=== PATIENT | female | born 1965 | race Caucasian/White ===

== ENCOUNTER 2019-12-22 14:58 | Outpatient (CLI) | payer OTHER, SELFPAY ==
--- NOTE | ~2019-12-22 | MR_ITS ---
EXAMINATION: MR cervical spine wo con DATE: 12/22/2019 19:43 INDICATION: Cervical radiculopathy. TECHNIQUE: Magnetic resonance imaging (MRI) of the cervical spine was performed without intravenous c ontrast. Sequences included sagittal T2-weighted FSE, sagittal T2-weighted FS FSE, sagittal T1-weight ed FSE, axial MERGE, and axial T2-weighted FSE. COMPARISON: None FINDINGS: There is 4 degrees levocurvature of cervical spine. There is 2 mm retrolisthesis of C5 on C 6. Vertebral body heights are normal. There is mildly decreased disc height at C4-C5 and moderately d ecreased disc height at C5-C6. The spinal cord signal intensity is normal. The following disc levels are specifically discussed: C2-C3: The disc does not extend beyond the endplate margin. There is mild left uncovertebral joint os teoarthritis. There is mild bilateral facet joint osteoarthritis. There is mild left neural foraminal stenosis. There is no central canal stenosis. C3-C4: The disc does not extend beyond the endplate margin. There is mild bilateral uncovertebral sayda nt osteoarthritis. There is moderate bilateral facet joint osteoarthritis. There is mild bilateral ne ural foraminal stenosis. There is no central canal stenosis. C4-C5: The disc is bulging. There is moderate right and mild left uncovertebral joint osteoarthritis. There is severe right and mild left facet joint osteoarthritis. There is moderate right and mild lef t neural foraminal stenosis. There is mild central canal stenosis. C5-C6: The disc is bulging. There is severe bilateral uncovertebral joint osteoarthritis. There is mi ld bilateral facet joint osteoarthritis. There is moderate bilateral neural foraminal stenosis. There is mild central canal stenosis. C6-C7: The disc does not extend beyond the endplate margin. There is mild bilateral uncovertebral sayda nt osteoarthritis. There is moderate right and mild left facet joint osteoarthritis. There is mild ri ght neural foraminal stenosis. There is no central canal stenosis. C7-T1: The disc does not extend beyond the endplate margin. There is no uncovertebral joint osteoarth ritis. There is moderate bilateral facet joint osteoarthritis. There is mild bilateral neural foramin al stenosis. There is no central canal stenosis. IMPRESSION: 1. Moderate cervical spondylosis. Reviewed, dictated and finalized at location A.
== END 2019-12-22 14:59 | disposition home or self-care (01) ==
PROVIDERS: PCP Internal Medicine
DX: Z01.818 Encounter for other preprocedural examination (principal); M47.22 Other spondylosis with radiculopathy, cervical region
CPT/HCPCS: 72141

== ENCOUNTER 2020-03-07 15:51 | Outpatient (CLI) | payer OTHER, SELFPAY ==
--- NOTE | ~2020-03-07 | XR_ITS ---
XR foot LT min 3V 03/07/2020 16:07 Indication: Left foot pain anteriorly Procedure: 4 views left foot Comparison: No prior studies for comparison. Findings: There is a degenerative calcaneal enthesophyte at the plantar surface. No acute fracture or traumatic malalignment. Lisfranc joint is intact. No focal soft tissue abnormality. No radiopaque fo reign bodies. There is an accessory ossicle distal to the fibula. Impression: 1: No acute bone or joint abnormality. Reviewed, dictated and finalized at location A. Impression: 1: No acute bone or joint abnormality.
== END 2020-03-07 16:00 | disposition home or self-care (01) ==
PROVIDERS: PCP Internal Medicine; Visit Provider Internal Medicine
DX: M79.672 Pain in left foot (principal)
CPT/HCPCS: 73630

== ENCOUNTER 2020-03-19 11:48 | Outpatient (CLI) | payer OTHER, SELFPAY ==
--- NOTE | ~2020-03-19 | XR_ITS ---
XR_CERV2-3V_CR DATE: 03/19/2020 12:16 INDICATION: Post surgical evaluation TECHNIQUE: AP, open-mouth, lateral views COMPARISON: None FINDINGS: There is straightening of the cervical spine. C1 and C2 are normally aligned and the odonto id process is intact. No fracture or dislocation or locked facet or prevertebral soft tissue swelling. Status post anterior and interbody spinal fusion at C5-6. IMPRESSION: Status post anterior and interbody spinal fusion at C5-C6 Straightening Reviewed, dictated and finalized at Location A. Reviewed, dictated and finalized at location A.
== END 2020-03-19 11:49 | disposition home or self-care (01) ==
PROVIDERS: PCP Internal Medicine
DX: M50.20 Other cervical disc displacement, unspecified cervical region (principal); Z98.1 Arthrodesis status
CPT/HCPCS: 72040

== ENCOUNTER 2020-04-17 12:45 | Outpatient (CLI) | payer OTHER, SELFPAY ==
--- NOTE | ~2020-04-17 | MR_ITS ---
EXAMINATION: MR brain/brain stem wo con EXAM DATE: 04/17/2020 13:27 INDICATION: Posterior migraine headaches. TECHNIQUE: Magnetic resonance imaging (MRI) of the brain/brain stem obtained without contrast. Sagitt al T1, axial diffusion, gradient echo (T2*), T1, T2, FLAIR sequences obtained. There is no prior st udy for comparison. FINDINGS: There are no areas of restricted diffusion to suggest acute infarction. There is no acute hemorrhage seen on the T2*, a hemosiderin sensitive sequence. No intraparenchymal brain mass. The ve ntricles are normal in size. There are no extra-axial collections. Flow voids are seen in the cereb ral arteries on the T2-weighted sequences consistent with their expected patency. Patient has had ri ght-sided ocular lens surgery. Soft tissue is unremarkable. Small left maxillary sinus mucous rete ntion cyst. Cervical fusion hardware. IMPRESSION: 1. Unremarkable brain MRI examination. Reviewed, dictated and finalized at location B.
== END 2020-04-17 12:46 | disposition home or self-care (01) ==
LOC: ANHIMG 12:48
PROVIDERS: PCP Internal Medicine; Visit Provider Internal Medicine
DX: R29.898 Other symptoms and signs involving the musculoskeletal system (principal); G43.819 Other migraine, intractable, without status migrainosus
CPT/HCPCS: 70551

== ENCOUNTER 2020-05-23 14:21 | Outpatient (CLI) | payer OTHER, SELFPAY ==
--- NOTE | ~2020-05-23 | XR_ITS ---
XR_CERV2-3V_CR DATE: 05/23/2020 14:37 INDICATION: Post surgical arthrodesis status TECHNIQUE: AP and lateral views COMPARISON: 03/19/2020 cervical spine FINDINGS: There is straightening of the cervical spine. Status post anterior and interbody spinal fusion at C5-6. C1 and C2 are normally aligned and the odontoid process is intact. No fracture or dislocation or lock ed facet or prevertebral soft tissue swelling. There is minimal anterolisthesis at C4-5, stable since . IMPRESSION: Status post anterior and interbody spinal fusion at C5-6 Stable minimal anterolisthesis at C4-5 Straightening of the cervical spine Reviewed, dictated and finalized at Location A. Reviewed, dictated and finalized at location A. [employer]
== END 2020-05-23 14:22 | disposition home or self-care (01) ==
PROVIDERS: PCP Internal Medicine
DX: M50.20 Other cervical disc displacement, unspecified cervical region (principal); Z98.1 Arthrodesis status
CPT/HCPCS: 72040

== ENCOUNTER 2020-08-03 09:00 | Outpatient (RCR) | payer OTHER, SELFPAY ==
--- NOTE | 2020-06-18 10:05 | PTOPEVAL ---
PHYSICAL THERAPY EVALUATION Thank you for referring Zahira Wiley to [facility].? The patient was evaluated with a dx of cervical pain/sprain. The patient is scheduled to be seen for therapy? 2 x/week for 4 weeks. Please review, sign, date and return this plan of care DEMARIO. I agree with and certify that the following plan of care is medically necessary. Referring Physician Date Attending Provider: Srinath Matos *PT Outpatient Evaluation Start: 06/18/20 08:33 Freq: Status: Active Protocol: Document 06/18/20 08:34 MLV (Rec: 06/18/20 09:53 MLV [id number]) Therapy Assessment Status Evaluation Information Problem Diagnosis cervical pain Onset 05/09/20 Cause tried to push a heavy w/c Additional Evaluation Detail Patient had cervical surgery January 2020 for a fusion (C5-C6) and recovered well. The patient was working and had trouble pushing a heavy w/c 2019 and felt neck and right arm pain. The patient has done 2 rounds of steroids with some relief. Subjective Information Patient currently taking Query Text:As Reported By Patient/ gabapentin, hydrocodone for Family neck issue Diagnostic Tests X-Rays For This Problem Yes: after injury : xray showed no trouble with fusion Pain Assessment Timing of Pain Assessment Timing of Pain Assessment Assessment Pain Scale Pain Scale Used Numeric (1 - 10) Self Report Pain Assessment Right Shoulder(s) Reported Pain Level 6 Pain Description Pressure,Tingling Radicular Pain Location tingling to right hand Pain Frequency Acute,Continuous Pain Aggravating Factors ADL's,Exercise/Activity, Lifting Other Pain Aggravating Factors sidelying/sleeping Pain Behaviors None Neck Reported Pain Level 4 Pain Description Pressure Pain Frequency Acute,Continuous Pain Aggravating Factors Exercise/Activity Pain Behaviors None Pain Score Pain Score 4,6: Self Report Interventions Used Interventions Used By Clinicians Education Pain Relief Interventions Used By Heat,Ice,Inactivity/Rest, Patient Medication Cervical and Lumbar ROM Cervical ROM Cervical Flexion (0-60) 50 Query Text:Active in Degrees Cervical Extension (0-70) 10 Query Text:Active in Degrees Cervical Lateral Flexion Right (0-50) 28 Query Text:Act
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
--- NOTE | 2020-08-03 09:45 | PTOPEVAL ---
PHYSICAL THERAPY DISCHARGE SUMMARY Thank you for referring Zahira Wiley to [facility] [place].? The patient has been seen 12 visits for the dx of cervical pain/radiculopathy. The patient is peaked with goals partially met. PT is discontinued as of this date. Please review, sign, date and return this plan of care. I agree with and certify the following plan of care. Referring Physician Date Attending Provider: Srinath Matos *PT Outpatient Discharge Start: 06/18/20 08:33 Freq: Status: discharged Protocol: Document 08/03/20 09:12 MLV (Rec: 08/03/20 09:45 MLV [id number]) Assessment Status Discharge Evaluation Information Problem Additional Evaluation Detail The patient reports being compliant with exercises and feels her pain is still an issue and is concerned about the continued numbness. The pateint reports frequent arm numbness that is short lived because she can change position and eliminate it. The patient takes the naproxyn and hydrocodone still. Pain Assessment Timing of Pain Assessment Timing of Pain Assessment Pre-Treatment Pain Scale Pain Scale Used Numeric (1 - 10) Self Report Pain Assessment Right Shoulder(s) Reported Pain Level 5 Pain Description Aching Pain Frequency Chronic Neck Reported Pain Level 5 Pain Frequency Chronic Pain Score Pain Score 5,5: Self Report Interventions Used Interventions Used By Clinicians Education,Heat Pain Relief Interventions Used By Exercise,Heat,Position Change Patient Cervical and Lumbar ROM Cervical ROM Cervical Flexion (0-60) 45 Query Text:Active in Degrees Cervical Extension (0-70) 52 Query Text:Active in Degrees Cervical Lateral Flexion Right (0-50) 37 Query Text:Active in Degrees Cervical Lateral Flexion Left (0-50) 29 Query Text:Active in Degrees Cervical Rotation Right (0-90) 60 Query Text:Active in Degrees Cervical Rotation Left (0-90) 60 Query Text:Active in Degrees Palpation Assessment Palpation Palpation 50-70% improved tissue and muscle tightnesses at cervicothoracic region PT Clinical Summary Mrs. Wiley is a 54 y/o female seen 12 visits for the dx of cervical pain with right arm radiculopathy. The
== END 2020-08-03 10:41 | disposition home or self-care (01) ==
LOC: ANHPT 09:00
PROVIDERS: PCP Internal Medicine
DX: M54.2 Cervicalgia (principal); Z98.1 Arthrodesis status
CPT/HCPCS: 97014; 97032; 97110; 97140; 97161; G0283

== ENCOUNTER 2020-10-31 09:41 | Outpatient (CLI) | payer OTHER, SELFPAY ==
--- NOTE | ~2020-10-31 | MM_ITS ---
EXAMINATION: MM screening ahmet BI w charline HISTORY: Screening mammogram TECHNIQUE: Craniocaudal and mediolateral oblique 3-D tomosynthesis images were obtained and synthetic 2-D images were generated. CAD analysis was submitted and interpreted. COMPARISON: No prior mammogram is available for comparison at this institution. BREAST PARENCHYMAL COMPOSITION: The breasts are almost entirely fatty. FINDINGS: There is no evidence of suspicious mass, calcification, or architectural distortion to sugg est malignancy in either breast. There has been no suspicious interval change. IMPRESSION: 1. No mammographic evidence of malignancy. 2. Recommend routine screening mammography in one year. BI-RADS Category 1: Negative Reviewed, dictated and finalized at location A.
== END 2020-10-31 09:42 | disposition home or self-care (01) ==
PROVIDERS: PCP Internal Medicine; Visit Provider Internal Medicine
DX: Z12.31 Encounter for screening mammogram for malignant neoplasm of breast (principal)
CPT/HCPCS: 77063; 77067

== ENCOUNTER 2020-11-24 02:17 | Emergency (ER) | payer OTHER, SELFPAY ==
[2020-11-24 02:26] VITALS: BP 161/88; PULSE 93; RESP 20; TEMP 36.4; O2SAT 95
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
--- NOTE | 2020-11-24 03:46 | PC.NURSE ---
Pt ambulated in restroom to provide urine specimen. Steady gait noted.
--- NOTE | 2020-11-24 04:16 | PC.NURSE ---
Pt resting on cart conversing with family member. Pt remains alert and oriented x4 with stable vitals and in no obvious distress at this time. pt advised to press call button for assistance.
[2020-11-24 04:44] LABS: Amphetamine Screen Urine Negative (Negative); Barbiturate Screen Urine Negative (Negative); Benzodiazepines Screen Urine Negative (Negative); Cannabinoid Screen Urine Positive (Negative); Cocaine Screen Urine Negative (Negative); Methadone Screen Urine Negative (Negative); Opiate Screen Urine Positive (Negative); Phencyclidine Screen Urine Negative (Negative)
--- NOTE | 2020-11-24 04:49 | PC.NURSE ---
Pt resting on cart and family member remains at bedside. Pt states she feels better and is ready to go home. Pt remains alert and oriented x4 and in on obvious distress with stable vitals. Advised to press call button for assistance.
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
--- NOTE | 2020-11-24 05:08 | PC.NURSE ---
EDMD presented to bedside to update pt on poc. All questions and concerns addressed. Pt ready for dc.
[2020-11-24 05:26] VITALS: BP 137/73; PULSE 83; RESP 19; TEMP 37.1; O2SAT 98
[2020-11-24 05:27] VITALS: BP 137/73; PULSE 83; RESP 19; O2SAT 98
== END 2020-11-24 05:28 | disposition home or self-care (01) ==
PROVIDERS: Emergency Provider Emergency Medicine; PCP Internal Medicine
DX: F11.129 Opioid abuse with intoxication, unspecified (principal); F12.929 Cannabis use, unspecified with intoxication, unspecified
CPT/HCPCS: 80307; 99283

== ENCOUNTER 2021-01-25 08:01 | Outpatient (CLI) | payer OTHER, SELFPAY ==
--- NOTE | 2021-01-25 | ECHO_ITS ---
Patient Info Name: Zahira Wiley Age: 55 years : 1965 Gender: Female Ht: 66 in Wt: 210 lbs BSA: 2.14 m2 HR: 73 bpm BP: 124 / 81 mmHg Heart Rhythm: Sinus Rhythm Exam Date: 01/25/2021 8:18 AM Exam Location: [facility] Pulmonary Patient Status: Outpatient Admit Date: 01/25/2021 Staff Ordering Physician: Radha Self Ornamental Metalwork Designer: Argentina Prince RDCS Attending Provider: Radha Self Referring Physician: Clair GREY; Exam Type: CA echo doppler color flow Study Info Indications - HEART MURMUR, HTN Complete two-dimensional, color flow and Doppler transthoracic echocardiogram is performed. Summary 1. Complete two-dimensional, color flow and Doppler transthoracic echocardiogram is performed. 2. Left ventricular chamber dimension is normal. 3. Left ventricular systolic function is normal, estimated at 60-65%. 4. The left ventricular diastolic function is grade I diastolic dysfunction. 5. E/e' 11 is mildly elevated. 6. There is mild aortic valve sclerosis. 7. There is trace aortic valve regurgitation. 8. There is trace tricuspid valve regurgitation. 9. No pulmonary hypertension, estimated pulmonary arterial systolic pressure is 22 mmHg. Left Ventricle E/e' 11 is mildly elevated. Left ventricular chamber dimension is normal. Left ventricular systolic function is normal, estimated at 60-65%. The left ventricular diastolic function is grade I diastolic dysfunction. Right Ventricle Right ventricular chamber dimension is normal. Right ventricular systolic function is normal. Left Atria Left atrial chamber dimension is normal. Right Atria Right atrial chamber dimension is normal. Aortic Valve The aortic valve is trileaflet. There is mild aortic valve sclerosis. There is no aortic valve stenosis. There is trace aortic valve regurgitation. Pulmonic Valve There is no pulmonic regurgitation. Mitral Valve There is no mitral valve stenosis. There is no mitral valve regurgitation. Tricuspid Valve There is trace tricuspid valve regurgitation. No pulmonary hypertension, estimated pulmonary arterial systolic pressure is 22 mmHg. Pericardium/Pleural There is no pericardial effusion. Inferior Vena Cava Normal inferior vena cava with >50% collapse upon inspiration consistent with normal right atrial pressure, 5 mmHg. Aorta The aortic root size at the sinus of Valsalva is normal. Left Ventricular Outflow Tract Name Value Normal LVOT 2D LVOT Diameter 1.6 cm LVOT Doppler LVOT Peak Gradient 4 mmHg LVOT Mean Gradient 2 mmHg LVOT VTI 25 cm LVOT VTI/AV VTI Ratio 0.7 LVOT Stroke Volume 48 ml LVOT CO 3.4 l/min LVOT CI 1.6 l/min/m2 Pulmonic Valve Name Value Normal RVOT Do
== END 2021-01-25 08:02 | disposition home or self-care (01) ==
PROVIDERS: PCP Internal Medicine
DX: R07.9 Chest pain, unspecified (principal); I10 Essential (primary) hypertension; I35.1 Nonrheumatic aortic (valve) insufficiency
CPT/HCPCS: 93306

== ENCOUNTER 2021-04-25 10:03 | Outpatient (CLI) | payer OTHER, SELFPAY ==
--- NOTE | 2021-04-25 | EST_ITS ---
Patient Info Name: Zahira Wiley Age: 55 years : 1965 Gender: Female Ht: 66 in Wt: 220 lbs BSA: 2.20 m2 HR: 69 bpm BP: 148 / 81 mmHg Heart Rhythm: Sinus Rhythm Exam Date: 04/25/2021 10:29 AM Exam Location: [facility] Stress Patient Status: Outpatient Admit Date: 04/25/2021 Staff Ordering Physician: Dwain, Aaron Mathis MD Attending Provider: Dwain, Aaron Mathis MD Exercise Technologist: Gayle Lal CT Exercise Physician: Umair Grajeda DO Exam Type: CA stress test treadmill Study Info Indications Z01.818 - Encounter for other preprocedural examination An exercise stress test was performed. Summary 1. 1. Negative Raudel exercise stress test for ischemic ST changes by ECG criteria. 2. 2. Reduced functional capacity, achieving 7 METs of workload. 3. 3. Baseline hypertension with hypertensive response to exercise. 4. 4. Appropriate HR response to exercise. 5. 5. Appropriate HR recovery at 1 minute post exercise. 6. 6. No imaging with stress testing. 7. 7. Patient informed of the above results. Protocol: Raudel Stress ECG Details Stage: REST Duration (min): 1 min : 17 sec Speed (mph): 0.0 Grade (%): 0 HR (bpm): 68 SBP (mmHg): 148 DBP (mmHg): 81 METS: --- Stage: REST Duration (min): 9 min : 38 sec Speed (mph): 0.0 Grade (%): 0 HR (bpm): 79 SBP (mmHg): 148 DBP (mmHg): 81 METS: --- Stage: STAGE 1 Duration (min): 1 min : 0 sec Speed (mph): 1.7 Grade (%): 10 HR (bpm): 108 SBP (mmHg): 148 DBP (mmHg): 81 METS: --- Stage: STAGE 1 Duration (min): 2 min : 0 sec Speed (mph): 1.7 Grade (%): 10 HR (bpm): 124 SBP (mmHg): 148 DBP (mmHg): 81 METS: --- Stage: STAGE 1 Duration (min): 3 min : 0 sec Speed (mph): 1.7 Grade (%): 10 HR (bpm): 127 SBP (mmHg): 197 DBP (mmHg): 100 METS: --- Stage: STAGE 2 Duration (min): 1 min : 0 sec Speed (mph): 2.5 Grade (%): 12 HR (bpm): 141 SBP (mmHg): 197 DBP (mmHg): 100 METS: --- Stage: STAGE 2 Duration (min): 2 min : 0 sec Speed (mph): 2.5 Grade (%): 12 HR (bpm): 156 SBP (mmHg): 218 DBP (mmHg): 94 METS: --- Stage: STAGE 2 Duration (min): 3 min : 0 sec Speed (mph): 2.5 Grade (%): 12 HR (bpm): 160 SBP (mmHg): 218 DBP (mmHg): 94 METS: --- Stage: RECOVERY Duration (min): 0 min : 59 sec Speed (mph): 0.0 Grade (%): 0 HR (bpm): 138 SBP (mmHg): 202 DBP (mmHg): 94 METS: --- Stage: RECOVERY Duration (min): 1 min : 59 sec Speed (mph): 0.0 Grade (%): 0 HR (bpm): 106 SBP (mmHg): 202 DBP (mmHg): 94 METS: --- Stage: RECOVERY Duration (min): 2 min : 59 sec Speed (mph): 0.0 Grade (%): 0 HR (bpm): 91 SBP (mmHg): 208 DBP (mmHg): 85 METS: --- Stage: RECOVERY Duration (min): 3 min : 59 sec Speed (mph): 0.0 Grade (%): 0 HR
== END 2021-04-25 10:04 | disposition home or self-care (01) ==
PROVIDERS: PCP Internal Medicine; Visit Provider Internal Medicine
DX: R07.89 Other chest pain (principal); Z01.818 Encounter for other preprocedural examination
CPT/HCPCS: 93017

== ENCOUNTER 2021-08-06 08:00 | Outpatient (CLI) | payer OTHER, SELFPAY | END 2021-08-06 08:01 | disposition home or self-care (01) | LOC: ANHBWCAUD 08:01 | PROVIDERS: PCP Internal Medicine; Visit Provider Otolaryngology | DX: R06.83 Snoring (principal); R29.818 Other symptoms and signs involving the nervous system; G47.33 Obstructive sleep apnea (adult) (pediatric); H90.42 Sensorineural hearing loss, unilateral, left ear, with unrestricted hearing on the contralateral side | CPT/HCPCS: 92557; 92567 ==

== ENCOUNTER 2021-08-09 07:49 | Outpatient (CLI) | payer OTHER, SELFPAY ==
--- NOTE | 2021-08-12 15:08 | WPDHOMESLEEP ---
Sleep Study - Home Unattended Date of Study: 08/09/21 <Marianne Spivey DO - Last Filed: 08/12/21 15:29> Ordering Provider: Israel Eugene APRN <Marianne Spivey DO - Last Filed: 08/12/21 15:29> Interpreting Provider: Marianne Spivey DO <Marianne Spivey, DO - Last Filed: 08/12/21 15:29> Home Sleep Study Type: Watch PAT <Marianne Spivey DO - Last Filed: 08/12/21 15:29> Height: 1.68 m <Marianne Spivey DO - Last Filed: 08/12/21 15:29> Weight: 102.058 kg <Marianne Spivey DO - Last Filed: 08/12/21 15:29> Body Mass Index: 36.3 <Marianne Spivey DO - Last Filed: 08/12/21 15:29> Neck Circumference (inches): 16 <Marianne Spivey DO - Last Filed: 08/12/21 15:29> [place]: 8 <Marianne Spivey DO - Last Filed: 08/12/21 15:29> Reason for Sleep Study Evaluation of DANYELLE. Daytime hypersomnia <Marianne Spivey DO - Last Filed: 08/12/21 15:29> Sleep History The patient is a 55-year-old female with anxiety, chronic headaches, 3rd is and hypertension that had a home sleep test ordered by the pulmonary group for evaluation of DANYELLE. The patient states that she wakes up with a rapid heart rate multiple times throughout the night. This has been going on for the past 4-6 months. Her brother and father have DANYELLE and are [place] past. Patient rarely awakens from sleep short of breath. She rarely awakens at night with heartburn, belching or cough. She occasionally snores but it is really loud enough that others complain. She occasionally has trouble sleeping she has a cold. She denies waking up gasping for air through the night. She rarely has breathing problems at night observed by others. She frequently sweats excessively at night. She occasionally has heart palpitations or irregular beats during the night. She denies falling asleep during the day and while driving. She frequently has trouble at work due to sleepiness. She occasionally feels unable to move while waking or falling asleep. She occasionally has vivid dreamlike scenes upon awakening or falling asleep. She rarely has nightmares. She occasionally has thoughts racing through her mind. She occasionally feels sad or depressed. She occasionally has anxiety. She occasionally notices parts of her body jerk when falling asleep. She rarely kicks during the night. She rarely has crawling and aching feelings in her legs and rarely has leg pain during the night. She rarely grinds her teeth during sleep and rarely awakens with a morning jaw pain. She constantly is bothered by neck pain during the day and frequently awakened by pain during the night. She constantly wakes up feeling stiff in the morning with sore and achy muscles. She constantly wakes up with pain in the neck, spine and other joints. She does take [place] 5/325 as needed for neck pain. She goes to bed at 11:00 p.m. on weekdays and between 11:00 p.m. and midnight on the weekends. It takes her 30 minutes to an hour to fall asleep. She wakes up 4-6 times throughout the night to adjust her patella. She can fall back asleep within 5 minutes. She gets 8 hours of sleep per night. She wakes up at 6:15 a.m. on work days and between 9 and 10:00 am on other days. she will stay in bed for 20 minutes after waking up in the morning. She has her boyfriend stay over the weekends. She does not consume any caffeinated beverages within 2 hours of bedtime. She does not engage in physical exercise before bedtime. She will watch television before falling asleep. She will take half in the afternoon or the evening and they are refreshing. She consumes 2 caffeinated beverages per day. Nine she drinks 1-2 alcoholic beverages per day. She denies tobacco or recreational drug use. <Marianne Spivey, - Last Filed: 08/12/21 15:29> [facility] Past Medical History Medical History: Medical History
[2021-08-12 15:16] VITALS: BMI 36.3
== END 2021-08-12 13:11 | disposition home or self-care (01) ==
LOC: ANHCSM 07:49
PROVIDERS: PCP Internal Medicine; Visit Provider Nurse Practitioner Family
DX: G47.31 Primary central sleep apnea (principal)
CPT/HCPCS: 95800

== ENCOUNTER 2022-08-26 12:30 | Outpatient (RCR) | payer OTHER, SELFPAY ==
--- NOTE | 2022-08-01 11:46 | PTOPEVAL1 ---
Assessment and note entered by Chiara Santana, PT Evaluation Information Assessment Status Evaluation Diagnosis s/p cervical fusion, radiculopathy Onset Jun 03, 2022 Subjective Information since surgery, lifting restriction to gallon of milk, some neck motions to stretch a little; previous PT prior to surgery- massage, exercises and stim helped; have lifting restriction of light weight only-- gallon of milk; limited cleaning and home tasks due to neck pain and lifting limits; have home stim unit- have not been using-- discussed PRN use; Reported Pain Level Pain Score Self Report Additional Pain Score Comments pain range of 3-7/10;sharp pain with turn head, strong pain at times; R and L cervical and B into elbows, hands--intermittent tingling into palm, not fingers; increase pain at end of day, with driving 15 min, sleeping--awaken 4-5x/night due to pain; activity and use of arms; sitting 20 min; decrease change positions, walk, ice, meds-- gabapentin, hydrocodone at night and PRN day time; muscle relaxer; Neck Disability Index 50% limitation; Assessment PT Clinical Summary Chiara is s/p cervical fusion surgery in May. This was her third cervical surgery. She reports radicular pain into R and L UE to palms/hands; decreased activity tolerance with home tasks and driving; sleeping, sitting disrupted. Self assessment Neck Disability Index is 50% limitation in activity. With the evaluation, she has pain with cervical flexion, extension, rotation R and L motions; poor standing position of neck and shoulders and muscle spasms over neck and thoracic area. Skilled PT services are indicated for modalities to decrease pain and spasms; manual therapy to decrease adhesions over cervical scar; therapeutic exercises to stretch cervical musculature and strengthen for improved posture and alignment; education for home exercises, posture correction and management of pain. Plan of Care Interventions Electrical Stimulation,Hot Pack/Cold Pack,Manual Therapy,Neuro Re-education,Patient/Caregiver Education,Therapeutic Activities,Therapeutic Exercise,Ultrasound,Other Other Interventions
--- NOTE | 2022-08-19 07:59 | PCPTNOTE ---
Patient called to cancel. No reason given.
--- NOTE | 2022-08-28 10:22 | PCPTNOTE ---
Patient called & cancelled scheduled appointment this date due to having to take her dog to the tire fabric inspector to be put down. Will attempt to reschedule evaluation as able.
--- NOTE | 2022-09-08 09:53 | PTOPDC ---
Assessment and note entered by Maggi Franco, PT, DPT Evaluation Information Assessment Status Discharge - Pt Not Present Diagnosis s/p cervical fusion, radiculopathy Onset Jun 03, 2022 Subjective Information Pt called and cancelled her scheduled re- evaluation this date, she states her doctor told her she does not need to continue therapy. Assessment PT Clinical Summary Betina completed 5 visits of skilled therapy from 08/01/22 to 08/26/22. She will be discharged at this time, if she needs additional therapy at a later date, she will need a new order. Plan of Care Treatment Frequency and discharge Duration
== END 2022-09-08 10:19 | disposition home or self-care (01) ==
LOC: ANHGOSHPT 12:30
PROVIDERS: PCP Internal Medicine; Visit Provider Neurological Surgery
DX: M54.12 Radiculopathy, cervical region (principal); M54.2 Cervicalgia; Z98.1 Arthrodesis status
CPT/HCPCS: 97110; 97112; 97140; 97161

== ENCOUNTER 2025-02-27 11:14 | Emergency (ER) | payer OTHER, SELFPAY ==
[2025-02-27] VITALS (8 sets, daily range): BP systolic 121–138; BP diastolic 45–86; PULSE 65–80; RESP 12–16; TEMP 36.4; O2SAT 96–100
--- NOTE | ~2025-02-27 | XR_ITS ---
EXAM/PROCEDURE: XR chest 2V - 02/27/2025 12:42 CDT HISTORY: 59 years old Female with cp TECHNIQUE: Two view(s) of the chest. COMPARISON: None available. FINDINGS: LUNGS/ PLEURA: No focal consolidation. No appreciable pneumothorax or large pleural effusion. HEART/ MEDIASTINUM: Heart appears normal in size. BONES: No acute osseous abnormality. Partially seen cervical fusion hardware. OTHER: Visualized upper abdomen is unremarkable. IMPRESSION: No acute process. Reviewed, dictated and finalized at location A. IMPRESSION: No acute process.
--- NOTE | 2025-02-27 11:16 | ECG_ITS ---
Test Date: 2025-02-27 11:18:50 Measurements Intervals [place] Rate: 73 P: 58 AR: 167 QRS: 32 QRSD: 82 T: 56 QT: 394 QTc: 435 Interpretive Statements SINUS RHYTHM POSSIBLE LEFT ATRIAL ENLARGEMENT MINIMAL Q WAVES- INFERIOR LEADS BORDERLINE ST ABNORMALITY- ANTEROLATERAL LEADS BASELINE ARTIFACT- V5-V6 BORDERLINE ECG No previous ECG available for comparison Electronically Signed On 02-27-2025 11:29:18 CDT by Umair Grajeda D.O.
[2025-02-27 11:43] LABS: Hematocrit 40.1 % (37.0-47.0); Hemoglobin 13.3 g/dL (12.0-15.0); Immature Granulocyte Percent A 0.4 % (0-0.5); Lymphocytes Absolute Auto 1.99 K/mm3 (0.9-3.2); Mean Corpuscular HGB Conc 33.2 g/dl (32-36); Mean Corpuscular Hemoglobin 31.6 pg (26-34); Mean Corpuscular Volume 95.2 fl (80-100); Nucleated Red Blood Cells Absolute Auto 0.000 K/mm3 (0.0-0.012); Nucleated Red Blood Cells Perc 0.0 % (0.0-0.2); Platelet Count Result 289 k/mm3 (150-375); Red Blood Count 4.21 M/mm3 (4.2-5.4); White Blood Count 8.5 K/mm3 (4.5-10.0)
[2025-02-27 11:52] LABS: Alanine Aminotransferase 59 U/L (6-35); Albumin Level 4.4 g/dL (3.5-5.1); Alkaline Phosphatase 111 U/L (38-126); Anion Gap 10 mmol/L (4-12); Aspartate Amino Transferase 54 U/L (14-36); Bilirubin,Total 0.6 mg/dL (0.2-1.3); Blood Urea Nitrogen 8 mg/dL (7-17); Calcium 9.4 mg/dL (8.4-10.2); Carbon Dioxide 27 mmol/L (22-30); Chloride 100 mmol/L (98-107); Estimated Glomerular Filt Rate > 60; Glucose 111 mg/dL (65-110); Lipase 146 U/L (23-300); Potassium 3.6 mmol/L (3.4-5.0); Sodium 137 mmol/L (137-145); Total Protein 7.9 g/dL (6.3-8.2)
[2025-02-27 12:00] LABS: INR 1.0; Prothrombin Time 13.2 Seconds (11.1-14.7)
[2025-02-27 12:01] LABS: Partial Thromboplastin Time 26.0 Seconds (22.3-36.8)
[2025-02-27 12:04] LABS: Troponin I < 0.012 ng/mL (0.000-0.034)
--- OUTSIDE RECORDS SUMMARY | 2025-02-27 12:36 | XMS_ITS | Encounter Summary ---
Author Organization [facility] Healthcare Address [address] [place] [address] Care Team Providers Care Instrument Technician Apprentice Name Role Phone Aaron Prakash MD Primary Care Provider + Froilan Villeda MD Primary Care Provider [phone] Encounter Details Date Type Department Care Team (Late st Contact Info) Description 09/10/2020 Telephone [facility] [address], [place] [id number] Kayla Blevins, RT Social History Tobacco Use Types Packs/Day Years Used Date Smoking Tobacco: Never Smokeless Tobacco: Never Alcohol Use Standard Drinks/Week Comments Yes 0 (1 standard drink = 0.6 oz pur e alcohol) Comments No Sex and Gender Information Value Date Recorded Sex Assigned at Not on file Legal Sex Female 4:40 PM HAND SANDER Gender Identity Female 12/23/2021 6:44 PM CDT Sexual Orientation Straight 04/27/2019 2: 53 PM CDT documented as of this encounter Plan of Treatment Not on file documented as of this encounter Visit Diagnoses Not on filedocumented in this encounter Care Teams Instrument Technician Apprentice Relationship Specialty Start Date End Date Aaron Prakash MD PCP - General Internal Medicine 02/03/18 09/27/23 Froilan Villeda MD [address] [place] [id number] PCP - General Internal Medicine 09/28/23 documented as of this encounter
--- OUTSIDE RECORDS SUMMARY | 2025-02-27 12:36 | XMS_ITS | Clinical Summary ---
Author Organization [facility] Address [address] [place] [address] Care Team Providers Care Log Sorting Supervisor Name Role Phone Froilan Villeda MD Primary Care Provider [phone] Allergies Active Allergy Reactions Criticality Noted Date Comments Codeine Nausea and Vomiting,Nausea Only Low 05/19/2012 Iodinated Contrast Media Hives,Itching High 05/22/2011 Lisinopril-Hydrochlor othiazide Rash Medium 04/05/2021 Nuts Anaphylaxis,Swelling High 06/23/2016 Also allergic to PECANS Also allergic to PECANS Throat swells, itching Also allergic to PECANS, WALNUTS Throat swells, itching Medications ketoconazole (NIZORAL) 2 % shampoo 11/27/19 23 Active Apremilast (OTEZLA) 10 & 20 & 30 MG Tablet Therapy Pack Please take pills daily as outlined: Day 1: 10 mg in morning. Day 2: 10 mg in morning and 10 mg in evening. Day 3: 10 mg in morning and 20 mg in evening. Day 4: 20 mg in morning and 20 mg in evening.Day 5: 20 mg in morning and 30 mg in evening. Day 6 and thereafter: 30 mg twice daily 10/16/19 24 Active clobetasol (TEMOVATE) 0.05 % external solution 11/10/19 24 Active EPINEPHrine 0.3 MG/0.3ML injectionIndicat ions:Drug therapy Inject 0.3 mLs (0.3 mg total) into the muscle as needed for Anaphylaxis. 1 each 1 06/27/20 24 Active gabapentin (NEURONTIN) 100 MG tablet Take 1 tablet (100 mg total) by mouth as needed. Active CPAP DEVICE, DME,Indications: DANYELLE (obstructive sleep apnea) Send to Aprtx 1 Device 10/19/19 25 Active ALPRAZolam (XANAX) 0.25 MG tabletIndication s:SHAHEEN (generalized anxiety disorder) Take 1 tablet (0.25 mg total) by mouth nightly as needed. 20 tablet 10/22/19 25 Active metoprolol succinate ER (TOPROL-XL) 50 MG 24 hr tabletIndication s:Essential (primary) hypertension Take 1 tablet (50 mg total) by mouth daily. 90 tablet 1 01/11/20 25 Active losartan-hydroCH LOROthiazide (HYZAAR) 100-12.5 MG tabletIndication s:Essential (primary) hypertension,Low er extremity edema Take 1 tablet by mouth daily. 90 tablet 1 01/11/20 25 Active HYDROcodone-acet aminophen (NORCO) 10-325 MG tabletIndication s:Chronic Pain Take 1 tablet by mouth daily as needed. Indications: Chronic Pain 30 tablet 01/11/20 25 Active methocarbamol (ROBAXIN) 750 MG TabIndications:C ervical vertebral fusion Take 1 tablet (750 mg total) by mouth 3 (three) times daily as needed. 90 tablet 1 01/11/20 25 Active DULoxetine (CYMBALTA) 60 MG capsuleIndicatio ns:Mild episode of recurrent major depressive disorder,SHAHEEN (generalized anxiety disorder) TAKE 2 CAPSULES BY MOUTH AT BEDTIME 180 capsule 1 01/11/20 25 Active buPROPion XL (WELLBUTRIN XL) 300 MG 24 hr tabletIndication s:Mild episode of recurrent major depressive disorder Take 1 tablet (300 mg total) by mouth every morning. 90 tablet 1 01/11/20 25 Active azelastine 0.1 % nasal sprayIndications :Nasal congestion 2 sprays by Nasal route 2 (two) times daily as needed for Rhinitis. Use in each nostril as directed 10 mL 3 01/11/20 25 Active tacrolimus (PROTOPIC) 0.1 % ointment Apply to face and body two times daily. 30 days supply. Reasons: Psoriasis 12/17/19 25 Active methylphenidate LA (RITALIN LA) 20 MG 24 hr capsuleIndicatio ns:Attention deficit hyperactivity disorder (ADHD), combined type Take 1 capsule (20 mg total) by mouth every morning. 30 capsule 02/18/20 25 Active gabapentin (NEURONTIN) 300 MG capsuleIndicatio ns:Degenerative cervical spinal stenosis Take 1 capsule (300 mg total) by mouth 2 (two) times daily as needed. 180 capsule 1 02/22/20 25 Active gabapentin (NEURONTIN) 300 MG capsuleIndicatio ns:Degenerative cervical spinal stenosis Take 1 capsule (300 mg total) by mouth 2 (two) times daily as needed. 180 capsule 1 03/18/20 24 025 Discontinued(R eorder) methylphenidate LA (RITALIN LA) 10 MG 24 hr capsuleIndicatio ns:Attention or concentration deficit Take 1 capsule (10 mg total) by mouth every morning. 30 capsule 01/11/20 25 025 Discontinued methylphenidate (RITALIN) 5 MG tabletIndication s:Attention or concentration deficit Take 1 tablet (5 mg total) by mouth daily. Take at noon. 30 tablet 01/11/20 25 025 Discontinued Active Problems Problem Noted Date Diagnosed Date Closed fracture of distal end of fibula 07/15/19 25 Sebopsoriasis 03/14/2022 Chronic, continuous use of opioids 05/01/2021 Class 2 obesity in adult 05/01/2021 Asthma (HHS/HCC) 05/01/2021 At risk for obstructive sleep apnea 05/01/2021 Cervical disc disorder with radiculopathy of cervical region 03/05/2021 Overview (10/23/2023): Added automatically from request for surgery [id number] Cervical radiculopathy 07/21/2019 Chronic constipation 07/20/2019 Cervicalgia 03/10/2019 Degenerative cervical spinal stenosis 03/10/2019 Bilateral occipital neuralgia 11/13/2017 Gastroesophageal reflux disease without esophagi tis 04/30/2016 Overview (10/23/2023): Controlled with OTC nexium daily. monitor Controlled with OTC nexium daily. monitor Carpal tunnel syndrome of left wrist 04/30/2016 Overview (01/21/2024): Get records from prior ortho. Consider referral to ortho to address Get records from prior ortho. Consider referral to ortho to address Irritable bowel syndrome 11/26/2013 Overview (10/23/2023): IRRITABLE BOWEL SYNDROME Chronic migraine with aura and status migrainosu s 11/23/2013 Overview (10/23/2023): Headache Migraine without aura and wi th status migrainosus, not intractable 08/04/2013 Depression 05/08/2011 Overview (10/23/2023): Depression Essential (primary) hypertension 05/08/2011 Overview (10/23/2023): Hypertension Extrinsic asthma without complication ([facility]/HCC) 05/08/2011 Generalized anxiety disorder 05/08/2011 Moderate episode of recurrent major depressive d isorder 05/08/2011 Encounters Date Type Department Care Team Description 02/27/2025 Telephone [facility] [place] [address] [place] [address] Froilan Villeda MD Chest Pain; Breathing Problem 02/24/2025 [email or web address] Message Enc [facility] [place] [address] [id number] Lucila, [facility] Provider PAIN 02/23/2025 Prep for Procedure [facility] [place] [address] [id number] Bernice Draper, ERP TECHNICAL LEAD 02/23/2025 MyChart Message Enc [facility] [address], [address] [place] [address] Alban Stewart MD Pain with nerve pain 02/21/2025 Orders Only [facility] [address] [address] [place] [address] Froilan Villeda MD 02/21/2025 Telephone [facility] [address] [address] [address] [place] [address] Froilan Villeda MD Medication Information 02/17/2025 11:00 AM CDT Office Visit [address] [address] [place] [address] Yazmin Goldberg, INBOUND CALL CENTER AGENT Forms 02/17/2025 Travel 02/17/2025 Telephone [address] [address] [place] [address] Froilan Villeda MD Information 02/15/2025 Telephone [facility] [place] [address] [id number] Eileen Hercules, MC Follow Up Call 02/15/2025 MyChart Message Enc [facility] [place] [address] [id number] Bernice Draper, ERP TECHNICAL LEAD No relief from last procedure 02/14/2025 Scan [facility] INFO SRVCS Scanned, [facility] 02/10/2025 MyChart Message Enc [facility] [address] [address] [place] [address] Froilan Villeda MD fmla paperwork 01/25/2025 MyChart Message Enc [facility] [place] [address] [place] [address] Froilan Villeda MD New prescription symptoms 01/18/2025 Telephone [facility] [place] [address] Alban Stewart MD Allergies 01/17/2025 Telephone [facility] [address], [address] [place] [id number] Alban Stewart MD Appointment Reminder 01/12/2025 12:00 PM CDT - 01/12/2025 12:20 PM CDT Surgery [facility] [place] [address] [id number] Lucila Oliveira MD INJECTION EPIDURAL STEROID CERVICAL [id number] 01/12/2025 11:09 AM CDT - 01/12/2025 12:19 PM CDT Hospital Encounter [facility] [place] [address] [id number] Lucila Oliveira MD Discharge Disposition: Home or Self Care (Routine Discharge) 01/12/2025 Telephone [facility] [place] [address] [id number] Alida Cerda, RN Fax Documentation 01/11/2025 Travel 01/10/2025 9:00 AM CDT Telemedicine [facility] [place] [address] [place] [address] Froilan Villeda MD Physical (States its a 8 week f/u on medication states it is going great) 01/10/2025 MyChart Message Enc [facility] [address] [place] [address] Froilan Villeda MD Appointment dates 01/09/2025 MyChart Message Enc [facility] [address] [place] [address] Froilan Villeda MD Appt 01/1012/19/2024 Orders Only [facility] [address] [place] [address] Froilan Villeda MD 12/19/2024 Telephone [facility] [address] [place] [address] Froilan Villeda MD Medication Request 12/09/2024 Telephone [facility] [address] [place] [phone] Katarina Austin PTA Called To Cancel Office Appt. 12/06/2024 4:20 PM CDT Office Visit [facility] [address] [place] [address] Froilan Villeda MD Swelling (Ankle and feet ongoing months. ); Hypertension 12/06/2024 3:45 PM CDT Office Visit [facility] [address] [place] [address] Froilan Villeda MD Meyer, Debra S, PTA Ankle/foot Pain 12/06/2024 Travel 12/02/2024 Telephone [facility] [address] [place] [address] Katarina Austin PTA Called To Cancel Office Appt. 12/01/2024 Telephone [facility] [place] [address] [place] [address] Froilan Villeda MD Follow Up 11/30/2024 1:30 PM CDT Office Visit [facility] [place] [facility] [address] [place] [address] Froilan Villeda MD Weedon, Meaghan B, PT Ankle/foot Pain 11/30/2024 Travel from Last 3 Months Immunizations Immunization Administration Dates Next Due Influenza (Generic) 04/27/2024,,04/24/2020,2019,04/21/2016 Influenza Adult (Generic) 04/30/2023,,06/18/2018,2014 PFIZER COVID-19 (12+) MRNA, LNP-S, PF, ISAC-SUCROSE, 30 MCG/0.3 ML (COMIRNATY) 04/30/2023 PFIZER COVID-19 (ORIGINAL FORMULATION, PURPLE CAP) mRNA, LNP-S, PF, 30 MCG/0.3 ML DOSE 06/02/2021 Pneumococcal (Prevnar 20) 05/31/2024 Shingrix 11/22/2020 Td (TDVAX) 12/11/2001 Tdap (Generic) 12/31/2018 Family History Medical History Relation Comments Hypertension Brother Heart attack for brother at age 59 Arthritis Father Cancer Father On scalp, stage 2 Hypertension Father Arthritis Mother Hypertension Mother Akosua Tiwari Retardation/Learning Difficulties Paternal Aunt Asthma Son Hypertension Son Relation Status Comments Brother Father Mother Paternal Aunt Alive Son Alive Social History Tobacco Use Types Packs/Day Years Used Date Smoking Tobacco: Never Passive Smoke Exposure: Never Smokeless Tobacco: Never Tobacco Cessation:Counseling Given: No Comments:None Alcohol Use Standard Drinks/Week Comments Yes 6 (1 standard drink = 0.6 oz pur e alcohol) Seltzers a week B1300 Health Literacy Answer Date Recor ded How often do you need to hav e someone help you when you read instructions, pamphlets, or other written material from your doctor or pharmacy? Never 11/08/2024 AHC Utilities Answer Date Recorded In the past 12 months has e [employer], [employer], oil, or water [employer] threatened to shut off services in your home? No 11/08/2024 Humiliation, Afraid, Rape, and Kick questionnair e Answer Date Recorded Within the last year, have y ou been afraid of your partner or ex-partner? No 11/08/2024 Within the last year, have y ou been humiliated or emotionally abused in other ways by your partner or ex-partner? No Within the last year, have y ou been kicked, hit, slapped, or otherwise physically hurt by your partner or ex-partner? No 11/08/2024 Within the last year, have y ou been raped or forced to have any kind of sexual activity by your partner or ex-partner? No 11/08/2024 Social Connection and Isolat ion Panel [NHANES] Answer Date Recorded In a typical week, how many times do you talk on the phone with family, friends, or neighbors? More than three times a week 11/08/2024 How often do you get togethe r with friends or relatives? More than three times a week 11/08/2024 How often do you attend [facility] or catholic services? Patient unable to answer 11/08/2024 Do you belong to any clubs o r organizations such as worship groups, unions, fraternal or athletic groups, or school groups? No 11/08/2024 How often do you attend meet ings of the clubs or organizations you belong to? Never 11/08/2024 Are you , , di vorced, , never , or living with a partner? 11/08/2024 AUDIT-C Answer Date Recorded Q1: How often do you have a drink containing alc ohol? Monthly or less 11/08/2024 Q2: How many drinks containi ng alcohol do you have on a typical day when you are drinking? 3 or 4 11/08/2024 Q3: How often do you have si x or more drinks on one occasion? Never 11/08/2024 Overall Financial Resource Strain (CARDIA) Answe r Date Recorded How hard is it for you to pa y for the very basics like food, housing, medical care, and heating? Not very hard 11/08/2024 PHQ-2 Answer Date Recorded Patient Health Questionnaire-2 Score 6 11/08/2024 [facility] - Occupational Stress Questionnaire Answer Date Recorded Do you feel stress - tense, restless, nervous, or anxious, or unable to sleep at night because your mind is troubled all the time - these days? Rather much 11/08/2024 Hunger Vital Sign Answer Date Recorded Within the past 12 months, y ou worried that your food would run out before you got the money to buy more. Never true 11/09/19 25 Within the past 12 months, t he food you bought just didn't last and you didn't have money to get more. Never true 11/08/2024 PRAPARE - Transportation Answer Date Re corded In the past 12 months, has l ack of transportation kept you from medical appointments or from getting medications? No 10/12 In the past 12 months, has l ack of transportation kept you from meetings, work, or from getting things needed for daily living? No 11/08/2024 Housing Stability Vital Sign Answer Hai e Recorded In the last 12 months, was t here a time when you were not able to pay the mortgage or rent on time? No 11/08/2024 Number of Times Moved in the Last Year Not on fi le 11/08/2024 At any time in the past 12 m [facility], were you homeless or living in a retirement (including now)? No 11/08/2024 Comments No Sex and Gender Information Value Date Recorded Sex Assigned at Female 09/02/2023 11:01 AM DIRECTOR OF PHYSICIAN PRACTICES Legal Sex Female 3:52 PM CDT Gender Identity Female 09/02/2023 11:01 AM DIRECTOR OF PHYSICIAN PRACTICES Sexual Orientation Straight 09/02/2023 11 :01 AM DIRECTOR OF PHYSICIAN PRACTICES Last Filed Vital Signs Vital Sign Reading Time Taken Comments Blood Pressure 134/79 02/17/2025 11:05 AM CDT Pulse 78 02/17/2025 11:05 AM CDT Temperature 36.6 C (97.8 F) 02/17/2025 11:05 AM CDT Respiratory Rate 18 02/17/2025 11:0 5 AM CDT Oxygen Saturation 97% 02/17/2025 11: 05 AM CDT Inhaled Oxygen Concentration - - Weight 102.8 kg (226 lb 9.6 oz) 025 11:05 AM CDT Height 167.6 cm (5' 6) 02/17/2025 11:0 5 AM CDT Body Mass Index 36.57 02/17/2025 11:05 AM CDT Plan of Treatment Upcoming Encounters Date Type Department Care Team (Late st Contact Info) Description 03/07/2025 9:30 AM CDT Appointment [facility] [place] [address] Alban Stewart MD [address] [place] [address] 03/07/2025 11:00 AM CDT Appointment [facility] [place] [address] Alban Stewart MD [address] [place] [address] 03/07/2025 12:00 PM CDT [place] [address] Alban Stewart MD [address] [place] [address] 03/15/2025 3:00 PM CDT Office Visit [facility] [place] [address] [place] [address] Yazmin Goldberg, KATIUSKA [address] [place] [address] 03/17/2025 11:40 AM CDT Office Visit [facility] Medical [facility] [address] [place] [address] Alban Stewart MD [address] [place] [address] 04/14/2025 10:20 AM CDT Office Visit [facility] - [address] [place] [address] Froilan Villeda MD [address] [place] [address] Health Maintenance Due Date Last Done Comments Colorectal Cancer Screening Colonoscopy (10 Years) 1965 Hepatitis B Vaccines (1 of 3 - 19+ 3-dose series) 11/16/1986 Zoster Vaccines (2 of 2) 01/17/2021 11/22/2020 Mammogram Screening 10/31/2022 10/31/2020, 09/02/2019, 09/16/2017 COVID-19 Vaccine ( season) 2024 04/30/2023, 06/02/2021, 07/20/2020, Additional history exists Annual Physical 01/10/2026 01/10/2025, 08/24/2023 Cervical Cancer Screening Pap Smear (Age 30 to 64) Every 3 Years 10/22/2026 10/23/2023 Cervical Cancer Screening Pap with HPV Testing (Age 30 to 64) Every 5 Years 10/22/2028 10/23/2023 Cervical Cancer Screening with HPV 10/22/2028 DTaP, Tdap and Td Vaccines (2 - Td or Tdap) 12/31/2028 12/31/2018, 12/11/2001 Hepatitis C Completed 11/20/2023 Pneumococcal Vaccine: 50+ Years Completed 05/31/2024 PHQ-2 (Physician [place]) Completed 11/08/2024 Meningococcal B Vaccine Aged Out No l onger eligible based on patient's age to complete this topic Meningococcal Vaccine Aged Out No shaila isaiah eligible based on patient's age to complete this topic RSV Immunizations Under 20 Months Aged Out No longer eligible based on patient's age to complete this topic Procedures Procedure Name Priority Date/Time Associated Diagnosis Comments NJX INTERLAMINAR CRV/THRC 01/12/2025 11:59 AM CDT Cervical radiculopathy XR PA[facility] C-ARM Today 01/12/2025 11:41 AM CDT COLLECTION VENOUS BLOOD VENIPUNCTURE Routine 01/10/2025 9:37 AM CDT Annual physical exam General medical exam Drug therapy HEPATITIS C ANTIBODY Routine 11/20/2023 9:31 AM CDT Annual physical exam Establishing care with new doctor, encounter for General medical exam Encounter for hepatitis C screening test for low risk patient CYTOPATH CERV/VAG THIN LAYER Routine 10/23/2023 9:15 AM CDT HUMAN PAPILLOMAVIRUS, HIGH-RISK TYPES Routine 10/23/2023 8:00 AM CDT from Last 3 Months or Most Recently Relevant to Health Maintenance Results * XR PAIN CLINIC C-ARM (01/12/2025 11:41 AM CDT) Narrative Radiology, Technologist - 01/12/2025 11:41 AM CDT This report does not contain a radiologist's interpretation. Please review associated procedure and/or operative report. Lucila Oliveira MD GENERAL IMAGING Final Result * HEPATITIS C ANTIBODY (11/20/2023 9:31 AM CDT) HEPATITIS C AB NON-REACTI VE NON-REACT KERMIT 11/20/2023 7:46 PM CDT [facility] Comment: ANTIBODIES TO HCV NOT DETECTED. DOES NOT EXCLUDE THE POSSIBILITY OF EXPOSURE TO HCV. 11/20/2023 9:31 AM CDT Froilan Villeda MD LABORATORY Final Result [facility] [address] [place] [address], [id number] * Cytopath Cerv/Vag Thin Layer (10/23/2023 9:15 AM CDT) THIN PREP PAP [address] [address] Department of Pathology Pathology Report CERVICAL/VAGINAL PAP SMEAR REPORT Name: ZAHIRA GUERRA Age: 5 1965 (Age: 57) Location: [facility] Sex: F Collected Date: 10/23/2023 [facility] #: [id number] Date Received: 10/26/2023 Date Reported: 10/29/2023 Provider: FROILAN VILLEDA MD INTERPRETATION CERVICAL/ENDOCERVI JHONATAN: SATISFACTORY FOR EVALUATION. NEGATIVE FOR INTRAEPITHELIAL LESION OR MALIGNANCY. MILD ATROPHY. NEGATIVE FOR HIGH RISK HPV. The FDA approved Aptima HPV assay is an in vitro nucleic acid amplification test for the qualitative detection of E6/E7 viral messenger RNA (mRNA) from 14 high-risk types of human papillomavirus (HPV) in cervical specimens. The high-risk HPV types detected by the assay include: 16,18,31,33,35,39, 45,51,52,56,58,59, 66, and 68. Electronically Signed Out By JORDAN Braedn (ASCP) CLINICAL HISTORY (Z12.4) ENCOUNTER FOR SCREENING FOR CERVICAL CANCER ROUTINE PAP TEST ThinPrep Pap Test with HR HPV testing in patient > 30 years requested. Date of Last Menstrual Period: FIVE YEARS AGO Menstrual Status: Post-Menopausal SPECIMEN SUBMITTED CERVICAL/ENDOCERVI JHONATAN Specimen Received:1 Thin Prep Vial, Image Assisted Pap (SMD) Please note: The Pap smear is not a diagnostic test. It is a screening test. Negative results on combined screening (Pap test and HPV-DNA) have a high negative predictive value (99.1-100 percent) for cervical cancer. The pap test is not effective in detecting cervical adenocarcinoma. [facility] () [facility] 10/23/2023 9:15 AM CDT 10/26/2023 9:15 AM CDT Comment:CERVICAL/ENDOCERVICA L Froilan Villeda MD PATHOLOGY/CYTOLOGY ORDERABLES Fi nal Result Performing Organization Address City/Special Care Hospital/ZIP Co de Phone Number [facility] [address] [place] [address], [place] [phone] * HUMAN PAPILLOMAVIRUS, HIGH-RISK TYPES (10/23/2023 8:00 AM CDT) SPEC DESCRIPTION CERVIX 10/26/19 9:34 AM CDT [facility] HPV DNA HIGH RISK NEGATIVE NEGATIVE 10/27/2023 2:00 AM CDT [facility] Comment:SEE CYTOLOGY REPORT 10/23/2023 8:00 AM CDT Froilan Villeda MD PATHOLOGY/CYTOLOGY ORDERABLES Fi nal Result Performing Organization Address [facility] Co de Phone Number [facility] [address] [place] [address], [place] [phone] from Last 3 Months or Most Recently Relevant to Health Maintenance Insurance MEDICA Member Subscriber Plan / Payer (Ef fective 2022-Present) Name:Zahira Guerra Relation to Subscriber:Self Name:Zahira Guerra Payer ID:Not on file Group ID:[id number] Type:Not on file Address: [place] [id number] [address] Care Teams Log Sorting Supervisor Relationship Specialty Start Date End Date Froilan Villeda MD [address] [address] PCP - General INTERNAL MEDICINE 01/26/23
--- OUTSIDE RECORDS SUMMARY | 2025-02-27 12:36 | XMS_ITS | Encounter Summary ---
Author Organization [facility] Health Address [address] [place] [address] Care Team Providers Care Baseball Pitcher Name Role Phone Radha Brewer MD Primary Care Provider Aaron Prakash MD Primary Care Provider Froilan Villeda MD Unavailable Froilan Villeda MD Primary Care Provider [phone] Radha Brewer MD Unavailable [phone] Encounter Details Date Type Department Care Team (Late st Contact Info) Description 02/04/2016 Lab Requisition [facility] [address] [place] [address] Unknown, Provider Social History Tobacco Use Types Packs/Day Years Used Date Smoking Tobacco: Never Assessed Comments Unknown Sex and Gender Information Value Date Recorded Sex Assigned at Female 05/02/2022 10:59 AM CDT Legal Sex Female 7:30 PM CDT Gender Identity Female 05/02/2022 10:59 AM CDT Sexual Orientation Straight 05/02/2022 10 :59 AM CDT documented as of this encounter Plan of Treatment Upcoming Encounters Date Type Department Care Team (Late Contact Info) Description 06/16/2025 9:30 AM GRAY MIXING OPERATOR Office Visit [facility] - Dermatology [address] [place] [phone] Sharri Metzger MD [address] [facility] 3L [place] [phone] documented as of this encounter Procedures Procedure Name Priority Date/Time Associated Diagnosis Comments RUBEOLA ANTIBODY IGG Routine 02/04/2016 8:50 AM CDT MUMPS ANTIBODY IGG Routine 02/04/2016 8: 50 AM CDT VARICELLA ZOSTER ANTIBODY IGG Routine 02/04/2016 8:50 AM CDT RUBELLA ANTIBODY IGG Routine 02/04/2016 8:50 AM CDT HEPATITIS B SURFACE ANTIBODY Routine 02/04/2016 8:50 AM CDT documented in this encounter Results * VARICELLA ZOSTER ANTIBODY IGG (02/04/2016 8:50 AM CDT) Varicella zoster Virus Antibody IgG 1495 Immune >165 index 02/06/2016 1:14 PM CDT [facility] ([facility]) Comment: Negative <135 Equivocal 135 - 165 Positive >165 A positive result generally indicates exposure to the pathogen or administration of specific immunoglobulins, but it is not indication of active infection or stage of disease. Blood specimen (specimen) BLOOD SPECIMEN / Unknown Venipuncture / Unknown 02/04/2016 8:50 AM CDT 02/04/2016 7:32 PM CDT Narrative [facility] ([facility]) - 02/06/2016 1:14 PM CDT Performed at: [facility] [address] [place] [address] [id number] Audio/Visual Manager: Antonio Blanco PhD, Phone: [phone] us Provider Unknown LAB - CHEMISTRY ORDERABLES Flor l Result [facility] ([facility]) [address] [place] [address] * RUBEOLA ANTIBODY IGG (02/04/2016 8:50 AM CDT) [facility] Measles (Rubeola) Antibody IgG 101.0 Immune >29.9 AU/mL 02/06/2016 1:14 PM CDT [facility] ([facility]) Comment: Negative <25.0 Equivocal 25.0 - 29.9 Positive >29.9 Presence of antibodies to Rubeola is presumptive evidence of immunity except when acute infection is suspected. Blood specimen (specimen) BLOOD SPECIMEN / Unknown Venipuncture / Unknown 02/04/2016 8:50 AM CDT 02/04/2016 7:32 PM CDT [facility]ative [facility]) - 02/06/2016 1:14 PM CDT Performed at: [address] [place] [id number] Audio/Visual Manager: Antonio Blanco PhD, Phone: [phone] Provider Unknown LAB - CHEMISTRY ORDERABLES Flor l Result Performing Organization Address [facility] de Phone Number [facility] [employer] [facility] [address] [place] [address] * MUMPS ANTIBODY IGG (02/04/2016 8:50 AM CDT) [facility] Mumps Virus Antibody IgG Index 29.8 Immune >10.9 AU/mL 02/06/2016 1:14 PM CDT [facility]) Comment: Negative <9.0 Equivocal 9.0 - 10.9 Positive >10.9 A positive result generally indicates past exposure to Mumps virus or previous vaccination. Blood specimen (specimen) BLOOD SPECIMEN / Unknown Venipuncture / Unknown 02/04/2016 8:50 AM CDT 02/04/2016 7:32 PM CDT Narrative [facility]) - 02/06/2016 1:14 PM CDT Performed at: [address] [place] [address] [id number] Audio/Visual Manager: Antonio Blanco PhD, Phone: [phone] us Provider Unknown LAB - CHEMISTRY ORDERABLES Flor l Result Performing Organization Address [facility] de Phone Number [facility] [employer] [facility] [address] [place] [address] * RUBELLA ANTIBODY IGG (02/04/2016 8:50 AM CDT) Rubella Antibody IgG Positive - Immune 02/04/2016 8:42 PM CDT [facility] Blood BLOOD SPECIMEN / Unknown Venipuncture / Unknown 02/04/2016 8:50 AM CDT 02/04/2016 7:32 PM CDT Provider Unknown LAB - SEROLOGY ORDERABLES Final Result Performing Organization Address [facility] Co de Phone Number [facility] [address] [place] [address] * (ABNORMAL) HEPATITIS B SURFACE ANTIBODY (02/04/2016 8:50 AM CDT) HBsAb REACTIVE(A ) Non Reactive 02/04/2016 8:42 PM CDT [facility] Blood BLOOD SPECIMEN / Unknown Venipuncture / Unknown 02/04/2016 8:50 AM CDT 02/04/2016 7:32 PM CDT us Provider Unknown LAB - CHEMISTRY ORDERABLES Flor l Result Performing Organization Address [facility] Co de Phone Number [facility] [address] [place] [address] documented in this encounter Visit Diagnoses Not on filedocumented in this encounter Care Teams Baseball Pitcher Relationship Specialty Start Date End Date Radha Brewer MD PCP - General Family Medicine 04/30/16 02/08/19 Aaron Prakash MD [address] [place] [phone] PCP - General 01/20/22 02/11/24 Froilan Villeda MD [address] [place] [address] [place] [address] PCP - Attributed-[employer] [facility] STL 09/11/23 Froilan Villeda MD [address] [facility] [address] [place], [place] [phone] PCP - General Internal Medicine 02/12/24 Radha Brewer MD [address] [facility] [address] [place] [phone] PCP - Attributed-Exclusive Choice 12/26/16 05/02/17 documented as of this encounter
--- OUTSIDE RECORDS SUMMARY | 2025-02-27 12:36 | XMS_ITS | Encounter Summary ---
Author Organization [facility] Address [address] [place] [address] Care Team Providers Care Systems Test Technician Name Role Phone Aaron Prakash MD Primary Care Provider [phone] Reason for Visit * Reason Onset Date Comments Medication Refill 02/09/2015 Encounter Details Date Type Department Care Team (Late st Contact Info) Description 02/09/2015 Refill [facility] [address] [place] [address] [address] [place] [address] Danni Piña NP NO ADDRESS ON FILE Social History Tobacco Use Types Packs/Day Years Used Date Smoking Tobacco: Never Smokeless Tobacco: Never Alcohol Use Standard Drinks/Week Comments Yes 5.8 (1 standard drink = 0.6 oz p ure alcohol) Comments No Sex and Gender Information Value Date Recorded Sex Assigned at Not on file Legal Sex Female 6:04 AM BIOINFORMATICS SOFTWARE ENGINEER Gender Identity Not on file Sexual Orientation Not on file Occupation Industry Job Start Date Job End Date Not on file Not on file Not on file Not on file documented as of this encounter Plan of Treatment Not on file documented as of this encounter Visit Diagnoses Not on filedocumented in this encounter Care Teams Systems Test Technician Relationship Specialty Start Date End Date Aaron Prakash MD PCP - General Internal Medicine 01/27/18 documented as of this encounter
--- OUTSIDE RECORDS SUMMARY | 2025-02-27 12:37 | XMS_ITS | Encounter Summary ---
Author Organization [facility] - [facility] Address [address] [place] [address] Care Team Providers Care Button And Buckle Maker Name Role Phone Froilan Villeda MD Primary Care Provider [phone] Encounter Details Date Type Department Care Team (Latest Contact Info) Description 09/22/2023 MyChart Message Enc [facility] Medical Group Multispecialty Care - [address] [place], [place] [phone] Froilan Villeda MD [address] [facility] [address] [place], [place] [phone] Pain/numbness need steroid prescription plz Social History Tobacco Use Types Packs/Day Years Used Date Smoking Tobacco: Never Passive Smoke Exposure: Never Smokeless Tobacco: Never Alcohol Use Standard Drinks/Week Comments Yes 20 (1 standard drink = 0.6 oz pu re alcohol) PHQ-2 Answer Date Recorded Patient Health Questionnaire-2 Score 3 09/23/2023 Comments Unknown Sex and Gender Information Value Date Recorded Sex Assigned at Female 09/02/2023 11:01 AM BOTTOMING MACHINE OPERATOR Legal Sex Female 3:52 PM CDT Gender Identity Female 09/02/2023 11:01 AM BOTTOMING MACHINE OPERATOR Sexual Orientation Straight 09/02/2023 11 :01 AM BOTTOMING MACHINE OPERATOR documented as of this encounter Functional Status * Over the past 2 weeks, how often have you been bothered by any of the following problems? Question Answer Date of Assessment Author Status Little interest or pleasure in doing things More than half the days 09/23/2023 2:09 PM CDT Linda Plascencia MA Active Feeling down, depressed, or hopeless Several days 09/23/2023 2:09 PM CDT Linda Plascencia MA Active Patient Health Questionnaire-2 Score 3 09/23/2023 2:09 PM CDT Linda Plascencia MA Active * Question Answer Date of Assessment Author Status Trouble falling or staying asleep, or sleeping too much Several days 09/23/2023 2:09 PM CDT Linda Plascencia MA Active Feeling tired or having little energy Several days 09/23/2023 2:09 PM CDT Linda Plascencia MA Active Poor appetite or overeating Not at all 09/23/2023 2:09 PM CDT Linda Plascencia MA Active Feeling bad about yourself - or that you are a failure or have let yourself or your family down Several days 09/23/2023 2:09 PM CDT Linda Plascencia MA Active Trouble concentrating on things, such as reading the newspaper or watching television Several days 09/23/2023 2:09 PM CDT Linda Plascencia MA Active Moving or speaking so slowly that other people could have noticed? Or the opposite - being so fidgety or restless that you have been moving around a lot more than usual. Not at all 09/23/2023 2:09 PM CDT Linda Plascencia MA Active Thoughts that you would be better off or hurting yourself in some way Not at all 09/23/2023 2:09 PM CDT Linda Plascencia MA Active Patient Health Questionnaire-9 Score 7 09/23/2023 2:09 PM CDT Linda Plascencia MA Active * If you checked off any problems on this questionnaire so far, Question Answer Date of Assessment Author Status How difficult have these problems made it for you to do your work, take care of things at home, or get along with other people? Extremely difficult 09/23/2023 2:09 PM CDT Linda Plascencia MA Active * Over the last 2 weeks, how often have you been bothered by any of the following problems? Question Answer Date of Assessment Author Status Feeling nervous, anxious, or on edge 1 09/23/2023 2:12 PM CDT Linda Plascencia MA Activ e Not being able to stop or control worrying 2 09/23/2023 2:12 PM CDT Linda Plascencia MA Acti ve Worrying too much about different things 1 09/23/2023 2:12 PM CDT Linda Plascencia MA Actrobyn ve Trouble relaxing 3 09/23/2023 2:12 PM CDT Linda Plascencia MA Active Being so restless that it is hard to sit still 3 09/23/2023 2:12 PM CDT Linda Plascencia MA Act travis Becoming easily annoyed or irritable 2 09/23/2023 2:12 PM CDT Linda Plascencia MA Activ e Feeling afraid as if something awful might happen 0 09/23/2023 2:12 PM CDT Susana Plascencia MA Active SHAHEEN-7 Total Score 12 09/23/2023 2:12 PM CDT Linda Plascencia MA Active documented as of this encounter Plan of Treatment Upcoming Encounters Date Type Department Care Team (Late st Contact Info) Description 03/07/2025 9:[address] [facility] [place] [address] Alban Stewart MD [address] [place] [address] 03/07/2025 11:[address] [place] [address] Alban Stewart MD 3 [place] [address] 03/07/2025 12:[address] [facility] [place] [address] Alban Stewart MD [address] [place] [address] 03/15/2025 3:00 PM CDT Office Visit [facility] Medical [facility] Multispecialty Care - [address] [address] [address] [place] [address] Yazmin Goldberg, KATIUSKA [address] [facility] [address] [place] [address] 03/17/2025 11:40 AM CDT [facility] [address] [facility], [address] [place] [address] Alban Stewart MD [address] [place] [address] 04/14/2025 10:20 AM CDT Office Visit [facility] - [place] [address] [address] [address] [place] [address] Froilan Villeda MD [address] [address] documented as of this encounter Visit Diagnoses Not on filedocumented in this encounter Additional Health Concerns Assessment Noted Time PHQ-9 Depression Total Score: 20 08/24/2 024 3:24 PM BOTTOMING MACHINE OPERATOR documented as of this encounter Care Teams Button And Buckle Maker Relationship Specialty Start Date End Date Froilan Villeda MD [address] [address] PCP - General INTERNAL MEDICINE 01/26/23 documented as of this encounter
--- OUTSIDE RECORDS SUMMARY | 2025-02-27 12:37 | XMS_ITS | Encounter Summary ---
Author Organization [facility] - [facility] Address [address] [place] [address] Care Team Providers Care Preventive Maintenance Coordinator Name Role Phone Froilan Villeda MD Primary Care Provider [phone] Encounter Details Date Type Department Care Team (Latest Contact Info) Description 09/03/2023 MyChart Message Enc [facility] Medical Group Multispecialty Care [address] [place], [place] [phone] Froilan Villeda MD [address] [facility] 157 [place], [place] [phone] new prescription Guanfacine ER 2 mg Social History Tobacco Use Types Packs/Day Years Used Date Smoking Tobacco: Never Passive Smoke Exposure: Never Smokeless Tobacco: Never Alcohol Use Standard Drinks/Week Comments Yes 20 (1 standard drink = 0.6 oz pu re alcohol) PHQ-2 Answer Date Recorded Patient Health Questionnaire-2 Score 5 08/24/2023 Comments Unknown Sex and Gender Information Value Date Recorded Sex Assigned at Female 09/02/2023 11:01 AM AFTER SCHOOL PROGRAM COORDINATOR Legal Sex Female 3:52 PM CDT Gender Identity Female 09/02/2023 11:01 AM AFTER SCHOOL PROGRAM COORDINATOR Sexual Orientation Straight 09/02/2023 11 :01 AM AFTER SCHOOL PROGRAM COORDINATOR documented as of this encounter Plan of Treatment Upcoming Encounters Date Type Department Care Team (Late st Contact Info) Description 03/07/2025 9:[address] [facility] [place] [address] Alban Stewart MD 3 [place] [address] 03/07/2025 11:00 AM CDT Appointment [facility] [place] [place] [address] Alban Stewart MD 3 [place] [address] 03/07/2025 12:[address] [place] [address] Alban Stewart MD 3 [place] [address] 03/15/2025 3:00 PM CDT Office Visit [facility] Medical [facility] Multispecialty Care - [place] [address] [place] [address] Yazmin Goldberg, SENIOR HRIS ANALYST [address] [place] [address] 03/17/2025 11:40 AM CDT Office Visit [facility] Multispecialty Care - [facility] [address] [place] [address] Alban Stewart MD 3 [place] [address] 04/14/2025 10:20 AM CDT Office Visit [facility] Medical Group Multispecialty Care - [place] [address] [place] [address] [address] [place] [address] Froilan Villeda MD [address] [place] [address] documented as of this encounter Visit Diagnoses Not on filedocumented in this encounter Additional Health Concerns Assessment Noted Time PHQ-9 Depression Total Score: 20 024 3:24 PM AFTER SCHOOL PROGRAM COORDINATOR documented as of this encounter Care Teams Preventive Maintenance Coordinator Relationship Specialty Start Date End Date Froilan Villeda MD [address] [place] [address] PCP - General INTERNAL MEDICINE 01/26/23 documented as of this encounter
--- OUTSIDE RECORDS SUMMARY | 2025-02-27 12:38 | XMS_ITS | Encounter Summary ---
Author Organization [facility] - [facility] Address [address] [place] [address] Care Team Providers Care Centrifugal Extractor Operator Name Role Phone Froilan Villeda MD Primary Care Provider [phone] Encounter Details Date Type Department Care Team (Late st Contact Info) Description 09/28/2023 MyChart Message Enc [facility] Medical Group Multispecialty Care [address] [address] [address] [place], [place] [phone] Froilan Villeda MD 1188 [facility] 157 [place], [place] [phone] Work Comp form Social History Tobacco Use Types Packs/Day Years Used Date Smoking Tobacco: Never Passive Smoke Exposure: Never Smokeless Tobacco: Never Comments:Counseled by Dr. Nona shin. Alcohol Use Standard Drinks/Week Comments Yes 20 (1 standard drink = 0.6 oz pu re alcohol) PHQ-2 Answer Date Recorded Patient Health Questionnaire-2 Score 3 09/23/2023 Comments Unknown Sex and Gender Information Value Date Recorded Sex Assigned at Female 09/02/2023 11:01 AM VOCATIONAL NURSING INSTRUCTOR Legal Sex Female 3:52 PM CDT Gender Identity Female 09/02/2023 11:01 AM VOCATIONAL NURSING INSTRUCTOR Sexual Orientation Straight 09/02/2023 11 :01 AM VOCATIONAL NURSING INSTRUCTOR documented as of this encounter Plan of Treatment Upcoming Encounters Date Type Department Care Team (Late st Contact Info) Description 03/07/2025 9:[address] [place] [address] Alban Stewart MD 3 [place] [address] 03/07/2025 11:[address] [facility] [place] [place] [address] Alban Stewart MD 3 [place] [address] 03/07/2025 12:[address] [place] [address] Alban Stewart MD 3 [place] [address] 03/15/2025 3:00 PM CDT Office Visit [facility] Medical Group Multispecialty Care - [place] [address] [place] [address] Yazmin Goldberg, [address] [place] [address] 03/17/2025 11:40 AM CDT Office Visit [facility] Medical [facility] [address] [place] [address] Alban Stewart MD 3 [place] [address] 04/14/2025 10:20 AM CDT Office Visit [facility] Medical Group Multispecialty Care - [place] [address] [address] [address] [place] [address] Froilan Villeda MD [address] [place] [address] documented as of this encounter Visit Diagnoses Not on filedocumented in this encounter Additional Health Concerns Assessment Noted Time PHQ-9 Depression Total Score: 7 09/23/19 24 2:09 PM CDT documented as of this encounter Care Teams Centrifugal Extractor Operator Relationship Specialty Start Date End Date Froilan Villeda MD [address] [place] [address] PCP - General INTERNAL MEDICINE 01/26/23 documented as of this encounter
--- OUTSIDE RECORDS SUMMARY | 2025-02-27 12:39 | XMS_ITS | Encounter Summary ---
Author Organization [facility] - [facility] Address [address] [place] [address] Care Team Providers Care Service Tech Name Role Phone Froilan Villeda MD Primary Care Provider [phone] Encounter Details Date Type Department Care Team (Late Contact Info) Description 02/10/2025 MyChart Message Enc [facility] Medical Group Multispecialty Care - [place] [address] [address] [address] [place], [place] [phone] [place] [address] [place] [address] [address] [place], [place] [phone] fmla paperwork Social History Tobacco Use Types Packs/Day Years Used Date Smoking Tobacco: Never Passive Smoke Exposure: Never Smokeless Tobacco: Never Comments:None Alcohol Use Standard Drinks/Week Comments Yes 6 (1 standard drink = 0.6 oz pur e alcohol) Seltzers a week B1300 Health Literacy Answer Date Recor ded How often do you need to hav e someone help you when you read instructions, pamphlets, or other written material from your doctor or pharmacy? Never 11/08/[address] [facility] Utilities Answer Date Recorded In the past 12 months has th e electric, gas, oil, or water company threatened to shut off services in your [...] week 11/08/2024 How often do you attend chur or yarsani services? Patient unable to answer 11/08/2024 Do you belong to any clubs o r organizations such as gnosticist groups, unions, fraternal or athletic groups, or [...] Recorded Patient Health Questionnaire-2 Score 6 11/08/2024 [facility] - Occupational Stress [...] any time in the past 12 m [facility], were you homeless or living in a residential (including now)? No 11/08/2024 Comments No Sex and Gender Information Value Date Recorded Sex Assigned at Female 09/02/2023 11:01 AM THICKENER OPERATOR Legal Sex Female 3:52 PM CDT Gender Identity Female 09/02/2023 11:01 AM THICKENER OPERATOR Sexual Orientation Straight 09/02/2023 11 :01 AM THICKENER OPERATOR documented as of this encounter Plan of Treatment Upcoming Encounters Date Type Department Care Team (Late st Contact Info) Description 03/07/2025 9:[address] [facility] [address] Alban Stewart MD 3 [place], [place] [address] 03/07/2025 11:[address] [facility] [address] Alban Stewart MD [address] [place] [address] 03/07/2025 12:[address] [facility] [address] Alban Stewart MD 3 [facility] [place] [address] 03/15/2025 3:00 PM CDT [facility] [address] [place] [address] Yazmin Goldberg NP [address] [place] [address] [address] [place] [address] 03/17/2025 11:40 AM CDT [facility] [address] [place] [address] Alban Stewart MD 3 [facility] [place] [address] 04/14/2025 10:20 AM CDT [facility] - [place] [address] [address] [place] [address] Froilan Villeda MD [address] [place] [address] 157 [place] [address] documented as of this encounter Visit Diagnoses Not on filedocumented in this encounter Additional Health Concerns Assessment Noted Time PHQ-9 Depression Total Score: 14 025 1:31 PM THICKENER OPERATOR documented as of this encounter Care Teams Service Tech Relationship Specialty Start Date End Date Froilan Villeda MD [address] [address] PCP - General INTERNAL MEDICINE 01/26/23 documented as of this encounter
--- OUTSIDE RECORDS SUMMARY | 2025-02-27 12:40 | XMS_ITS | Encounter Summary ---
Author Organization [facility] Address [address] [place] [address] Care Team Providers Care Tourist Home Keeper Name Role Phone Froilan Villeda MD Primary Care Provider [phone] Encounter Details Date Type Department Care Team (Late st Contact Info) Description 02/15/2025 Fanergies Message Enc [facility] Interventional Pain Management Center [facility] [place] [address] [id number] Bernice Draper, SURFACE SUPERVISOR [address] [phone] (Work) No relief from last procedure Social History Tobacco Use Types Packs/Day Years [...] from your doctor or pharmacy? Never 11/08/2024 [facility] Utilities Answer Date Recorded In the past [...] week 11/08/2024 How often do you attend [facility] or orth[facility] services? Patient unable to answer 11/08/2024 Do you belong to any clubs o r organizations such as episcopal groups, unions, fraternal or athletic groups, or [...] Recorded Patient Health Questionnaire-2 Score 6 11/08/2024 [facility] - Occupational Stress Questionnaire Answer Date [...] any time in the past 12 m [facility], were you homeless or living in a mcfp (including now)? No 11/08/2024 Comments No Sex and Gender Information Value Date Recorded Sex Assigned at Female 09/02/2023 11:01 AM FACILITIES TECHNICIAN Legal Sex Female 3:52 PM CDT Gender Identity Female 09/02/2023 11:01 AM FACILITIES TECHNICIAN Sexual Orientation Straight 09/02/2023 11 :01 AM FACILITIES TECHNICIAN documented as of this encounter Plan of Treatment Upcoming Encounters Date Type Department Care Team (Late st Contact Info) Description 03/07/2025 9:[address] [place] [address] Alban Stewart MD 3 [place] [address] 03/07/2025 11:[address] Interventional Radiology [place], [place] [address] Alban Stewart MD [address] [facility] [place] [address] 03/07/2025 12:[address] [facility] [address] [facility] [place] [address] Alban Stewart MD [address] [facility] [place] [address] 03/15/2025 3:00 PM CDT Office Visit [facility] Multispecialty Care - [address] [place] [address] [place] [address] [place] [address] 157 [address] [place] [address] 03/17/2025 11:40 AM CDT Office Visit [facility] Multispecialty Care - [facility] [address] [place] [address] Alban Stewart MD 3 [place] [address] 04/14/2025 10:20 AM CDT Office Visit [facility] Multispecialty Care - [address] [place] [address] [place] [address] [place] [address] 157 [place] [address] documented as of this encounter Visit Diagnoses Not on filedocumented in this encounter Additional Health Concerns Assessment Noted Time PHQ-9 Depression Total Score: 14 025 1:31 PM FACILITIES TECHNICIAN documented as of this encounter Care Teams Tourist Home Keeper Relationship Specialty Start Date End Date Froilan Villeda MD [address] [address] PCP - General INTERNAL MEDICINE 01/26/23 documented as of this encounter
--- OUTSIDE RECORDS SUMMARY | 2025-02-27 12:41 | XMS_ITS | Encounter Summary ---
Author Organization [facility] Address [address] [place] [address] Care Team Providers Care Molasses Coloring Operator Name Role Phone Froilan Villeda MD Primary Care Provider [phone] Encounter Details Date Type Department Care Team (Late st Contact Info) Description 02/23/2025 MyChart Message Enc [facility] Medical [facility] Multispecialty Care - [facility] 3 [facility], [address] [place] [id number] Alban Stewart MD 3 [place] [address] Pain with nerve pain Social History Tobacco Use Types Packs/Day Years [...] from your doctor or pharmacy? Never 11/08/2024 [facility] Utilities Answer Date Recorded In the [...] week 11/08/2024 How often do you attend [facility] or mandaeism services? Patient unable to answer 11/08/2024 Do you belong to any clubs o r organizations such as mosque groups, unions, fraternal or athletic groups, or [...] Recorded Patient Health Questionnaire-2 Score 6 11/08/2024 [facility] [place] of Occupat ional Health - Occupational Stress [...] time in the past 12 m [facility], were you homeless or living in a usp (including now)? No 11/08/2024 Comments No Sex and Gender Information Value Date Recorded Sex Assigned at Female 09/02/2023 11:01 AM MICROSOFT CRM DEVELOPER Legal Sex Female 3:52 PM CDT Gender Identity Female 09/02/2023 11:01 AM MICROSOFT CRM DEVELOPER Sexual Orientation Straight 09/02/2023 11 :01 AM MICROSOFT CRM DEVELOPER documented as of this encounter Plan of Treatment Upcoming Encounters Date Type Department Care Team (Late st Contact Info) Description 03/07/2025 9:[address] [place], [place] [address] Alban Stewart MD 3 [place], [place] [id number] 03/07/2025 11:[address] [place] [place] [address] Alban Stewart MD 3 [place] [address] 03/07/2025 12:[address] [facility] [address] [facility] [place] [address] Alban Stewart MD 3 [place] [address] 03/15/2025 3:00 PM CDT Office Visit [facility] Medical [facility] Multispecialty Care - [address] [place] [address] [place] [address] [place] [address] [address] [place] [address] 03/17/2025 11:40 AM CDT Office Visit [facility] Medical [facility] Multispecialty Care - [place] [address] [place] [address] Alban Stewart MD 3 [place] [address] 04/14/2025 10:20 AM CDT Office Visit [facility] Multispecialty Care - [address] [place] [address] [place] [address] [place] [address] [address] [place] [address] documented as of this encounter Visit Diagnoses Not on filedocumented in this encounter Additional Health Concerns Assessment Noted Time PHQ-9 Depression Total Score: 14 025 1:31 PM MICROSOFT CRM DEVELOPER documented as of this encounter Care Teams Molasses Coloring Operator Relationship Specialty Start Date End Date Froilan Villeda MD [address] [address] PCP - General INTERNAL MEDICINE 01/26/23 documented as of this encounter
--- OUTSIDE RECORDS SUMMARY | 2025-02-27 12:42 | XMS_ITS | Encounter Summary ---
Author Organization [facility] Address [address] [place] [address] Care Team Providers Care Animal Laboratory Helper Name Role Phone Froilan Villeda MD Primary Care Provider [phone] Encounter Details Date Type Department Care Team (Late Contact Info) Description 02/24/2025 Affectv Message [facility] Interventional [place] [address] [id number] [facility] PAIN Social History Tobacco Use Types Packs/Day Years [...] your doctor or pharmacy? Never 11/08/2024 [facility] Utilities Answer Date Recorded In the past 12 months has e electric, gas, oil, or water company [...] week 11/08/2024 How often do you attend [facility] or yarsanism services? Patient unable to answer 11/08/2024 Do you belong to any clubs o r organizations such as sikh groups, unions, fraternal or athletic groups, or [...] Recorded Patient Health Questionnaire-2 Score 6 11/08/2024 [facility] [place] of Occupat ional Health - Occupational Stress [...] any time in the past 12 m [facility], were you homeless or living in a group home (including now)? No 11/08/2024 Comments No Sex and Gender Information Value Date Recorded Sex Assigned at Female 09/02/2023 11:01 AM OTORHINOLARYNGOLOGIST Legal Sex Female 3:52 PM CDT Gender Identity Female 09/02/2023 11:01 AM OTORHINOLARYNGOLOGIST Sexual Orientation Straight 09/02/2023 11 :01 AM OTORHINOLARYNGOLOGIST documented as of this encounter Plan of Treatment Upcoming Encounters Date Type Department Care Team (Late st Contact Info) Description 03/07/2025 9:[address] [facility] [address] Alban Stewart MD 3 [place] [address] 03/07/2025 11:[address] [address] Alban Stewart MD 3 [place] [address] 03/07/2025 12:00 PM CDT App[place]ment [place] [address] Alban Stewart MD 3 [place] [address] 03/15/2025 3:00 PM CDT [facility] - [place] [address] [address] [address] [place] [address] Yazmin Goldberg NP [address] [place] [address] [address] [place] [address] 03/17/2025 11:40 AM CDT [facility] 3 [facility], [address] [place] [address] Alban Stewart MD 3 [place] [address] 04/14/2025 10:20 AM CDT Office Visit [facility] - [address] [place] [address] Froilan Villeda MD [address] [place] [address] documented as of this encounter Visit Diagnoses Not on filedocumented in this encounter Additional Health Concerns Assessment Noted Time PHQ-9 Depression Total Score: 14 025 1:31 PM OTORHINOLARYNGOLOGIST documented as of this encounter Care Teams Animal Laboratory Helper Relationship Specialty Start Date End Date Froilan Villeda MD [address] [place] [address] PCP - General INTERNAL MEDICINE 01/26/23 documented as of this encounter
--- OUTSIDE RECORDS SUMMARY | 2025-02-27 12:42 | XMS_ITS | Encounter Summary ---
Author Organization [facility] Address [address] [place] [address] Care Team Providers Care Pecan Picker Name Role Phone Froilan Villeda MD Primary Care Provider [phone] Reason for Visit * Reason Onset Date Comments Chest Pain 02/27/2025 Breathing Problem 02/27/2025 Encounter Details Date Type Department Care Team (Late st Contact Info) Description 02/27/2025 Telephone [facility] Medical Group Multispecialty Care - [place] [address] [address] [place] [address] Froilan Villeda MD [address] [place] [address] 157 [place], [place] [phone] Chest Pain; Breathing Problem Social History Tobacco Use Types Packs/Day Years [...] from your doctor or pharmacy? Never 11/08/2024 [facility] Utilities Answer Date Recorded In the past [...] week 11/08/2024 How often do you attend [facility] or druze services? Patient unable to answer 11/08/2024 Do you belong to any clubs o r organizations such as amish groups, unions, fraternal or athletic groups, or [...] Recorded Patient Health Questionnaire-2 Score 6 11/08/2024 [facility] of Occupat ional Health - Occupational Stress [...] any time in the past 12 m [facility], were you homeless or living in a fpc (including now)? No 11/08/2024 Comments No Sex and Gender Information Value Date Recorded Sex Assigned at Female 09/02/2023 11:01 AM SANDER OPERATOR Legal Sex Female 3:52 PM CDT Gender Identity Female 09/02/2023 11:01 AM SANDER OPERATOR Sexual Orientation Straight 09/02/2023 11 :01 AM SANDER OPERATOR documented as of this encounter Progress Notes * Rosa Roman - 02/27/2025 10:48 AM CDT Patient called in with complaints of pain on left side of body radiating down along with chest painand SOB. Per Caprice advise patient to go to ER to get evaluated. Patient voiced understanding. documented in this encounter Plan of Treatment Upcoming Encounters Date Type Department Care Team (Late st Contact Info) Description 03/07/2025 9:[address] [place] [address] Alban Stewart MD 3 [place] [address] 03/07/2025 11:[address] [facility] [place] [address] Alban Stewart MD 3 [place] [address] 03/07/2025 12:[address] [place] [address] Alban Stewart MD 3 [place] [address] 03/15/2025 3:00 PM CDT Office Visit [facility] Multispecialty [facility] [address] [place] [address] Yazmin Goldberg, DIGITAL MEDIA ANALYST [address] [place] [address] 03/17/2025 11:40 AM CDT Office Visit [facility] Multispecialty Care - [place] [facility] [address] [place] [address] Alban Stewart MD 3 [place] [address] 04/14/2025 10:20 AM CDT Office Visit [facility] Multispecialty Care - [address] [place] [address] Froilan Villeda MD [address] [place] [address] documented as of this encounter Visit Diagnoses Not on filedocumented in this encounter Additional Health Concerns Assessment Noted Time PHQ-9 Depression Total Score: 14 025 1:31 PM SANDER OPERATOR documented as of this encounter Care Teams Pecan Picker Relationship Specialty Start Date End Date Froilan Villeda MD [address] [place] [address] PCP - General INTERNAL MEDICINE 01/26/23 documented as of this encounter
--- OUTSIDE RECORDS SUMMARY | 2025-02-27 12:43 | XMS_ITS | Encounter Summary ---
Author Organization [facility] Address [address] [place] [address] Care Team Providers Care Senior Digital Designer Name Role Phone Froilan Villeda MD Primary Care Provider [phone] Encounter Details Date Type Department Care Team (Late st Contact Info) Description 08/26/2024 Mumboet Message Enc [facility] Medical Group Multispecialty Care - [place] [address] [place], [place] [id number] Yazmin Goldberg, RAND TACKER [address] [place], [place] [phone] FMLA Social History Tobacco Use Types Packs/Day Years Used Date Smoking Tobacco: Never Passive Smoke Exposure: Never Smokeless Tobacco: Never Comments:Counseled by Dr. Nona shin. Alcohol Use Standard Drinks/Week Comments Yes 20 (1 standard drink = 0.6 oz pu re alcohol) PHQ-2 Answer Date Recorded Patient Health Questionnaire-2 Score 0 08/26/2024 Comments No Sex and Gender Information Value Date Recorded Sex Assigned at Female 09/02/2023 11:01 AM SCIENCE PROFESSOR Legal Sex Female 3:52 PM CDT Gender Identity Female 09/02/2023 11:01 AM SCIENCE PROFESSOR Sexual Orientation Straight 09/02/2023 11 :01 AM SCIENCE PROFESSOR documented as of this encounter Functional Status * Over the past 2 weeks, how often have you been bothered by any of the following problems? Question Answer Date of Assessment Author Status Little interest or pleasure in doing things Not at all 08/26/2024 10:00 AM Crissy Goddard MA Active Feeling down, depressed, or hopeless Not at all 08/26/2024 10:00 AM Crissy Goddard MA Active Patient Health Questionnaire-2 Score 0 08/26/2024 10:00 AM Crissy Goddard MA Active documented as of this encounter Plan of Treatment Upcoming Encounters Date Type Department Care Team (Late st Contact Info) Description 03/07/2025 9:30 AM CDT Appointment [facility] [address] Alban Stewart MD 3 [place] [address] 03/07/2025 11:[address] [place] [address] Alban Stewart MD 3 [place] [address] 03/07/2025 12:[address] [place] [address] Alban Stewart MD 3 [place] [address] 03/15/2025 3:00 PM CDT Office Visit [facility] Medical Group Multispecialty Care - [place] [address] [place] [address] Yazmin Goldberg, KATIUSKA [address] [place] [address] 03/17/2025 11:40 AM CDT Office Visit [facility] Mult[facility]pecialty Care - [facility] 3 [facility], [address] [place] [address] Alban Stewart MD 3 [place] [address] 04/14/2025 10:20 AM CDT [facility] - [place] [address] [address] [place] [address] Froilan Villeda MD [address] [place] [address] documented as of this encounter Visit Diagnoses Not on filedocumented in this encounter Additional Health Concerns Assessment Noted Time PHQ-9 Depression Total Score: 14 025 1:31 PM SCIENCE PROFESSOR documented as of this encounter Care Teams Senior Digital Designer Relationship Specialty Start Date End Date Froilan Villeda MD [address] [place] [address] PCP - General INTERNAL MEDICINE 01/26/23 documented as of this encounter
--- OUTSIDE RECORDS SUMMARY | 2025-02-27 12:44 | XMS_ITS | Encounter Summary ---
Author Organization [facility] Address [address] [place] [address] Care Team Providers Care Um Rn Name Role Phone Froilan Villeda MD Primary Care Provider [phone] Encounter Details Date Type Department Care Team (Late st Contact Info) Description 09/04/2024 Wunderlich Securitiest Message Enc [facility] Medical Group Orthopedic & Sports Medicine - [place] [address] [place], [place] [phone] Dallin Spencer PA [address] [place] [address] Ankle pain Social History Tobacco Use Types Packs/Day [...] Sex Assigned at Female 09/02/2023 11:01 AM CREATIVE PERFUMER Legal Sex Female 3:52 PM CDT Gender Identity Female 09/02/2023 11:01 AM CREATIVE PERFUMER Sexual Orientation Straight 09/02/2023 11 :01 AM CREATIVE PERFUMER documented as of this encounter Plan of Treatment Upcoming Encounters Date Type Department Care Team (Late st Contact Info) Description 03/07/2025 9:30 AM CDT Appointment [facility] [place] [address] Alban Stewart MD 3 [place] [address] 03/07/2025 11:[address] [place] [address] Alban Stewart MD 3 [place] [address] 03/07/2025 12:[address] [address] Alban Stewart MD 3 [place] [address] 03/15/2025 3:00 PM CDT Office Visit [facility] Medical Group Multispecialty Care - [place] [address] [place] [address] Yazmin Goldberg, AQUATIC LABORER [address] [place] [address] 03/17/2025 11:40 AM CDT Office Visit [facility] Medical Group Multispecialty Care - [place] [address] [place] [address] Alban Stewart MD [address] [place] [address] 04/14/2025 10:20 AM CDT Office Visit [facility] Medical Group Multispecialty Care - [place] [address] [address] [place] [address] Froilan Villeda MD [address] [place] [address] documented as of this encounter Visit Diagnoses Not on filedocumented in this encounter Additional Health Concerns Assessment Noted Time PHQ-9 Depression Total Score: 14 025 1:31 PM CREATIVE PERFUMER documented as of this encounter Care Teams Um Rn Relationship Specialty Start Date End Date Froilan Villeda MD [address] [place] [address] PCP - General INTERNAL MEDICINE 01/26/23 documented as of this encounter
--- OUTSIDE RECORDS SUMMARY | 2025-02-27 12:44 | XMS_ITS | Encounter Summary ---
Author Organization [facility] Address [address] [place] [address] Care Team Providers Care Chief Accountant Name Role Phone Froilan Villeda MD Primary Care Provider [phone] Encounter Details Date Type Department Care Team (Late Contact Info) Description 11/21/2024 MyChart Message Enc [facility] Medical Group Multispecialty Care - [place] [address] [address] [place], [place] [address] [place] [address] [place] [address] 157 [place] [address] Doctors letter Social History Tobacco Use Types Packs/Day Years [...] from your doctor or pharmacy? Never 11/08/2024 [facility] Utilities Answer Date Recorded In the past [...] week 11/08/2024 How often do you attend [facility] or advent services? Patient unable to answer 11/08/2024 Do you belong to any clubs o r organizations such as roman catholic groups, unions, fraternal or athletic groups, or [...] Recorded Patient Health Questionnaire-2 Score 6 11/08/2024 [facility] of Occupat ional Health - Occupational [...] any time in the past 12 m [facility], were you homeless or living in a usp (including now)? No 11/08/2024 Comments No Sex and Gender Information Value Date Recorded Sex Assigned at Female 09/02/2023 11:01 AM DISTANCE EDUCATION FACULTY LIAISON Legal Sex Female 3:52 PM CDT Gender Identity Female 09/02/2023 11:01 AM DISTANCE EDUCATION FACULTY LIAISON Sexual Orientation Straight 09/02/2023 11 :01 AM DISTANCE EDUCATION FACULTY LIAISON documented as of this encounter Plan of Treatment Upcoming Encounters Date Type Department Care Team (Late st Contact Info) Description 03/07/2025 9:[address] [facility] [place] [address] Alban Stewart MD 3 [place], [place] [address] 03/07/2025 11:[address] [place], [place] [address] Alban Stewart MD 3 [place] [address] 03/07/2025 12:[address] [place] [address] Alban Stewart MD 3 [facility] [place] [address] 03/15/2025 3:00 PM CDT Office Visit [facility] Multispecialty Care - [address] [place] [address] Yazmin Goldberg NP [address] [place] [address] [address] [place] [address] 03/17/2025 11:40 AM CDT Office Visit [facility]pecialty Care [facility], [address] [place] [address] Alban Stewart MD 3 [facility] [place] [address] 04/14/2025 10:20 AM CDT [facility] [address] [place] [address] [place] [address] [place] [address] documented as of this encounter Visit Diagnoses Not on filedocumented in this encounter Additional Health Concerns Assessment Noted Time PHQ-9 Depression Total Score: 14 025 1:31 PM DISTANCE EDUCATION FACULTY LIAISON documented as of this encounter Care Teams Chief Accountant Relationship Specialty Start Date End Date Froilan Villeda MD [address] [address] PCP - General INTERNAL MEDICINE 01/26/23 documented as of this encounter
--- OUTSIDE RECORDS SUMMARY | 2025-02-27 12:44 | XMS_ITS | Encounter Summary ---
Author Organization [facility] Address [address] [place] [address] Care Team Providers Care Net Developer Name Role Phone Froilan Villeda MD Primary Care Provider [phone] Encounter Details Date Type Department Care Team (Late Contact Info) Description 01/09/2025 MyChart Message Enc [facility] Medical Group Multispecialty Care - [place] [address] [address] [place], [place] [phone] [place] [address] [place] [address] 157 [place], [place] [id number] Appt 01/10 Social History Tobacco Use Types Packs/Day Years [...] your doctor or pharmacy? Never 11/08/2024 [facility] Utilities Answer Date Recorded In the [...] How often do you attend chur or caodaism services? Patient unable to answer 11/08/2024 Do you belong to any clubs o r organizations such as evangelical groups, unions, fraternal or athletic groups, or [...] Recorded Patient Health Questionnaire-2 Score 6 11/08/2024 [facility] [place] of Occupat ional Health - Occupational Stress [...] were you homeless or living in a longterm (including now)? No 11/08/2024 Comments No Sex and Gender Information Value Date Recorded Sex Assigned at Female 09/02/2023 11:01 AM BAND SAWMILL OPERATOR Legal Sex Female 3:52 PM CDT Gender Identity Female 09/02/2023 11:01 AM BAND SAWMILL OPERATOR Sexual Orientation Straight 09/02/2023 11 :01 AM BAND SAWMILL OPERATOR documented as of this encounter Functional Status * Calculated C-SSRS Risk Score (Lifetime/Recent) Answer Date of Assessment Author Status No Risk Indicated 01/12/2025 11:29 AM Cait Do RN Active * [place] Suicide Severity Rating Scale (Screener/Recent Self-Report) Question Answer Date of Assessment Author Status 1. Wish to be (Past 1 Month) No 01/12/2025 11:29 AM Rika Do RN A ctive 2. Non-Specific Active Suicidal Thoughts (Past 1 Month) No 01/12/2025 11:29 AM Rika Do RN A ctive 6. Suicidal Behavior (Lifetime) No 01/12/2025 11:29 AM Rika Do RN A ctive documented as of this encounter Plan of Treatment Upcoming Encounters Date Type Department Care Team (Late st Contact Info) Description 03/07/2025 9:[address] [facility] [place] [address] Alban Stewart MD [address] [place] [address] 03/07/2025 11:00 AM CDT Appointment [facility] [address] Alban Stewart MD [address] [place] [address] 03/07/2025 12:00 PM CDT Appointment [facility] [place] [address] Alban Stewart MD [address] [place] [address] 03/15/2025 3:00 PM CDT Office Visit [facility] Medical [facility] Multispecialty Care - [place] [address] [place] [address] Yazmin Goldberg NP [address] [place] [address] 03/17/2025 11:40 AM CDT Office Visit [facility] Care - [facility] [address] [place] [address] Alban Stewart MD [address] [place] [address] 04/14/2025 10:20 AM CDT Office Visit [facility] Medical Group Multispecialty Care - [place] [address] [address] [place] [address] Froilan Villeda MD [address] [place] [address] documented as of this encounter Visit Diagnoses Not on filedocumented in this encounter Additional Health Concerns Assessment Noted Time PHQ-9 Depression Total Score: 14 025 1:31 PM BAND SAWMILL OPERATOR documented as of this encounter Care Teams Net Developer Relationship Specialty Start Date End Date Froilan Villeda MD [address] [place] [address] PCP - General INTERNAL MEDICINE 01/26/23 documented as of this encounter
--- OUTSIDE RECORDS SUMMARY | 2025-02-27 12:44 | XMS_ITS | Encounter Summary ---
Author Organization [facility] - [facility] Address [address] [place] [address] Care Team Providers Care Insulation Board Coater Operator Name Role Phone Froilan Villeda MD Primary Care Provider [phone] Encounter Details Date Type Department Care Team (Late st Contact Info) Description 08/29/2024 MyChart Message Enc [facility] Medical Group Multispecialty Care - [facility] [address] [facility], [address] [place] [phone] Alban Stewart MD 3 [place] [address] ??? Test scheduled 09/07 Social History Tobacco Use Types Packs/Day Years [...] Sex Assigned at Female 09/02/2023 11:01 AM FAMILY LAW ATTORNEY Legal Sex Female 3:52 PM CDT Gender Identity Female 09/02/2023 11:01 AM FAMILY LAW ATTORNEY Sexual Orientation Straight 09/02/2023 11 :01 AM FAMILY LAW ATTORNEY documented as of this encounter Plan of Treatment Upcoming Encounters Date Type Department Care Team (Late st Contact Info) Description 03/07/2025 9:[address] [facility] [place] [address] Alban Stewart MD 3 [place] [address] 03/07/2025 11:[address] [facility] [place] [address] Alban Stewart MD 3 [place] [address] 03/07/2025 12:[address] [place] [address] Alban Stewart MD 3 [place] [address] 03/15/2025 3:00 PM CDT Office Visit [facility] Medical [facility] Multispecialty Care - [place] [address] [place] [address] Yazmin Goldberg, [address] [facility] [address] [place] [address] 03/17/2025 11:40 AM CDT Office Visit [facility] [address] [facility] [address] [place] [address] Alban Stewart MD 3 [place] [address] 04/14/2025 10:20 AM CDT Office Visit [facility] Medical Group Multispecialty Care - [place] [address] [address] [place] [address] Froilan Villeda MD [address] [place] [address] documented as of this encounter Visit Diagnoses Not on filedocumented in this encounter Additional Health Concerns Assessment Noted Time PHQ-9 Depression Total Score: 14 025 1:31 PM FAMILY LAW ATTORNEY documented as of this encounter Care Teams Insulation Board Coater Operator Relationship Specialty Start Date End Date Froilan Villeda MD [address] [place] [address] PCP - General INTERNAL MEDICINE 01/26/23 documented as of this encounter
--- OUTSIDE RECORDS SUMMARY | 2025-02-27 12:44 | XMS_ITS | Encounter Summary ---
Author Organization [facility] - [facility] Address [address] [place] [address] Care Team Providers Care Veneer Glue Spreader Name Role Phone Froilan Villeda MD Primary Care Provider [phone] Encounter Details Date Type Department Care Team (Late Contact Info) Description 11/14/2024 [facility] practice solutionst Message Enc [facility] Medical Group Orthopedic & Sports Medicine - [place] [address] [place], [place] [phone] Dallin Spencer PA [address] [place] [address] Ankle pain and swelling Social History Tobacco Use Types Packs/Day Years [...] Never 11/08/2024 [facility] Utilities Answer Date Recorded In the past [...] week 11/08/2024 How often do you attend [facility] or adventism services? Patient unable to answer 11/08/2024 Do you belong to any clubs o r organizations such as zoroastrian groups, unions, fraternal or athletic groups, or [...] Recorded Patient Health Questionnaire-2 Score 6 11/08/2024 [facility] of Occupat ional Health - Occupational Stress [...] any time in the past 12 [facility], were you homeless or living in a nursing home (including now)? No 11/08/2024 Comments No Sex and Gender Information Value Date Recorded Sex Assigned at Female 09/02/2023 11:01 AM FINANCIAL INSTITUTION TREASURER Legal Sex Female 3:52 PM CDT Gender Identity Female 09/02/2023 11:01 AM FINANCIAL INSTITUTION TREASURER Sexual Orientation Straight 09/02/2023 11 :01 AM FINANCIAL INSTITUTION TREASURER documented as of this encounter Plan of Treatment Upcoming Encounters Date Type Department Care Team (Late st Contact Info) Description 03/07/2025 9:[address] [facility] [address] Alban Stewart MD 3 [place], [place] [address] 03/07/2025 11:[address] [facility] [place], [place] [address] Alban Stewart MD [address] [place] [address] 03/07/2025 12:[address] [address] Alban Stewart MD 3 [facility] [place] [address] 03/15/2025 3:00 PM CDT Office Visit [facility] Multispecialty Care - [address] [place] [address] Yazmin Goldberg NP [address] [place] [address] [address] [place] [address] 03/17/2025 11:40 AM CDT Office Visit [facility] [address] [place] [address] Alban Stewart MD 3 [facility] [place] [address] 04/14/2025 10:20 AM CDT [facility] [address] [place] [address] Froilan Villeda MD [address] [place] [address] 157 [place] [address] documented as of this encounter Visit Diagnoses Not on filedocumented in this encounter Additional Health Concerns Assessment Noted Time PHQ-9 Depression Total Score: 14 025 1:31 PM FINANCIAL INSTITUTION TREASURER documented as of this encounter Care Teams Veneer Glue Spreader Relationship Specialty Start Date End Date Froilan Villeda MD [address] [address] PCP - General INTERNAL MEDICINE 01/26/23 documented as of this encounter
--- OUTSIDE RECORDS SUMMARY | 2025-02-27 12:46 | XMS_ITS | Encounter Summary ---
Author Organization [facility] Address [address] [place] [address] Care Team Providers Care Public Works Laborer Name Role Phone Froilan iVlleda MD Primary Care Provider [phone] Encounter Details Date Type Department Care Team (Late st Contact Info) Description 07/24/2024 IRL Gamingt Message Enc [facility] Medical Group Multispecialty Care - [place] [address] [facility] [address] [place], [place] [phone] Yazmin Goldberg, DIRECTOR OF EARLY CHILDHOOD [address] [facility] [address] [place], [place] [phone] Fever, fix ankle Social History Tobacco Use Types Packs/Day Years Used Date Smoking Tobacco: Never Passive Smoke Exposure: Never Smokeless Tobacco: Never Comments:Counseled by Dr. Nona shin. Alcohol Use Standard Drinks/Week Comments Yes 20 (1 standard drink = 0.6 oz pu re alcohol) PHQ-2 Answer Date Recorded Patient Health Questionnaire-2 Score 5 04/11/2024 Comments No Sex and Gender Information Value Date Recorded Sex Assigned at Female 09/02/2023 11:01 AM SOLID WASTE DISPOSAL MANAGER Legal Sex Female 3:52 PM CDT Gender Identity Female 09/02/2023 11:01 AM SOLID WASTE DISPOSAL MANAGER Sexual Orientation Straight 09/02/2023 11 :01 AM SOLID WASTE DISPOSAL MANAGER documented as of this encounter Plan of Treatment Upcoming Encounters Date Type Department Care Team (Late st Contact Info) Description 03/07/2025 9:[address] [facility] [place] [address] Alban Stewart MD 3 [place] [address] 03/07/2025 11:[address] [facility] [place] [place] [address] Alban Stewart MD 3 [place] [address] 03/07/2025 12:[address] [place] [address] Alban Stewart MD 3 [place] [address] 03/15/2025 3:00 PM CDT Office Visit [facility] Medical Group Multispecialty Care - [place] [address] [place] [address] Yazmin Goldberg, [address] [place] [address] 03/17/2025 11:40 AM CDT Office Visit [facility] [address] [place] [address] Alban Stewart MD [address] [place] [address] 04/14/2025 10:20 AM CDT Office Visit [facility] Medical Group Multispecialty Care - [place] [address] [address] [place] [address] Froilan Villeda MD [address] [place] [address] documented as of this encounter Visit Diagnoses Not on filedocumented in this encounter Additional Health Concerns Assessment Noted Time PHQ-9 Depression Total Score: 19 04/11/ 024 4:23 PM CDT documented as of this encounter Care Teams Public Works Laborer Relationship Specialty Start Date End Date Froilan Villeda MD [address] [place] [address] PCP - General INTERNAL MEDICINE 01/26/23 documented as of this encounter
--- OUTSIDE RECORDS SUMMARY | 2025-02-27 12:46 | XMS_ITS | Encounter Summary ---
Author Organization [facility] - [facility] Address [address] [place] [address] Care Team Providers Care Domain Architect Name Role Phone Froilan Villeda MD Primary Care Provider [phone] Encounter Details Date Type Department Care Team (Latest Contact Info) Description 05/31/2024 Syndevrxt Message Enc [facility] Medical Group Multispecialty Care - [address] [place], [place] [phone] [place] [address] [place] [address] 157 [place] [address] ultrasound of liver Social History Tobacco Use Types Packs/Day Years Used Date Smoking Tobacco: Never Passive Smoke Exposure: Never Smokeless Tobacco: Never Comments:Counseled by Dr. Nona hsin. Alcohol Use Standard Drinks/Week Comments Yes 20 (1 standard drink = 0.6 oz pu re alcohol) PHQ-2 Answer Date Recorded Patient Health Questionnaire-2 Score 5 04/11/2024 Comments No Sex and Gender Information Value Date Recorded Sex Assigned at Female 09/02/2023 11:01 AM CHECK CASHIER Legal Sex Female 3:52 PM CDT Gender Identity Female 09/02/2023 11:01 AM CHECK CASHIER Sexual Orientation Straight 09/02/2023 11 :01 AM CHECK CASHIER documented as of this encounter Functional Status * Calculated C-SSRS Risk Score (Lifetime/Recent) Answer Date of Assessment Author Status No Risk Indicated 06/02/2024 2:16 PM Bernice Padilla, [place] Active * [place] Suicide Severity Rating Scale (Screener/Recent Self-Report) Question Answer Date of Assessment Author Status 1. Wish to be (Past 1 Month) No 06/02/2024 2:16 PM Bernice Padilla, [place] Activ e 2. Non-Specific Active Suicidal Thoughts (Past 1 Month) No 06/02/2024 2:16 PM Bernice Padilla, [place] Activ e 6. Suicidal Behavior (Lifetime) No 06/02/2024 2:16 PM Bernice Padilla, [place] Activ e documented as of this encounter Plan of Treatment Upcoming Encounters Date Type Department Care Team (Late st Contact Info) Description 03/07/2025 9:[address] [facility] [place] [address] Alban Stewart MD [address] [place] [address] 03/07/2025 11:[address] [facility] [place] [place] [address] Alban Stewart MD 3 [place] [address] 03/07/2025 12:[address] [place] [address] Alban Stewart MD [address] [place] [address] 03/15/2025 3:00 PM CDT Office Visit [facility] Medical Group Multispecialty Care - [address] [place] [address] AshlynYazmin lomax NP [address] [facility] [address] [place] [address] 03/17/2025 11:40 AM CDT Office Visit [facility] Medical Group Multispecialty Care - [facility] [address] [facility], [address] [place] [address] Alban Stewart MD 3 [facility] [place] [address] 04/14/2025 10:20 AM CDT Office Visit [facility] [place] [facility] [place] [address] [facility] [address] [place] [address] Froilan Villeda MD [address] [facility] [address] [place] [address] documented as of this encounter Visit Diagnoses Not on filedocumented in this encounter Additional Health Concerns Assessment Noted Time PHQ-9 Depression Total Score: 19 024 4:23 PM CDT documented as of this encounter Care Teams Domain Architect Relationship Specialty Start Date End Date Froilan Villeda MD [address] [facility] [address] [place] [address] PCP - General INTERNAL MEDICINE 01/26/23 documented as of this encounter
--- OUTSIDE RECORDS SUMMARY | 2025-02-27 12:46 | XMS_ITS | Encounter Summary ---
Author Organization [facility] Address [address] [place] [address] Care Team Providers Care Coffee Roaster Helper Name Role Phone Froilan Villeda MD Primary Care Provider [phone] Encounter Details Date Type Department Care Team (Latest Contact Info) Description 07/29/2024 Shunra Software Message Enc [facility] Medical Group Multispecialty Care - [place] [address] [facility] [address] [place], [place] [phone] Yazmin Goldberg, MEDICAL ADMINISTRATIVE SPECIALIST [address] [facility] [address] [place] [address] Gildardo short term paperwork Social History Tobacco Use Types Packs/Day [...] Sex Assigned at Female 09/02/2023 11:01 AM LUNCH COOK Legal Sex Female 3:52 PM CDT Gender Identity Female 09/02/2023 11:01 AM LUNCH COOK Sexual Orientation Straight 09/02/2023 11 :01 AM LUNCH COOK documented as of this encounter Plan of Treatment Upcoming Encounters Date Type Department Care Team (Late st Contact Info) Description 03/07/2025 9:[address] [facility] [place] [address] Alban Stewart MD 3 [place] [address] 03/07/2025 11:[address] [facility] [place] [place] [address] Alban Stewart MD 3 [place] [address] 03/07/2025 12:[address] [place] [address] Alban Stewart MD 3 [place] [address] 03/15/2025 3:00 PM CDT Office Visit [facility] Medical Group Multispecialty Care - [place] [address] [facility] [address] [place] [address] Yazmin Goldberg, MEDICAL ADMINISTRATIVE SPECIALIST [address] [facility] [address] [place] [address] 03/17/2025 11:40 AM CDT Office Visit [facility] Medical Group Multispecialty Care - [place] [address] [place] [address] Alban Stewart MD 3 [place] [address] 04/14/2025 10:20 AM CDT Office Visit [facility] Medical Group Multispecialty Care - [place] [address] [address] [place] [address] Froilan Villeda MD [address] [place] [address] documented as of this encounter Visit Diagnoses Not on filedocumented in this encounter Additional Health Concerns Assessment Noted Time PHQ-9 Depression Total Score: 19 04/11/ 024 4:23 PM CDT documented as of this encounter Care Teams Coffee Roaster Helper Relationship Specialty Start Date End Date Froilan Villeda MD [address] [place] [address] PCP - General INTERNAL MEDICINE 01/26/23 documented as of this encounter
--- OUTSIDE RECORDS SUMMARY | 2025-02-27 12:46 | XMS_ITS | Encounter Summary ---
Author Organization [facility] Address [address] [place] [address] Care Team Providers Care Manager Data Warehouse Name Role Phone Froilan Villeda MD Primary Care Provider [phone] Encounter Details Date Type Department Care Team (Latest Contact Info) Description 11/06/2023 MyChart Message Enc [facility] Medical Group Multispecialty Care - [address] [place], [place] [phone] Froilan Villeda MD [address] [facility] [address] [place], [place] [phone] [facility] Disability/Leave form due 11/09/23 Social History Tobacco Use Types Packs/Day Years Used Date Smoking Tobacco: Never Passive Smoke Exposure: Never Smokeless Tobacco: Never Comments:Counseled by Dr. Nona shin. Alcohol Use Standard Drinks/Week Comments Yes 20 (1 standard drink = 0.6 oz pu re alcohol) PHQ-2 Answer Date Recorded Patient Health Questionnaire-2 Score 3 09/23/2023 Comments No Sex and Gender Information Value Date Recorded Sex Assigned at Female 09/02/2023 11:01 AM CHIEF OPERATOR LOCK TENDER Legal Sex Female 3:52 PM CDT Gender Identity Female 09/02/2023 11:01 AM CHIEF OPERATOR LOCK TENDER Sexual Orientation Straight 09/02/2023 11 :01 AM CHIEF OPERATOR LOCK TENDER documented as of this encounter Plan of Treatment Upcoming Encounters Date Type Department Care Team (Late st Contact Info) Description 03/07/2025 9:[address] [facility] [place] [address] lAban Stewart MD [address] [place] [address] 03/07/2025 11:[address] [place] [address] Alban Stewart MD [address] [place] [address] 03/07/2025 12:[address] [place] [address] Alban Stewart MD [address] [place] [address] 03/15/2025 3:00 PM CDT Office Visit [facility] Medical Group Multispecialty Care - [place] [address] [facility] [address] [place] [address] Yazmin Goldberg, BUCKLE ATTACHER [address] [facility] [address] [place] [address] 03/17/2025 11:40 AM CDT Office Visit [facility] Medical Group Multispecialty Care - [place] [address] [place] [address] Alban Stewart MD [address] [place] [address] 04/14/2025 10:20 AM CDT Office Visit [facility] Medical Group Multispecialty Care - [place] [address] [address] [place] [address] Froilan Villeda MD [facility] [address] [address] documented as of this encounter Visit Diagnoses Not on filedocumented in this encounter Additional Health Concerns Assessment Noted Time PHQ-9 Depression Total Score: 7 09/23/19 24 2:09 PM CDT documented as of this encounter Care Teams Manager Data Warehouse Relationship Specialty Start Date End Date Froilan Villeda MD [address] [place] [address] PCP - General INTERNAL MEDICINE 01/26/23 documented as of this encounter
--- OUTSIDE RECORDS SUMMARY | 2025-02-27 12:46 | XMS_ITS | Encounter Summary ---
Author Organization [facility] - [facility] Address [address] [place] [address] Care Team Providers Care Vegetable Washer Name Role Phone Froilan Villeda MD Primary Care Provider [phone] Encounter Details Date Type Department Care Team (Late st Contact Info) Description 07/15/2024 MDC Mediahart Message Enc [facility] - [place] [address] [facility] [address] [place], [place] [id number] Yazmin Goldberg, HOME VISIT FIELD CARE MANAGER [address] [facility] [address] [place] [address] referral to ortho Social History Tobacco Use Types Packs/Day Years [...] Sex Assigned at Female 09/02/2023 11:01 AM AUTO DEALER Legal Sex Female 3:52 PM CDT Gender Identity Female 09/02/2023 11:01 AM AUTO DEALER Sexual Orientation Straight 09/02/2023 11 :01 AM AUTO DEALER documented as of this encounter Plan of Treatment Upcoming Encounters Date Type Department Care Team (Late st Contact Info) Description 03/07/2025 9:[address] [place] [address] Alban Stewart MD [address] [place] [address] 03/07/2025 11:[address] [facility] [place] [address] Alban Stewart MD [address] [place] [address] 03/07/2025 12:[address] [place] [address] Alban Stewart MD [address] [place] [address] 03/15/2025 3:00 PM CDT Office Visit [facility] - [place] [address] [place] [address] Yazmin Goldberg, [address] [place] [address] 03/17/2025 11:40 AM CDT Office Visit [facility] [address] [place] [address] Alban Stewart MD [address] [place] [address] 04/14/2025 10:20 AM CDT Office Visit [facility]ty Care - [place] [address] [address] [place] [address] Froilan Villeda MD [address] [place] [address] documented as of this encounter Visit Diagnoses Not on filedocumented in this encounter Additional Health Concerns Assessment Noted Time PHQ-9 Depression Total Score: 19 04/11/ 024 4:23 PM CDT documented as of this encounter Care Teams Vegetable Washer Relationship Specialty Start Date End Date Froilan Villeda MD [address] [place] [address] PCP - General INTERNAL MEDICINE 01/26/23 documented as of this encounter
--- OUTSIDE RECORDS SUMMARY | 2025-02-27 12:46 | XMS_ITS | Clinical Summary ---
Author Organization [facility] Address [address] [place] [address] Care Team Providers Care Tile Trimmer Name Role Phone Froilan Villeda MD Unavailable Froilan Villeda MD Primary Care Provider [phone] Source Comments [facility],non-owned Affiliates and Associated Physician Practices is amultiple site organization consisting of ambulatory clinics and hospital sitesin [place], [place], [place] and [place]. This disclosure is being madepursuant to the Care Everywhere program and may not contain all information available regarding this patient. Last updated 18.[facility] Allergies Active Allergy Reactions Criticality Noted Date Comments Codeine Nausea and/or Vomiting 06/23/2016 Contrast-Iodinated Agents For Ct/Other Urticaria,Itching Medium 04/30/2016 Lisinopril-Hydrochl orothiazide Rash Medium 04/05/2021 Tree Nuts Anaphylaxis High 06/23/2016 Also allergic to PECANS Medications * Be aware that medications may not be up to date on this document. Alwaysverify current medications with the patient. magnesium oxide (MAG-OX) 400 MG tablet Take 1 (one) tablet by mouth once daily 5 Active ALPRAZolam (XANAX) 0.25 MG tabletIndicatio ns:Moderate episode of recurrent major depressive disorder (HCC),Generaliz ed anxiety disorder Take 1 tablet by mouth once daily as needed for Anxiety 30 tablet 8 Active DULoxetine (Cymbalta) 60 MG capsule Take 1 (one) capsule by mouth once daily 2 Active buPROPion XL 24hr (Wellbutrin-XL) 150 MG tablet TAKE 1 TABLET BY MOUTH IN THE MORNING 2 Active albuterol HFA (Proventil; Ventolin; Proair) 108 (90 Base) MCG/ACT inhaler Inhale 2 (two) puffs by mouth every 6 hours as needed 3 Active clobetasol (Temovate) 0.05 % solutionIndicat ions:Sebopsoria sis Apply to scalp once to twice daily as needed until affected area clears. For psoriasis. 30 days supply. 50 mL 11 4 Active ketoconazole (Nizoral) 2 % shampooIndicati ons:Sebopsorias is Apply to wet hair, leave on for 3 minutes, then rinse; three times weekly until affected area resolves. 30 days supply 120 mL 11 4 Active clindamycin (Cleocin T) 1 % solutionIndicat ions:Folliculit is Apply to affected area 2 times daily . For bumps on scalps 60 mL 2 4 Active EPINEPHrine (Epipen) 0.3 MG/0.3ML auto-injector pen Inject 0.3 mL into muscle as needed 4 Active methocarbamol (Robaxin) 750 MG tablet Take 1 (one) tablet by mouth 3 times daily as needed 4 Active methylphenidate ER 24hr (Ritalin La) 10 MG capsule Take 1 (one) capsule by mouth every morning 5 Active metoprolol succinate XL 24hr (Toprol XL) 50 MG tablet Take 1 (one) tablet by mouth once daily 4 Active naloxone HCl (Narcan) 4 MG/0.1ML nasal spray 4 Active HYDROcodone-jameson taminophen (Mccrory) 10-325 MG tablet 5 Active gabapentin (Neurontin) 100 MG capsule 5 Active losartan-hydroC HLOROthiazide (Hyzaar) 100-12.5 MG tablet Take 1 (one) tablet by mouth once daily 5 Active tacrolimus (Protopic) 0.1 % ointmentIndicat ions:Psoriasis Apply to face and body two times daily. 30 days supply. 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 monitor Carpal tunnel syndrome of left wrist 04/30/2016 Overview (04/30/2016): Get records from prior ortho. Consider referral to ortho to address Migraine without aura and wi th status migrainosus, not intractable 08/04/2013 Essential (primary) hypertension 05/08/2011 Generalized anxiety disorder 05/08/2011 Moderate episode of recurrent major depressive d isorder 05/08/2011 Encounters Date Type Department Care Team Description 02/03/2025 Refill [facility] - Dermatology [address] [place] [phone] Sharri Metzger MD MEDICATION REFILL 12/16/2024 10:40 AM CDT Office Visit [facility] - Dermatology [address] [place] [phone] Sharri Metzger MD Sebopsoriasis (Primary Dx); Folliculitis 12/16/2024 Travel from Last 3 Months Immunizations Immunization Administration Dates Next Due FLU VACCINE QUAD IIV4 SPLIT 0.25 ML IM 5 INFLUENZA VACCINE 04/21/2016 TD (AGE 9-ADULT) 12/11/2001 Family History Medical History Relation Name Comments Cancer Father skin cancer Heart Surgery Father Hypertension Father Hearing Problems Maternal Grandfather Hearing Problems Maternal Grandmother Hypertension Mother Relation Name Status Comments Father Alive Maternal Grandfather Maternal Grandmother Mother Alive Social History Tobacco Use Types Packs/Day Years Used Date Smoking Tobacco: Never Smokeless Tobacco: Never Alcohol Use Standard Drinks/Week Comments Yes 14 (1 standard drink = 0.6 oz pu re alcohol) 2 glasses wine nightly PHQ-2 Answer Date Recorded Patient Health Questionnaire-2 Score 3 10/26/2024 Comments No Sex and Gender Information Value Date Recorded Sex Assigned at Female 05/02/2022 10:59 AM CDT Legal Sex Female 7:30 PM CDT Gender Identity Female 05/02/2022 10:59 AM CDT Sexual Orientation Straight 05/02/2022 10 :59 AM CDT 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 file Not on file Not on file Last Filed Vital Signs Vital Sign Reading Time Taken Comments Blood Pressure 120/74 12/02/2017 10:56 AM CDT Pulse 88 12/02/2017 10:56 AM CDT Temperature 37.3 C (99.2 F) 12/02/2017 10:56 AM CDT Respiratory Rate 18 12/02/2017 10:56 AM CDT Oxygen Saturation 97% 01/12/2017 1:30 PM CDT Inhaled Oxygen Concentration - - Weight 83.7 kg (184 lb 9.6 oz) 12/02/2017 10:56 AM CDT Height 167.6 cm (5' 6) 12/02/2017 10:56 AM CDT Body Mass Index 29.8 12/02/2017 10:56 AM CDT Plan of Treatment Upcoming Encounters Date Type Department Care Team (Late st Contact Info) Description 06/16/2025 9:30 AM BLOWER BLAST FURNACE Office Visit [facility] - Dermatology [address] [place] [address], [place] [phone] Sharri Metzger MD [address] [place] [address] [address] [place] [address] Health Maintenance Due Date Last Done Comments COLOGUARD (AGES 45-75) - COLON CA SCREENING 1967 COLON MONITORING 1967 COLONOSCOPY - COLON CA SCREENING 1967 CT COLONOGRAPHY - COLON CA SCREENING 1967 Colorectal Cancer Screening 1967 FIT - COLON CA SCREENING 1967 FLEX SIG - COLON CA SCREENING 1967 HIV SCREENING 11/16/1982 HEPATITIS B VACCINE (1 of 3 - 19+ 3-dose series) 11/16/1986 DTAP/TDAP/TD VACCINES (2 - Td or Tdap) 12/12/2011 12/11/2001 PNEUMOCOCCAL VACCINE 50+ (1 of 1 - PCV) 11/16/2017 ZOSTER VACCINE (1 of 2) 11/16/2017 MAMMOGRAM 10/31/2022 10/31/2020, 08/14, 09/02/2019, Additional history exists COVID-19 VACCINE ( season) 2024 06/02/2021, 07/20/2020, 06/29/2020 INFLUENZA VACCINE (#1) 2025 , 04/30/2023, 05/13/2022, Additional history exists PAP SMEAR 10/22/2026 10/23/2023, 10/23/2023 LIPID TESTING 11/19/2028 11/20/2023, 02/26/2017 HEPATITIS C SCREENING Completed 11/20/2023 DEPRESSION SCREENING Completed 10/26/2024 HIB VACCINE Aged Out No longer eligi ble based on patient's age to complete this topic HPV VACCINE Aged Out No longer eligi ble based on patient's age to complete this topic MENINGOCOCCAL (Group B) VACCINE SHARED DECISION-MAKING Aged Out No longer eligible based on patient's age to complete this topic MENINGOCOCCAL GROUPS A/C/Y/W VACCINE Aged Out No longer eligible based on patient's age to complete this topic Goals Goal Patient Goal Type Associated Problems Recent Progress Patient-Stated? Author Blood Pressure < 140/90 Blood Pressure 120/74(12/02 10:56 AM CDT) Gurpreet Patel Note: Caring for Your High Blood Pressure Healthy Lifestyle tips Manage stress: Stress may slow healing and cause illness later. Since it is hard to avoid stress, learn to control it. Learn new ways to relax. Ask your provider for more information on ways to relax. Talk to someone about things that upset you. Stop smoking: If you smoke, you should quit. Smoking harms the heart, lungs, and blood. You are more likely to have a heart attack, lung disease, and cancer if you smoke. Smoking can also make your hypertension worse. It is never too late to quit. Quitting smoking improves your health, and the health of those around you. If you have trouble quitting, talk to your provider about ways to quit. Drinking alcohol: If you drink alcohol, limit how much you drink. Do not drink more than two drinks a day. One drink is a can of beer (12 ounces) or four ounces (one-half cup) of wine. It is also the same as one jigger (one and one-half ounces) of hard liquor, such as whiskey. Maintain a healthy weight. Weighing to much can make your heart work harder and cause high blood pressure. Other health problems are caused about weighing too much. Talk to your provider about an ideal weight for you. Where can I go for more information? [place] [employer] Association National Center: http://www.americanheart.org 1. In the top header, click C onditions . 2. In the top header, click h igh blood pressure. 3. For a printable blood pressure tracker, scroll toward the bottom of the page to Related Tools, and click H BP Trackers. 3-294-GNQ-USA-1 or ( ) National Heart, Lung and Blood El Portal: http://www.nhlbi.nih.gov/health/infoctr/index.htm Blood Pressure < 140/90 Blood Pressure 120/74(12/02 10:56 AM CDT) Gurpreet Patel Note: Caring for Your High Blood Pressure Exercise Exercising makes the heart stronger, lowers blood pressure, and keeps you healthy. Check with your provider before starting an exercise program. When starting a physical activity program, begin slowly to avoid injury. Even doing 5 to 10 minutes can be beneficial. Add a few minutes each week till you reach your goal. Choose an activity that fits your fitness level and interests, one that you can do on a regular basis. Exercise activities like running, using weights, going to the gym are one type of physical activity, but day to day activities such as walking, stairs, cutting grass, gardening, and riding a bike or vacuuming are also physical activities. IT ALL COUNTS!!!! Where can I go for more information? [place] Heart Association National Center: http://www.americanheart.org 1. In the top header, click C onditions . 2. In the top header, click h igh blood pressure. 3. For a printable blood pressure tracker, scroll toward the bottom of the page to Related Tools, and click H BP Trackers. 7-869-PBK-USA-1 or ( ) National Heart, Lung and Blood El Portal: http://www.nhlbi.nih.gov/health/infoctr/index.htm Exercise 5X per week (30 min per time) Exercise Gurpreet Patel Note: The [place] College [employer] recommends all adults get a minimum of 150 minutes of moderate physical activity a week. This can be completed as 30 minutes of brisk walking on most days of the week. Even 10 minutes of exercise a day can provide benefit and will add up over the week. If able, try to take the stairs instead of the elevator or park farther away in the parking lot. Start slow and try to increase your amount of activity over several weeks. Exercise will help to improve your cholesterol readings and blood pressure and to be overall healthier. Procedures Procedure Name Priority Date/Time Associated Diagnosis Comments MAMMOGRAPHY ORDER Routine 09/16/2017 LIPID PROFILE Routine 02/26/2017 10:13 AM CDT Generalized anxiety disorder from Last 3 Months or Most Recently Relevant to Health Maintenance Results * MAMMOGRAPHY ORDER (09/16/2017) Anatomical Region Laterality Modality Mammography us Scanned Document MAMMO ORDERABLES Final Result * (ABNORMAL) LIPID PROFILE (02/26/2017 10:13 AM CDT) Cholesterol 200(H) 100 - 199 mg/dL [facility] ACCOUNT BILL Triglycerides 72 0 - 149 mg/dL [facility] ACCOUNT BILL HDL Cholesterol 76 >39 mg/dL [facility] ACCOUNT BILL VLDL Calculated 14 5 - 40 mg/dL [facility] ACCOUNT BILL LDL Calculated 110(H) 0 - 99 mg/dL [facility] ACCOUNT BILL Comment NOT NEEDED [facility] ACCOUNT BILL Comment: FASTING Ancillary determined the test is not needed Blood BLOOD SPECIMEN / Unknown 02/26/2017 10:13 AM CDT 02/26/2017 Narrative [facility] ACCOUNT BILL - 02/27/2017 10:13 AM CDT A courtesy copy of this report has been sent to [facility] Resulting Agency Comment [facility] [address] [facility] [id number] us Radha Brewer MD LAB - CHEMISTRY ORDERABLES Fin al Result [facility] ACCOUNT BILL [address] [place] [address] from Last 3 Months or Most Recently Relevant to Health Maintenance Insurance [facility] Care Teams Tile Trimmer Relationship Specialty Start Date End Date Friolan Villeda MD [facility] [address] [place] [address] PCP - Attributed-[facility] 09/11/23 Froilan Villeda MD [address] [facility] [address] [place] [address] PCP - General Internal Medicine 02/12/24
--- OUTSIDE RECORDS SUMMARY | 2025-02-27 12:46 | XMS_ITS | Encounter Summary ---
Author Organization [facility] - [facility] Address [address] [place] [address] Care Team Providers Care Prevocational/Rehabilitation Counselor Name Role Phone Froilan Villeda MD Primary Care Provider [phone] Encounter Details Date Type Department Care Team (Latest Contact Info) Description 07/24/2024 MyChart Message Enc [facility] Multispecialty Care - [address] [place], [place] [phone] Froilan Villeda MD [address] [facility] [address] [place], [place] [phone] Fever, fracture ankle Social History Tobacco Use Types Packs/Day [...] Sex Assigned at Female 09/02/2023 11:01 AM GUIDE SETTER Legal Sex Female 3:52 PM CDT Gender Identity Female 09/02/2023 11:01 AM GUIDE SETTER Sexual Orientation Straight 09/02/2023 11 :01 AM GUIDE SETTER documented as of this encounter Plan of Treatment Upcoming Encounters Date Type Department Care Team (Late st Contact Info) Description 03/07/2025 9:[address] [place] [address] Alban Stewart MD [address] [place] [address] 03/07/2025 11:[address] [place] [place] [address] Alban Stewart MD [address] [place] [address] 03/07/2025 12:[address] [address] Alban Stewart MD [address] [place] [address] 03/15/2025 3:00 PM CDT Office Visit [facility] Mult[facility]pecialty Care - [place] [address] [place] [address] Yazmin Goldberg, [address] [place] [address] 03/17/2025 11:40 AM CDT Office Visit [facility] [address] [place] [phone] Alban Stewart MD [address] [place] [address] 04/14/2025 10:20 AM CDT Office Visit [facility] Multispecialty Care - [place] [address] [address] [place] [address] Froilan Villeda MD [address] [place] [address] documented as of this encounter Visit Diagnoses Not on filedocumented in this encounter Additional Health Concerns Assessment Noted Time PHQ-9 Depression Total Score: 19 024 4:23 PM CDT documented as of this encounter Care Teams Prevocational/Rehabilitation Counselor Relationship Specialty Start Date End Date Froilan Villeda MD [address] [place] [address] PCP - General INTERNAL MEDICINE 01/26/23 documented as of this encounter
--- OUTSIDE RECORDS SUMMARY | 2025-02-27 12:46 | XMS_ITS | Encounter Summary ---
Author Organization [facility] - [facility] Address [address] [place] [address] Care Team Providers Care Jig Boring Machine Operator For Metal Name Role Phone Froilan Villeda MD Primary Care Provider [phone] Encounter Details Date Type Department Care Team (Latest Contact Info) Description 06/27/[address] [facility] Multispecialty Care - [address] [place], [place] [phone] Froilan Villeda MD [address] [facility] [address] [place], [place] [phone] allergic reaction Social History Tobacco Use Types Packs/Day Years [...] Sex Assigned at Female 09/02/2023 11:01 AM PERINATAL COORDINATOR Legal Sex Female 3:52 PM CDT Gender Identity Female 09/02/2023 11:01 AM PERINATAL COORDINATOR Sexual Orientation Straight 09/02/2023 11 :01 AM PERINATAL COORDINATOR documented as of this encounter Functional Status * Calculated C-SSRS Risk Score (Lifetime/Recent) Answer Date of Assessment Author Status No Risk Indicated 06/29/2024 9:50 AM Debby Montaño RN Active * Evangeline Suicide Severity Rating Scale (Screener/Recent Self-Report) Question Answer Date of Assessment Author Status 1. Wish to be (Past 1 Month) No 06/29/2024 9:50 AM Rika Montaño RN Ac tive 2. Non-Specific Active Suicidal Thoughts (Past 1 Month) No 06/29/2024 9:50 AM Rika Montaño RN Ac tive 6. Suicidal Behavior (Lifetime) No 06/29/2024 9:50 AM Rika Montaño RN Ac tive documented as of this encounter Plan of Treatment Upcoming Encounters Date Type Department Care Team (Late st Contact Info) Description 03/07/2025 9:[address] [facility] [place] [address] Alban Stewart MD [address] [place] [address] 03/07/2025 11:[address] [place] [address] Alban Stewart MD [address] [place] [address] 03/07/2025 12:[address] [place] [address] lAban Stewart MD [address] [place] [address] 03/15/2025 3:00 PM CDT Office Visit [facility] Multispecialty Care - [address] [place] [address] Yazmin Goldberg NP [address] [facility] [address] [place] [address] 03/17/2025 11:40 AM CDT Office Visit [facility] Medical [facility] Mult[facility]pecialty Care - [facility] [address] [facility], [address] [place] [address] Alban Stewart MD [address] [place] [address] 04/14/2025 10:20 AM CDT [facility] [place] [address] [facility] [address] [place] [address] Froilan Villeda MD [address] [facility] [address] [place] [address] documented as of this encounter Visit Diagnoses Not on filedocumented in this encounter Additional Health Concerns Assessment Noted Time PHQ-9 Depression Total Score: 19 024 4:23 PM CDT documented as of this encounter Care Teams Jig Boring Machine Operator For Metal Relationship Specialty Start Date End Date Froilan Villeda MD [address] [facility] [address] [place] [address] PCP - General INTERNAL MEDICINE 01/26/23 documented as of this encounter
--- OUTSIDE RECORDS SUMMARY | 2025-02-27 12:46 | XMS_ITS | Encounter Summary ---
Author Organization [facility] - [facility] Address [address] [place] [address] Care Team Providers Care Prospect Manager Name Role Phone Froilan Villeda MD Primary Care Provider [phone] Encounter Details Date Type Department Care Team (Latest Contact Info) Description 05/31/2024 Jaba Technologiest Message Enc [facility] Medical Group Multispecialty Care - [address] [place], [place] [id number] [place] [address] [place] [address] [address] [place] [address] referral pulmonary Social History Tobacco Use Types Packs/Day Years [...] Sex Assigned at Female 09/02/2023 11:01 AM PRODUCTION LINE WELDER Legal Sex Female 3:52 PM CDT Gender Identity Female 09/02/2023 11:01 AM PRODUCTION LINE WELDER Sexual Orientation Straight 09/02/2023 11 :01 AM PRODUCTION LINE WELDER documented as of this encounter Functional Status * Calculated C-SSRS Risk Score (Lifetime/Recent) Answer Date of Assessment Author Status No Risk Indicated 06/02/2024 2:16 PM Bernice Padilla, [place] Active * [place] Suicide Severity Rating Scale (Screener/Recent Self-Report) Question [...] CDT [facility]ointment [facility] [place] [address] Alban Stewart MD 3 [place] [address] 03/07/2025 11:[address] [place] [place] [address] Alban Stewart MD [address] [place] [address] 03/07/2025 12:[address] [place] [address] Alban Stewart MD 3 [place] [address] 03/15/2025 3:00 PM CDT Office Visit [facility] Medical Group Multispecialty Care - [place] [address] [place] [address] Yazmin Goldberg, NURSE PRACTICAL [address] [facility] [address] [place] [address] 03/17/2025 11:40 AM CDT Office Visit [facility] Medical Group Multispecialty Care - [facility] [address] [facility], [address] [place] [address] Alban Stewart MD 3 [place] [address] 04/14/2025 10:20 AM CDT Office Visit [facility] Medical [facility] [address] [place] [address] Froilan Villeda MD [address] [facility] [address] [place] [address] documented as of this encounter Visit Diagnoses Not on filedocumented in this encounter Additional Health Concerns Assessment Noted Time PHQ-9 Depression Total Score: 19 024 4:23 PM CDT documented as of this encounter Care Teams Prospect Manager Relationship Specialty Start Date End Date Froilan Villeda MD [address] [facility] [address] [place] [address] PCP - General INTERNAL MEDICINE 01/26/23 documented as of this encounter
--- OUTSIDE RECORDS SUMMARY | 2025-02-27 12:46 | XMS_ITS | Encounter Summary ---
Author Organization [facility] Address [address] [place] [address] Care Team Providers Care Door Installer Name Role Phone Froilan Villeda MD Primary Care Provider [phone] Encounter Details Date Type Department Care Team (Late Contact Info) Description 08/24/2024 ISVS Message Enc [facility] Medical Group Orthopedic & Sports Medicine - [place] [address] [employer], [facility] Provider Reschedule Social History Tobacco Use Types Packs/Day Years [...] Sex Assigned at Female 09/02/2023 11:01 AM ONLINE TRADER Legal Sex Female 3:52 PM CDT Gender Identity Female 09/02/2023 11:01 AM ONLINE TRADER Sexual Orientation Straight 09/02/2023 11 :01 AM ONLINE TRADER documented as of this encounter Functional Status * Over the past 2 weeks, how often have you been bothered by any of the following problems? Question Answer Date of Assessment Author Status Little interest or pleasure in doing things Not at all 08/26/2024 10:00 AM ONLINE TRADER Crissy Walker MA Active Feeling down, depressed, or hopeless Not at all 08/26/2024 10:00 AM Crissy Goddard MA Active Patient Health Questionnaire-2 Score 0 08/26/2024 10:00 AM Crissy Goddard MA Active documented as of this encounter Plan of Treatment Upcoming Encounters Date Type Department Care Team (Late st Contact Info) Description 03/07/2025 9:[address] [facility] [place] [place] [address] Alban Stewart MD 3 [place] [address] 03/07/2025 11:00 AM CDT Appointment [facility] [place] [address] Alban Stewart MD [address] [place] [address] 03/07/2025 12:[address] [place] [address] Alban Stewart MD 3 [place] [address] 03/15/2025 3:00 PM CDT Office Visit [facility] Medical [facility] Multispecialty Care - [place] [address] [place] [address] Yazmin Goldberg, KATIUSKA [address] [place] [address] 03/17/2025 11:40 AM CDT Office Visit [facility] Medical [facility] Multispecialty Care - [place] [address] [facility], [address] [place] [address] Alban Stewart MD 3 [place] [address] 04/14/2025 10:20 AM CDT Office Visit [facility] Medical Group Multispecialty Care - [place] [address] [address] [place] [address] Froilan Villeda MD [address] [place] [address] documented as of this encounter Visit Diagnoses Not on filedocumented in this encounter Additional Health Concerns Assessment Noted Time PHQ-9 Depression Total Score: 14 025 1:31 PM ONLINE TRADER documented as of this encounter Care Teams Door Installer Relationship Specialty Start Date End Date Froilan Villeda MD [address] [place] [address] PCP - General INTERNAL MEDICINE 01/26/23 documented as of this encounter
--- OUTSIDE RECORDS SUMMARY | 2025-02-27 12:46 | XMS_ITS | Encounter Summary ---
Author Organization [facility] Address [address] [place] [address] Care Team Providers Care Staffing Associate Name Role Phone Froilan Villeda MD Primary Care Provider [phone] Encounter Details Date Type Department Care Team (Latest Contact Info) Description 07/14/2024 MyChart Message Enc [facility] Medical Group Multispecialty Care - [address] [place], [place] [phone] Froilan Villeda MD [address] [facility] [address] [place], [place] [phone] Possibly fractured left ankle Social History Tobacco Use Types Packs/Day [...] Sex Assigned at Female 09/02/2023 11:01 AM MACHINE CASTINGS PLASTERER Legal Sex Female 3:52 PM CDT Gender Identity Female 09/02/2023 11:01 AM MACHINE CASTINGS PLASTERER Sexual Orientation Straight 09/02/2023 11 :01 AM MACHINE CASTINGS PLASTERER documented as of this encounter Plan of Treatment Upcoming Encounters Date Type Department Care Team (Late st Contact Info) Description 03/07/2025 9:[address] [facility] [place] [address] Alban Stewart MD 3 [place] [address] 03/07/2025 11:[address] [facility] [place] [address] Alban Stewart MD 3 [place] [address] 03/07/2025 12:[address] [place] [address] Alban Stewart MD 3 [place] [address] 03/15/2025 3:00 PM CDT Office Visit [facility] Medical Group Multispecialty Care - [place] [address] [place] [address] Yazmin Goldberg, [address] [place] [address] 03/17/2025 11:40 AM CDT Office Visit [facility] [address] [place] [address] Alban Stewart MD 3 [place] [address] 04/14/2025 10:20 AM CDT Office Visit [facility] Multispecialty Care - [place] [address] [address] [place] [address] Froilan Villeda MD [address] [facility] [address] [place] [address] documented as of this encounter Results * XR ANKLE LT M3V (07/15/2024 1:18 PM MACHINE CASTINGS PLASTERER) Anatomical Region Laterality Modality Ankle Radiographic Torie ging 07/15/2024 1:38 PM MACHINE CASTINGS PLASTERER Impressions 07/15/2024 1:38 PM MACHINE CASTINGS PLASTERER IMPRESSION: Comminuted oblique minimally displaced fracture of the distal fibula Ordered By: YAZMIN GOLDBERG Interpreted By: Obed Pruitt MD, 07/15/2024 1:38 PM Narrative 07/15/2024 1:38 PM MACHINE CASTINGS PLASTERER [facility] [place] [address] 3 VIEWS OF THE LEFT ANKLE Clinical History: Pain after fall Comparison: None 3 views of the left ankle demonstrate a comminuted mildly displaced oblique fracture of the distal fibula. The mortise is symmetric. The tibia appears intact. The surrounding soft tissues are within normal limits Procedure Note Obed Pruitt MD - 07/15/2024 [facility] [place] [address] 3 VIEWS OF THE LEFT ANKLE Clinical History: Pain after fall Comparison: None 3 views of the left ankle demonstrate a comminuted mildly displacedoblique fracture of the distal fibula. The mortise is symmetric. The tibiaappears intact. The surrounding soft tissues are within normal limits IMPRESSION: Comminuted oblique minimally displaced fracture of the distal fibula Ordered By: YAZMIN GOLDBERG Interpreted By: Obed Pruitt MD, 07/15/2024 1:38 PM us Yazmin Goldberg UNIT TRUST MANAGER GENERAL IMAGING Final Resul t documented in this encounter Visit Diagnoses Diagnosis Pain and swelling of left ankle- Primary documented in this encounter Additional Health Concerns Assessment Noted Time PHQ-9 Depression Total Score: 19 04/11/ 024 4:23 PM CDT documented as of this encounter Care Teams Staffing Associate Relationship Specialty Start Date End Date Froilan Villeda MD [address] [address] PCP - General INTERNAL MEDICINE 01/26/23 documented as of this encounter
--- OUTSIDE RECORDS SUMMARY | 2025-02-27 12:46 | XMS_ITS | Encounter Summary ---
Author Organization [facility] Address [address] [place] [address] Care Team Providers Care Office Machine Servicer Apprentice Name Role Phone Froilan Villeda MD Primary Care Provider Encounter Details Date Type Department Care Team (Latest Contact Info) Description 01/10/2025 MyChart Message Enc [facility] Medical Group Multispecialty Care - [address] [place], [place] [phone] Froilan Villeda MD [address] [place] [address] [address] [place], [place] [phone] Appointment dates Social History Tobacco Use Types Packs/Day Years [...] doctor or pharmacy? Never 11/08/2024 [facility] Utilities Answer Date Recorded In the past [...] week 11/08/2024 How often do you attend [facility] or gnosticism services? Patient unable to answer 11/08/2024 Do you belong to any clubs o r organizations such as taoist groups, unions, fraternal or athletic groups, or [...] Recorded Patient Health Questionnaire-2 Score 6 11/08/2024 [facility] - Occupational [...] any time in the past [address] [facility], were you homeless or living in a [facility] (including now)? No 11/08/2024 Comments No Sex and Gender Information Value Date Recorded Sex Assigned at Female 09/02/2023 11:01 AM DRY CLIPPER TENDER Legal Sex Female 3:52 PM CDT Gender Identity Female 09/02/2023 11:01 AM DRY CLIPPER TENDER Sexual Orientation Straight 09/02/2023 11 :01 AM DRY CLIPPER TENDER documented as of this encounter Functional Status * Calculated C-SSRS Risk Score (Lifetime/Recent) Answer Date of Assessment Author Status No Risk Indicated 01/12/2025 11:29 AM Cait Do RN Active * [place] Suicide Severity Rating Scale (Screener/Recent Self-Report) Question [...] [facility]ment [facility] [place] [address] Alban Stewart MD 3 [place] [address] 03/07/2025 11:00 AM CDT Appointment [facility] [place] [address] Alban Stewart MD 3 [place] [address] 03/07/2025 12:00 PM CDT Appointment [place] [address] Alban Stewart MD 3 [place] [address] 03/15/2025 3:00 PM CDT Office Visit [facility] Medical [facility] Multispecialty Care - [place] [address] [place] [address] Yazmin Goldberg, KATIUSKA [address] [place] [address] 03/17/2025 11:40 AM CDT Office Visit [facility] [address] [place] [address] Alban Stewart MD 3 [place] [address] 04/14/2025 10:20 AM CDT Office Visit [facility] Medical Group Multispecialty Care - [place] [address] [address] [place] [address] Froilan Villeda MD [address] [place] [address] documented as of this encounter Visit Diagnoses Not on filedocumented in this encounter Additional Health Concerns Assessment Noted Time PHQ-9 Depression Total Score: 14 025 1:31 PM DRY CLIPPER TENDER documented as of this encounter Care Teams Office Machine Servicer Apprentice Relationship Specialty Start Date End Date Froilan Villeda MD [address] [place] [address] PCP - General INTERNAL MEDICINE 01/26/23 documented as of this encounter
--- OUTSIDE RECORDS SUMMARY | 2025-02-27 12:46 | XMS_ITS | Encounter Summary ---
Author Organization [facility] Address [address] [place] [address] Care Team Providers Care Produce Sorter Name Role Phone Froilan Villeda MD Primary Care Provider [phone] Encounter Details Date Type Department Care Team (Late Contact Info) Description 07/27/2024 M-Farm Message Enc [facility] Medical Group Orthopedic & Sports Medicine - [address] [phone] [place], [facility] Provider Short Term Disability Paperwork Social History Tobacco Use Types Packs/Day Years [...] Sex Assigned at Female 09/02/2023 11:01 AM SR. MANAGER CORPORATE COMMUNICATIONS Legal Sex Female 3:52 PM CDT Gender Identity Female 09/02/2023 11:01 AM SR. MANAGER CORPORATE COMMUNICATIONS Sexual Orientation Straight 09/02/2023 11 :01 AM SR. MANAGER CORPORATE COMMUNICATIONS documented as of this encounter Plan of Treatment Upcoming Encounters Date Type Department Care Team (Late Contact Info) Description 03/07/2025 9:30 AM CDT Appointment [facility] [place], [place] [phone] Alban Stewart MD 3 [place] [address] 03/07/2025 11:[address] [facility] [place] [address] Alban Stewart MD 3 [place] [address] 03/07/2025 12:[address] [place] [address] Alban Stewart MD 3 [place] [address] 03/15/2025 3:00 PM CDT Office Visit [facility] Multispecialty Care - [place] [address] [place] [address] Yazmin Goldberg, [address] [place] [address] 03/17/2025 11:40 AM CDT Office Visit [facility] Multispecialty Care - [place] [address] [place] [address] Alban Stewart MD 3 [place] [address] 04/14/2025 10:20 AM CDT Office Visit [facility] Multispecialty Care - [place] [address] [place] [address] Froilan Villeda MD [address] [address] documented as of this encounter Visit Diagnoses Not on filedocumented in this encounter Additional Health Concerns Assessment Noted Time PHQ-9 Depression Total Score: 19 04/11/ 024 4:23 PM CDT documented as of this encounter Care Teams Produce Sorter Relationship Specialty Start Date End Date Froilan Villeda MD [address] [address] PCP - General INTERNAL MEDICINE 01/26/23 documented as of this encounter
--- OUTSIDE RECORDS SUMMARY | 2025-02-27 12:46 | XMS_ITS | Encounter Summary ---
Author Organization [facility] Address [address] [place] [address] Care Team Providers Care Manager Core Name Role Phone Froilan Villeda MD Primary Care Provider [phone] Encounter Details Date Type Department Care Team (Late st Contact Info) Description 10/28/2023 MyChart Message Enc [facility] Multispecialty Care [place] [address] [address] [place], [place] [phone] Froilan Villeda MD [address] [facility] [address] [place], [place] [phone] Otezla Social History Tobacco Use Types Packs/Day Years [...] Sex Assigned at Female 09/02/2023 11:01 AM CRYPTOGRAPHER Legal Sex Female 3:52 PM CDT Gender Identity Female 09/02/2023 11:01 AM CRYPTOGRAPHER Sexual Orientation Straight 09/02/2023 11 :01 AM CRYPTOGRAPHER documented as of this encounter Plan of Treatment Upcoming Encounters Date Type Department Care Team (Late st Contact Info) Description 03/07/2025 9:[address] [facility] [place] [address] Alban Stewart MD 3 [place] [address] 03/07/2025 11:[address] [facility] [place] [address] Alban Stewart MD 3 [place] [address] 03/07/2025 12:[address] [place] [address] Alban Stewart MD 3 [place] [address] 03/15/2025 3:00 PM CDT [facility] Multispecialty Care - [place] [address] [place] [address] Yazmin Goldberg, [address] [place] [address] 03/17/2025 11:40 AM CDT [facility] [address] [place] [address] Alban Stewart MD 3 [place] [address] 04/14/2025 10:20 AM CDT [facility] Multispecialty Care - [place] [address] [address] [place] [address] Froilan Villeda MD [address] [place] [address] documented as of this encounter Visit Diagnoses Not on filedocumented in this encounter Additional Health Concerns Assessment Noted Time PHQ-9 Depression Total Score: 7 09/23/19 24 2:09 PM CDT documented as of this encounter Care Teams Manager Core Relationship Specialty Start Date End Date Froilan Villeda MD [address] [place] [address] PCP - General INTERNAL MEDICINE 01/26/23 documented as of this encounter
--- OUTSIDE RECORDS SUMMARY | 2025-02-27 12:47 | XMS_ITS | Clinical Summary ---
Author Organization [facility] Address [address] [place] [address] Care Team Providers Care Houseperson Name Role Phone Froilan Villeda MD Primary Care Provider [phone] Allergies Active Allergy Reactions Criticality Noted Date Comments Codeine Nausea And Vomiting,Nausea only Low 05/19/2012 Iodinated Contrast Media Hives,Itching High 05/22/2011 Lisinopril-Hydrochlorot hiazide Rash Medium 04/05/2021 Nuts Anaphylaxis,Swelling High 06/23/2016 Also allergic to PECANS Also allergic to PECANS Throat swells, itching Also allergic to PECANS, WALNUTS Throat swells, itching Tree Nuts Anaphylaxis High 06/23/2016 Also allergic to PECANS, WALNUTS Throat swells, itching Unclassified Drug Anaphylaxis,Itching, S welling High 11/30/2018 Medications ALPRAZolam (XANAX) 0.5 mg tabletIndicatio ns:anxiety Take 1 tablet (0.5 mg total) by mouth as needed for anxiety 0 Active cloNIDine (CATAPRES) 0.1 mg tabletIndicatio ns:hypertension Take 1 tablet (0.1 mg total) by mouth 2 (two) times a day 1 Active amLODIPine (NORVASC) 5 mg tabletIndicatio ns:hypertension Take 1 tablet (5 mg total) by mouth nightly 1 Active buPROPion XL (WELLBUTRIN XL) 150 mg 24 hr tabletIndicatio ns:Anxiety with Depression Take 1 tablet (150 mg total) by mouth every morning 2 Active ketoconazole (NIZORAL) 2 % shampooIndicati ons:Dandruff Apply 1 application topically 3 (three) times a week 2 Active senna-docusate (PERICOLACE) 8.6-50 mgIndications:c onstipation Take 1 tablet by mouth as needed for constipation Active bisacodyl EC (DULCOLAX EC) 5 mg EC tabletIndicatio ns:constipation Take 10 mg by mouth as needed for constipation Active CYANOCOBALAMIN, VITAMIN B-12, ORALIndications :supplement Take 1,000 mcg by mouth every morning Active clobetasoL (TEMOVATE) 0.05 % external solution 3 Active HYDROcodone-jameson taminophen (NORCO) 10-325 mg per tabletIndicatio ns:Pain Take 1 tablet by mouth every 6 (six) hours as needed for pain Active lidocaine (LIDODERM) 5 % Place 1 patch on the skin daily Remove & discard patch within 12 hours or as directed by . 15 patch 3 3 Active cyclobenzaprine (FLEXERIL) 5 mg tablet Take 1 tablet (5 mg total) by mouth 3 (three) times a day as needed for muscle spasms 60 tablet 3 3 Active gabapentin (NEURONTIN) 300 mg capsuleIndicati ons:Neuropathic Pain Take 1 capsule (300 mg total) by mouth 3 (three) times a day 90 capsule 2 3 Active albuterol HFA (PROVENTIL HFA,VENTOLIN HFA,PROAIR HFA) 90 mcg/actuation inhaler 3 Active azithromycin (ZITHROMAX) 250 mg tablet 3 Active Advair Diskus 250-50 mcg/dose diskus inhaler 3 Active montelukast (SINGULAIR) 10 mg tablet 3 Active Active Problems Problem Noted Date Diagnosed Date Sebopsoriasis 03/14/2022 History of migraine headaches 05/01/2021 Chronic, continuous use of opioids 05/01/2021 At risk for obstructive sleep apnea 05/01/2021 Asthma 05/01/2021 Class 2 obesity in adult 05/01/2021 Diastolic dysfunction 05/01/2021 Cervical disc disorder with radiculopathy of cervical region 03/05/2021 Overview (03/05/2021): Added automatically from request for surgery [id number] Aortic valve sclerosis 01/30/2021 Overview (10/16/2021): Echo 2020- mild EF 60-65% Grade 1 diastolic Trace AR, TR Cervical radiculopathy 07/21/2019 Cervicalgia 03/10/2019 Degenerative disc disease, cervical 03/10/2019 Degenerative cervical spinal stenosis 03/10/2019 Nondisplaced fracture of rig ht radial styloid process, subsequent encounter for closed fracture with routine healing 02/01/2019 Bilateral occipital neuralgia 11/13/2017 Carpal tunnel syndrome of left wrist 04/30/2016 Overview (10/16/2021): Get records from prior ortho. Consider referral to ortho to address Gastroesophageal reflux disease without esophagi tis 04/30/2016 Overview (10/16/2021): Controlled with OTC nexium daily. monitor Migraine 01/24/2014 Overview (10/17/2016): MIGRNE UNSP WO NTRC MGRN Irritable bowel syndrome 11/26/2013 Overview (10/16/2016): IRRITABLE BOWEL SYNDROME Chronic migraine 11/23/2013 Overview (10/15/2016): Headache Depression 11/23/2013 Overview (10/15/2016): Depression Anxiety 11/23/2013 Overview (10/16/2016): Anxiety Hypertension 11/23/2013 Overview (10/16/2016): Hypertension Migraine without aura and wi th status migrainosus, not intractable 08/04/2013 Extrinsic asthma without complication 05/08/2011 Generalized anxiety disorder 05/08/2011 Moderate episode of recurrent major depressive d isorder 05/08/2011 Immunizations Immunization Administration Dates Next Due Influenza, Quadrivalent, Spl it, Intramuscular 04/13/2015 Influenza, Quadrivalent, Spl it, Preservative Free, Intramuscular 04/05/2021,06/18/2018 Influenza, Trivalent, IM (MDV) 04/24/2020,2015 Influenza, Unspecified 04/30/2023,2021,04/05/2021,04/24,04/12/2020,06/18/2018,04/21/2016 ,04/13/2015 Pfizer SARS-CoV-2 Monovalent Vaccination (12+ Yrs) PURPLE 06/02/2021,07/20/2020,06/29/2020 Td, adsorbed 12/11/2001 Tdap 12/31/2018 ZOSTER Recombinant 11/22/2020 Surgical History Surgery Date Site/Laterality Comments SECTION CARPAL TUNNEL RELEASE Carpal tunnel release SECTION TONSILLECTOMY Medical History Medical History Date Comments Hx Other Medical headaches since 1986 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 Other Medical 02-Plate Mounter History of multiple allergies Al lergies Anxiety disorder Anxiety Hypertension Hypertension Depression Depression Hx Other Medical Headache, migra ine Hypertension Hypertension Headache, tension-type Migraine Asthma Chest pain Neck pain Chronic pain disorder GERD (gastroesophageal reflux disease) Sleep apnea Family History Medical History Relation Name Comments Other Brother 2 Alive and well; Hypertension Father Hypertension; Other Father Alive and well; /Pacemaker since 1990; Hypertension Mother Hypertension; Other Mother Alive and well; Heart disease Other 1 Family history of heart problems; Cancer Other 2 Family history of cancer; Hypertension Other 3 Family history of Hypertension; Breast cancer Paternal cousin Anesthesia problems Neg Hx Relation Name Status Comments Brother 1 Alive Brother 2 Father Alive Mother Alive Other 1 Other 2 Other 3 Paternal cousin Alive mastectomy Social History Tobacco Use Types Packs/Day Years Used Date Smoking Tobacco: Never Smokeless Tobacco: Never Tobacco Cessation:Counseling Given: No Alcohol Use Standard Drinks/Week Comments Yes 0 (1 standard drink = 0.6 oz pur e alcohol) AUDIT-C Answer Date Recorded Q1: How often do you have a drink containing alcohol? 4 or more times a week 09/28/2023 Q2: How many drinks containi ng alcohol do you have on a typical day when you are drinking? 3 or 4 Q3: How often do you have si x or more drinks on one occasion? Never 09/28/2023 Comments No Sex and Gender Information Value Date Recorded Sex Assigned at Not on file Legal Sex Female 4:40 PM MERCHANDISE EXAMINER Gender Identity Female 12/23/2021 6:44 PM CDT Sexual Orientation Straight 04/27/2019 2: 53 PM CDT Obstetrics History Para Term AB IAB SAB Ectopic Multiple Livin g Live Births 3 3 3 Date Outcome GA Total Labor Labor/2nd/3rd Weight Sex Type Anes PTL Maribell A1 A5 Name Clin Term Term Term Last Filed Vital Signs Vital Sign Reading Time Taken Comments Blood Pressure 163/89 09/28/2023 1:49 PM CDT Pulse 81 09/28/2023 1:49 PM CDT Temperature 36.4 C (97.6 F) 06/04/2022 11:15 AM MERCHANDISE EXAMINER Respiratory Rate 16 06/04/2022 11:1 5 AM MERCHANDISE EXAMINER Oxygen Saturation 97% 06/04/2022 11: 15 AM MERCHANDISE EXAMINER Inhaled Oxygen Concentration - - Weight 103.1 kg (227 lb 3.2 oz) 09/28/2023 1:49 PM CDT Height 167.6 cm (5' 6) 09/28/2023 1:49 PM CDT Body Mass Index 36.67 09/28/2023 1:49 PM CDT Plan of Treatment Health Maintenance Due Date Last Done Comments Colon Cancer Screening-Colonoscopy 1967 Depression Screening 1967 Hepatitis C Screening 1967 Hepatitis B Screening 11/16/1985 Regular Well Visit/Exam 18-64 11/16/1985 Pneumococcal vaccine <65 (1 of 2 - PCV) 11/16/1986 Zoster Vaccine (2 of 2) 01/17/2021 11/22/2020 Breast Cancer Screening-Mammogram 10/31/2021 10/31/2020, 10/31/2020, 09/02/2019, Additional history exists Covid-19 Vaccine (4 2023-2 5 season) 2024 06/02/2021, 07/20/2020, 06/29/2020 Cervical Cancer Screening 10/22/2024 10/23/2023 Influenza Vaccine (#1) 2025 3, 05/13/2022, 04/05/2021, Additional history exists DTaP/Tdap/Td Vaccine (2 - Td or Tdap) 12/31/2028 12/31/2018, 12/11/2001 Goals Goal Patient Goal Type Associated Problems Recent Progress Patient-Stated? Author CCM Chronic Pain Care Plan Chronic Care Management No Zahira Galvin RN Note: Problem: Chronic Pain Goals: 1. Minimize further functional decline 2. Maximize quality of life 3. Control pain Strategies: - Activity/exercise program recommendation - Conservative stepwise pain medicine strategy with multi-disciplinary approach - Recommend healthy lifestyle strategies and compensatory methods as needed Reduce the likelihood of falling Lifestyle No Zahira Galvin RN Note: Below are four things you can do to prevent falls: Begin an exercise program to improve your leg strength & balance Ask your doctor or pharmacist to review your medicines Get annual eye check-ups & update your eyeglasses Make your home safer by: Removing clutter & tripping hazards Putting railings on all stairs & adding grab bars in the bathroom Having good lighting, especially on stairs Contact your local community or senior center for information on exercise, fall prevention programs, or options for improving home safety. Medical Devices Implanted Type Area Paunch Trimmer Device Identifier Shelf Expiration Date Model / Serial / Lot Cervical Fusion Neck Cerapedics Inc 700-142 I Factor Allograft Putty Syringe Graft 2.5cc Bone - [id number] Implanted:Qty : 1 on 05/06/2021 by Roque Prado MD at [facility] Right: Spine Cervical Ceraped[employer] Inc [id number] 01/10/2024 700-025 / / [id number] Hedron Ic Spacer 8x14 7mm Implanted:Qty : 1 on 05/06/2021 by Roque Prado MD at [facility] Right: Spine Cervical [facility] [id number] 05/06/2029 / [id number] / [id number] Gl[employer] 1128.1207 Coalition Agx 14x7mm Spine Plate Bone - [id number] Implanted:Qty : 1 on 05/06/2021 by Roque Prado MD at [facility] Right: Spine Cervical [employer] 1128.1207 / / Gl[employer] 184.154 3.6mm 14mm Variable Angle Self Drill Spine Standard Screw Bone - [id number] Implanted:Qty : 2 on 05/06/2021 by Roque Prado MD at [facility] Right: Spine Cervical [employer] 184.154 / / Depuy Synthes Spine Lock Cap Spine T15 Standard Screw Set Titanium Nonsterile [id number] - [id number] Implanted:Qty : 6 on 06/03/2022 by Roque Prado MD at [facility] N/A: Spine Cervical Depuy Synthes Spine [id number] / / Depuy Synthes Spine Graft Bone Filler Sm Inj Fibergraft Bg Gps 4cc Putty [id number] - [id number] Implanted:Qty : 1 on 06/03/2022 by Roque Prado MD at [facility] N/A: Spine Cervical Depuy Synthes Spine 11/21/2023 [id number] / / [id number] Allosource Crushed Fresh Frozen Cancellous 1-4mm Graft 15ml Bone [id number] - [id number] Implanted:Qty : 1 on 06/03/2022 by Roque Prado MD at [facility] N/A: Spine Cervical Allosource 12/31/2022 [id number] / / [id number] Depuy Synthes Spine 3.5mm 14mm Ply Spine Screw Bone Nonsterile 4mm Ronald [id number] - [id number] Implanted:Qty : 6 on 06/03/2022 by Roque Prado MD at [facility] N/A: Spine Cervical Depuy Synthes Spine [id number] / / Depuy Synthes Spine 3.5mm 40mm Lordosis Ronald Spinal Titanium [id number] - [id number] Implanted:Qty : 2 on 06/03/2022 by Roque Prado MD at [facility] N/A: Spine Cervical Depuy Synthes Spine [id number] / / Procedures Procedure Name Priority Date/Time Associated Diagnosis Comments SCREENING MAMMOGRAM BILATERAL W HARDIK Schedule Routine, Read Routine (OP Routine) 09/02/2019 1:38 PM MERCHANDISE EXAMINER Encounter for screening mammogram for malignant neoplasm of breast from Last 3 Months or Most Recently Relevant to Health Maintenance Results * Screening Mammogram Bilateral W Hardik (09/02/2019 1:38 PM MERCHANDISE EXAMINER) Anatomical Region Laterality Modality Breast Bilateral Mammography 09/05/2019 11:1 7 AM MERCHANDISE EXAMINER Impressions 09/05/2019 11:20 AM MERCHANDISE EXAMINER There is no mammographic evidence of malignancy. A 1 year screening mammogram is recommended. BI-RADS: 1 - Negative. The patient will be entered into a reminder system with a target due date of 1 year for her next mammogram. Electronically signed by: Aaron Garcia M.D. Narrative 09/05/2019 11:20 AM MERCHANDISE EXAMINER EXAMINATION: SCREENING MAMMOGRAM BILATERAL W HARDIK ORDERING HEALTHCARE PROVIDER: JS LEOS HISTORY: Routine screening mammography. COMPARISON: 09/16/2017, 12/21/2013, 09/07/2008. TECHNIQUE: CC and MLO views of the bilateral breasts were obtained with digital technique using breast tomosynthesis with C view. Computer aided detection was utilized. FINDINGS: DENSITY: There are scattered fibroglandular elements in the bilateral breasts. BREASTS: There are no suspicious masses, suspicious calcifications, or other suspicious findings in either breast. There has been no suspicious interval change. us Js Leos MD IMG MAMMO PROCEDURES Final Result from Last 3 Months or Most Recently Relevant to Health Maintenance Insurance [facility] GENERIC Advance Directives For more information, please contact: [phone] * Full Code (Latest Code Status on File) Date Activated Date Inactivated Comments 06/03/2022 6:48 PM 06/04/2022 9:23 PM * Full Code Date Activated Date Inactivated Comments 05/06/2021 4:21 PM 05/07/2021 5:27 PM Care Teams Houseperson Relationship Specialty Start Date End Date Froilan Villeda MD [address] [place] [address] PCP - General Internal Medicine 09/28/23
--- OUTSIDE RECORDS SUMMARY | 2025-02-27 12:47 | XMS_ITS | Clinical Summary ---
Author Organization [facility] Address [address] [place] [address] Care Team Providers Care General Repair Mechanic Name Role Phone Aaron Prakash MD Primary Care Provider [phone] Allergies Active Allergy Reactions Criticality Noted Date Comments Codeine Nausea and Vomiting Low 05/19/2012 Iodinated Contrast Media Hives,Itching High 05/22/2011 Lisinopril-Hydrochloro thiazide Rash Medium 04/05/2021 Tree Nuts Swelling Medium 06/23/2016 Also allergic to PECANS Throat swells, itching Medications cyclobenzaprine (FLEXERIL) 10 mg tablet 2 Active methocarbamoL (ROBAXIN) 750 mg tablet Take 750 mg by mouth. 2 Active amLODIPine (NORVASC) 5 mg tabletIndications :Essential hypertension Take 1 Tablet (5 mg) by mouth daily. 90 Tablet 3 3 Active cloNIDine HCL (CATAPRES) 0.1 mg tabletIndications :Essential hypertension Take 1 Tablet (0.1 mg) by mouth 2 times daily. 180 Tablet 3 3 Active HYDROcodone-aceta minophen (NORCO) 7.5-325 mg TabletIndications :Cervical stenosis of spinal canal Take 1 Tablet by mouth every 4 hours as needed for Pain, Moderate. Dx DJD neck Max Daily Amount: 6 Tablets 42 Tablet 3 Active ALPRAZolam (XANAX) 0.25 mg tabletIndications :Anxiety state Take 1 Tablet (0.25 mg) by mouth 1 time daily as needed for Anxiety. 30 Tablet 3 3 Active inhalational spacing device (Microchamber) SpacerIndications :Mild intermittent extrinsic asthma without complication Use with albuterol inhaler. 1 Each 1 3 Active fluticasone propion-salmetero L (ADVAIR DISKUS,WIXELA INHUB) 250-50 mcg/dose disk inhalerIndication s:Mild intermittent extrinsic asthma without complication Take 1 Puff by inhalation 2 times daily. 60 Each 2 3 Active montelukast (SINGULAIR) 10 mg tabletIndications :Mild intermittent extrinsic asthma without complication Take 1 Tablet (10 mg) by mouth daily at bedtime. 30 Tablet 2 3 Active buPROPion HCL (WELLBUTRIN XL) 150 mg Extended Release 24 hour tabletIndications :Recurrent major depressive disorder, remission status unspecified TAKE 1 TABLET(150 MG) BY MOUTH DAILY IN THE MORNING 90 Tablet 1 4 Active albuterol sulfate HFA 90 mcg/actuation aerosol inhalerIndication s:Mild intermittent extrinsic asthma without complication inhale 2 puffs by mouth every 6 hours as needed for shortness of breath 8.5 Gram 4 Active DULoxetine (CYMBALTA) 60 mg Capsule, Delayed Release(E.C.) TAKE 1 CAPSULE(60 MG) BY MOUTH DAILY 90 Capsule 3 4 Active Active Problems Patient Care Coordination No te Formatting of this note migh t be different from the original. Prev 02/12/23 Problem Noted Date Diagnosed Date Aortic valve sclerosis 01/30/2021 Overview (01/30/2021): Echo 2020- mild EF 60-65% Grade 1 diastolic Trace AR, TR Cervical stenosis of spinal canal 08/14/2020 Chronic constipation 07/20/2019 Migraine without aura, with intractable migraine, so stated, with status migrainosus 08/04/2013 Depression 05/08/2011 Generalized anxiety disorder 05/08/2011 Extrinsic asthma without complication 05/08/2011 Resolved Problems Problem Noted Date Diagnosed Date Resolved Date Postsurgical arthrodesis status 02/10/2020 08/14/2020 Neck pain 02/10/2020 11/22/2020 Postoperative follow-up 02/10/2020 02/0 08/2020 High blood pressure 05/08/2011 08/03/19 19 Immunizations Immunization Administration Dates Next Due (ADACEL/BOOSTRIX)(10 YR UP) TDAP VACCINE, 0.5ML, IM 12/31/2018 (PFIZER)(12 YR UP) COVID-19 VACCINE - EMERGENCY USE AUTHORIZATION, MRNA, [id number](PF) 30 MCG/0.3 ML IM SUSP 06/02/2021,07/20/2020,06/29/2020 (SHINGRIX)(50 YRS UP) ZOSTER VACCINE RECOMBINANT, 0.5 ML, IM 11/22/2020 (TDVAX)(7 YRS UP) TETANUS AN D DIPHTHERIA TOXOIDS, ADSORBED (2 LF OF TETANUS TOXOID AND 2 LF OF DIPHTHERIA TOXOID), 0.5ML (PF), IM 12/11/2001 INFLUENZA VACCINE QUADRIVALE NT 3 YR UP PF IM 06/18/2018 INFLUENZA VACCINE QUADRIVALENT 6 MOS UP IM 04/13 INFLUENZA VACCINE QUADRIVALE NT 6 MOS UP PF IM 04/05/2021 Influenza Seasonal Unspecifi ed Formulation IM 04/24/2020,04/21/2016 Influenza, Unspecified Formulation 05/13/2022 Family History Medical History Relation Name Comments Hypertension Brother Other Brother tobacco use Healthy Daughter 1 Anemia Daughter 2 Mayte Twichell Cancer Father Isak Flores Tiwari skin Hypertension Father Isak Flores Tiwari Pacemaker Father Isak Flores Tiwari Skin Cancer Father Isak Flores Tiwari Cancer Maternal Aunt brain Migraines Maternal Aunt Headaches Mother Hypertension Mother Asthma Son 1 Ron Twichell Healthy Son 1 Ron Twichell Hypertension Son 1 Ron Twichell Healthy Son 2 Skin Cancer Son 3 Jim TWICHELL Anxiety, hea rt procedure Relation Name Status Comments Brother Daughter 1 Alive Daughter 2 Mayte Twichell Father Isak Flores Tiwari Maternal Aunt Mother Son 1 Ron Twichell Alive Son 2 Alive Son 3 Jim TWICHELL Social History Tobacco Use Types Packs/Day Years Used Date Smoking Tobacco: Never Passive Smoke Exposure: Never Smokeless Tobacco: Never Tobacco Cessation:Counseling Given: No Comments:None Alcohol Use Standard Drinks/Week Comments Yes 10 (1 standard drink = 0.6 oz pu re alcohol) Comments No Sex and Gender Information Value Date Recorded Sex Assigned at Not on file Legal Sex Female 6:04 AM DECK BUILDER Gender Identity Not on file Sexual Orientation Not on file Occupation Industry Job Start Date Job End Date Not on file Not on file Not on file Not on file Last Filed Vital Signs Vital Sign Reading Time Taken Comments Blood Pressure 124/72 04/15/2023 10:37 AM CDT Pulse 71 04/15/2023 10:37 AM CDT Temperature 36.6 C (97.8 F) 04/15/2023 10:37 AM CDT Respiratory Rate 16 02/12/2023 8:58 AM CDT Oxygen Saturation 98% 04/15/2023 10:37 AM CDT Inhaled Oxygen Concentration - - Weight 94.8 kg (209 lb) 04/15/2023 10:37 AM CDT Height 167.6 cm (5' 6) 04/15/2023 10:37 AM CDT Body Mass Index 33.73 04/15/2023 10:37 AM CDT Plan of Treatment Health Maintenance Due Date Last Done Comments HEPATITIS B VACCINES (1 of 3 - 19+ 3-dose series) 11/16/1986 HPV/Cotest (21-29) 11/16/1988 HPV/Cotest (30-65) 11/16/1997 COLORECTAL SCREENING 11/16/2012 Colorectal Cancer Screening 11/16/2012 FIT-DNA Q 3 years 11/16/2012 FIT/FOBT Q 1 year 11/16/2012 Flex Sig/CT Colonography Q 5 years 11/16/2012 ZOSTER VACCINE (2 of 2) 01/17/2021 11/22/2020 CERVICAL CANCER SCREENING 04/12/2021 PAP SMEAR 04/12/2021 04/12/2018 BREAST CANCER SCREENING 10/31/2021 11/01/19 21, 09/02/2019, 09/01/2019, Additional history exists COVID-19 Vaccine (2023-2 5 season) 2024 06/02/2021, 07/20/2020, 06/29/2020 INFLUENZA VACCINE (#1) 2025 , 04/24/2020, 06/18/2018, Additional history exists DTAP/TDAP/TD VACCINES (2 - T d or Tdap) 12/31/2028 12/31/2018, 12/11/2001 Medical Devices Implanted Type Area Business Office Associate Device Identifier Shelf Expiration Date Model / Serial / Lot Hemostatic Surgiflo 8ml W/Thrombin 2994 - [id number] Implanted:Qty: 1 on 01/23/2020 by Srinath Matos MD at [facility] Hemostatic N/A: Spine Cervical Anterior J&J- [employer] 11/09/2020 [id number] / / [id number] Plate Uniplate I Lvl 16mm - Sload Number [id number] Implanted:Qty: 1 on 01/23/2020 by Srinath Matos MD at [facility] Plate N/A: Spine Cervical Anterior J&J- [employer] / LOAD NUMBER 411 / STERILIZ ED ON 01/18/20 20 Description:All Depuy spinal hardware was processed on requisition [id number]. Screw Uniplate Sd 14mm - Sload Number [id number] Implanted:Qty: 2 on 01/23/2020 by Srinath Matos MD at [facility] Screw N/A: Spine Cervical Anterior J&J- [employer] / LOAD NUMBER 411 / STERILIZ ED ON 01/18/20 20 Allograft Spacer Acf 7mm [id number] - [id number] Implanted:Qty: 1 on 01/23/2020 by Srinath Matos MD at [facility] Tissue N/A: Spine Cervical Anterior MUSCULOSKELETAL TRANSPLANT FOU 03/15/2024 [id number] / [id number] / Procedures Procedure Name Priority Date/Time Associated Diagnosis Comments MAMMO SCREEN BILAT W OR WO CAD Routine 10/31/2020 Visit for screening mammogram from Last 3 Months or Most Recently Relevant to Health Maintenance Results * MAMMO SCREEN BILAT W OR WO CAD (10/31/2020) Anatomical Region Laterality Modality Breast Bilateral Mammography Aaron Prakash MD MAMMO ORDERABLES Final Result from Last 3 Months or Most Recently Relevant to Health Maintenance Insurance RX [employer] RX Member Subscriber Plan / Payer (Ef fective 2020-Present) Name:Zahira Wiley Relation to Subscriber:Self Name:Zahira Wiley Payer ID:Not on file Type:RX Commercial Address: [address] [place] MEDICAID [place] OUT OF NETWORK Advance Directives For more information, please contact: [phone] * Full Code (Latest Code Status on File) Date Activated Date Inactivated Comments 01/23/2020 9:34 AM 01/23/2020 4:28 PM Care Teams General Repair Mechanic Relationship Specialty Start Date End Date Aaron Prakash MD PCP - General Internal Medicine 01/27/18
--- OUTSIDE RECORDS SUMMARY | 2025-02-27 12:47 | XMS_ITS | Encounter Summary ---
Author Organization [facility] - [facility] Address [address] [place] [address] Care Team Providers Care Actuary Manager Name Role Phone Froilan Villeda MD Primary Care Provider [phone] Encounter Details Date Type Department Care Team (Late st Contact Info) Description 04/06/2024 Andelhart Message Enc [facility] Multispecialty Care - [place] [address] [address] [address] [place], [place] [phone] Froilan Villeda MD [address] [facility] 157 [place], [place] [id number] Pain Social History Tobacco Use Types Packs/Day Years [...] Sex Assigned at Female 09/02/2023 11:01 AM CLAIMS EXAMINER Legal Sex Female 3:52 PM CDT Gender Identity Female 09/02/2023 11:01 AM CLAIMS EXAMINER Sexual Orientation Straight 09/02/2023 11 :01 AM CLAIMS EXAMINER documented as of this encounter Plan of Treatment Upcoming Encounters Date Type Department Care Team (Late st Contact Info) Description 03/07/2025 9:30 AM CDT Appointment [facility] [place] [address] Alban Stewart MD 3 [place] [address] 03/07/2025 11:[address] [place] [address] Alban Stewart MD 3 [place] [address] 03/07/2025 12:[address] [place] [address] Alban Stewart MD 3 [place] [address] 03/15/2025 3:00 PM CDT Office Visit [facility] Mult[facility] Care - [place] [address] [place] [address] Yazmin Goldberg, ALARM SIGNAL OPERATOR [address] [place] [address] 03/17/2025 11:40 AM CDT Office Visit [facility] - [facility] [address] [place] [phone] Alban Stewart MD 3 [place] [address] 04/14/2025 10:20 AM CDT Office Visit [facility] Mult[facility]pec[facility]ty [facility] - [place] [address] [address] [place] [address] Froilan Villeda MD [address] [place] [address] documented as of this encounter Visit Diagnoses Not on filedocumented in this encounter Additional Health Concerns Assessment Noted Time PHQ-9 Depression Total Score: 7 09/23/19 24 2:09 PM CDT documented as of this encounter Care Teams Actuary Manager Relationship Specialty Start Date End Date Froilan Villeda MD [address] [place] [address] PCP - General INTERNAL MEDICINE 01/26/23 documented as of this encounter
--- OUTSIDE RECORDS SUMMARY | 2025-02-27 12:47 | XMS_ITS | Encounter Summary ---
Author Organization [facility] - [facility] Address [address] [place] [address] Care Team Providers Care Field Marketer Name Role Phone Froilan Villeda MD Primary Care Provider [phone] Encounter Details Date Type Department Care Team (Late st Contact Info) Description 05/04/2024 Innogeneticst Message Enc [facility] Medical Group Multispecialty Care [place] [address] [address] [address] [place], [place] [phone] Froilan Villeda MD [address] [facility] 157 [place], [place] [phone] CT Social History Tobacco Use Types Packs/Day Years [...] Sex Assigned at Female 09/02/2023 11:01 AM PHOTOENGRAVING PRINTER Legal Sex Female 3:52 PM CDT Gender Identity Female 09/02/2023 11:01 AM PHOTOENGRAVING PRINTER Sexual Orientation Straight 09/02/2023 11 :01 AM PHOTOENGRAVING PRINTER documented as of this encounter Plan of Treatment Upcoming Encounters Date Type Department Care Team (Late st Contact Info) Description 03/07/2025 9:30 AM CDT Appointment [facility] [place] [address] Alban Stewart MD 3 [place] [address] 03/07/2025 11:[address] [place] [address] Alban Stewart MD 3 [place] [address] 03/07/2025 12:[address] [place] [address] Alban Stewart MD 3 [place] [address] 03/15/2025 3:00 PM CDT Office Visit [facility] Mult[facility]pecialty Care - [place] [address] [place] [address] Yazmin Goldberg, WATCH ENGINEER [address] [place] [address] 03/17/2025 11:40 AM CDT Office Visit [facility] Care - [facility] [address] [place] [phone] Alban Stewart MD 3 [place] [address] 04/14/2025 10:20 AM CDT Office Visit [facility] Multispecialty Care - [place] [address] [address] [address] [place] [address] Froilan Villeda MD [address] [place] [address] documented as of this encounter Visit Diagnoses Not on filedocumented in this encounter Additional Health Concerns Assessment Noted Time PHQ-9 Depression Total Score: 19 024 4:23 PM CDT documented as of this encounter Care Teams Field Marketer Relationship Specialty Start Date End Date Froilan Villeda MD [address] [place] [id number] PCP - General INTERNAL MEDICINE 01/26/23 documented as of this encounter
--- OUTSIDE RECORDS SUMMARY | 2025-02-27 12:47 | XMS_ITS | Encounter Summary ---
Author Organization [facility] - [facility] Address [address] [place] [address] Care Team Providers Care Finishing Department Supervisor Name Role Phone Frolian Villeda MD Primary Care Provider [phone] Encounter Details Date Type Department Care Team (Latest Contact Info) Description 02/23/2024 MyChart Message Enc [facility] Medical Group Multispecialty Care [address] [place], [place] [phone] Froilan Villeda MD [address] [facility] 157 [place], [place] [phone] Prescription Zepbound Social History Tobacco Use Types Packs/Day Years [...] Sex Assigned at Female 09/02/2023 11:01 AM HEDIS NURSE Legal Sex Female 3:52 PM CDT Gender Identity Female 09/02/2023 11:01 AM HEDIS NURSE Sexual Orientation Straight 09/02/2023 11 :01 AM HEDIS NURSE documented as of this encounter Plan of Treatment Upcoming Encounters Date Type Department Care Team (Late st Contact Info) Description 03/07/2025 9:[address] [facility] [place] [address] Alban Stewart MD 3 [place] [address] 03/07/2025 11:[address] [facility] [place] [address] Alban Stewart MD 3 [place] [address] 03/07/2025 12:[address] [place] [address] Alban Stewart MD 3 [place] [address] 03/15/2025 3:00 PM CDT Office Visit [facility] Medical Group Multispecialty Care - [place] [address] [place] [address] Yazmin Goldberg, [address] [place] [address] 03/17/2025 11:40 AM CDT Office Visit [facility] [address] [place] [phone] Alban Stewart MD 3 [place] [address] 04/14/2025 10:20 AM CDT Office Visit [facility] Medical Group Multispecialty Care - [place] [address] [address] [address] [place] [address] Froilan Villeda MD [address] [place] [address] documented as of this encounter Visit Diagnoses Not on filedocumented in this encounter Additional Health Concerns Assessment Noted Time PHQ-9 Depression Total Score: 7 09/23/19 24 2:09 PM CDT documented as of this encounter Care Teams Finishing Department Supervisor Relationship Specialty Start Date End Date Froilan Villeda MD [address] [place] [address] PCP - General INTERNAL MEDICINE 01/26/23 documented as of this encounter
--- OUTSIDE RECORDS SUMMARY | 2025-02-27 12:47 | XMS_ITS | Encounter Summary ---
Author Organization [facility] - [facility] Address [address] [place] [address] Care Team Providers Care Car Clerk Pullman Name Role Phone Froilan Villeda MD Primary Care Provider [phone] Encounter Details Date Type Department Care Team (Latest Contact Info) Description 04/13/2024 Send Word Nowt Message Enc [facility] Medical [facility] Multispecialty Care - [address] [place], [place] [phone] Froilan Villeda MD 118[address] [facility] 157 [place], [place] [phone] Pulse like heartbeat in face Social History Tobacco Use Types Packs/Day Years [...] Sex Assigned at Female 09/02/2023 11:01 AM SALES ENABLEMENT LEAD Legal Sex Female 3:52 PM CDT Gender Identity Female 09/02/2023 11:01 AM SALES ENABLEMENT LEAD Sexual Orientation Straight 09/02/2023 11 :01 AM SALES ENABLEMENT LEAD documented as of this encounter Plan of Treatment Upcoming Encounters Date Type Department Care Team (Late st Contact Info) Description 03/07/2025 9:[address] [facility] [place] [address] Alban Stewart MD 3 [place] [address] 03/07/2025 11:[address] [facility] [place] [address] Alban Stewart MD 3 [place] [address] 03/07/2025 12:[address] [place] [address] Alban Stewart MD 3 [place] [address] 03/15/2025 3:00 PM CDT Office Visit [facility] - [place] [address] [place] [address] Yazmin Goldberg, [address] [place] [address] 03/17/2025 11:40 AM CDT Office Visit [facility] [address] [place] [address] Alban Stewart MD [address] [place] [address] 04/14/2025 10:20 AM CDT Office Visit [facility] Multispecialty Care - [place] [address] [address] [address] [place] [address] Froilan Villeda MD [address] [place] [address] documented as of this encounter Visit Diagnoses Not on filedocumented in this encounter Additional Health Concerns Assessment Noted Time PHQ-9 Depression Total Score: 19 04/11/ 024 4:23 PM CDT documented as of this encounter Care Teams Car Clerk Pullman Relationship Specialty Start Date End Date Froilan Villeda MD [address] [place] [address] PCP - General INTERNAL MEDICINE 01/26/23 documented as of this encounter
--- OUTSIDE RECORDS SUMMARY | 2025-02-27 12:47 | XMS_ITS | Encounter Summary ---
Author Organization [facility] - [facility] Address [address] [place] [address] Care Team Providers Care Supervisor Display Fabrication Name Role Phone Froilan Villeda MD Primary Care Provider [phone] Encounter Details Date Type Department Care Team (Late st Contact Info) Description 12/11/2023 MyChart Message Enc [facility] Medical [facility] Multispecialty Care - [address] [place], [place] [phone] Froilan Villeda MD 118[address] [facility] 157 [place], [place] [phone] Guanfacine ER Social History Tobacco Use Types Packs/Day Years [...] Sex Assigned at Female 09/02/2023 11:01 AM TECHNOLOGY ANALYST Legal Sex Female 3:52 PM CDT Gender Identity Female 09/02/2023 11:01 AM TECHNOLOGY ANALYST Sexual Orientation Straight 09/02/2023 11 :01 AM TECHNOLOGY ANALYST documented as of this encounter Plan of Treatment Upcoming Encounters Date Type Department Care Team (Late st Contact Info) Description 03/07/2025 9:[address] [facility] [place] [address] Alban Stewart MD 3 [place] [address] 03/07/2025 11:[address] [facility] [place] [address] Alban Stewart MD 3 [place] [address] 03/07/2025 12:00 PM CDT App[place]ment [place] [address] Alban Stewart MD 3 [place] [address] 03/15/2025 3:00 PM CDT Office Visit [facility] Multispecialty Care - [place] [address] [place] [address] Yazmin Goldberg, [address] [place] [address] 03/17/2025 11:40 AM CDT Office Visit [facility] [address] [place] [address] Alban Stewart MD 3 [place] [address] 04/14/2025 10:20 AM CDT Office Visit [facility] Multispecialty Care - [place] [address] [address] [address] [place] [address] Froilan Villeda MD [address] [place] [address] documented as of this encounter Visit Diagnoses Not on filedocumented in this encounter Additional Health Concerns Assessment Noted Time PHQ-9 Depression Total Score: 7 09/23/19 24 2:09 PM CDT documented as of this encounter Care Teams Supervisor Display Fabrication Relationship Specialty Start Date End Date Froilan Villeda MD [address] [place] [address] PCP - General INTERNAL MEDICINE 01/26/23 documented as of this encounter
--- NOTE | 2025-02-27 12:50 | ED_ITS ---
HPI - Chest Pain General Chief Complaint: Chest Pain <Heather Geller PA-C - Last Filed: 02/28/25 09:25> Stated Complaint: CP <Heather Geller PA-C - Last Filed: 02/28/25 09:25> Time Seen by Provider: 02/27/25 12:50 <Heather Geller PA-C - Last Filed: 02/28/25 09:25> Focused HPI: This is a 59 year old female that presents to the ER for chest pain. Reports pain in the right jaw, nausea, chest pain. Ongoing intermittently over the last week. Reports she couldn't get the chest pain to go away this morning which prompted her to be seen. Reports history of sleep apnea. Has not been tolerating her CPAP. No history of CAD. She is not a smoker. GENERAL: Well-appearing, well-nourished, and in no acute distress. HEAD: Normocephalic, atraumatic. CHEST: Clear to auscultation. ?No respiratory distress. HEART: Regular rate and rhythm.? NEURO: ?Alert and oriented x3. Patient screened in triage and initial orders placed.? ?Additional care and disposition to be based upon?diagnostic testing and treatment. <Heather Geller PA-C - Last Filed: 02/28/25 09:25> Source: patient, RN notes reviewed and old records reviewed <Feli Bailey MD - Last Filed: 02/27/25 15:04> Mode of arrival: ambulatory <Feli Bailey MD - Last Filed: 02/27/25 15:04> Limitations: no limitations <Feli Bailey MD - Last Filed: 02/27/25 15:04> History of Present Illness HPI narrative: This is a 59 year old female with history of chronic neck pain, chronic chest pain who presents for evaluation of left chest pain. She states she has been having left lateral chest pain that radiates to her arm for decades. She has had heart catheterization 20 years ago for evaluation of this pain. She also had stress test 3 years ago. She reports her pain has been occurring intermittently for 1 week. She also report right neck pain . She has history of neck pain and neck surgery. 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 She denies any worsening arm weakness or numbness. She symptoms to be worse with activity or movement. <Feli Bailey MD - Last Filed: 02/27/25 15:04> MD complaint: chest pain <Feli Bailey MD - Last Filed: 02/27/25 15:04> Related Data Home Medications: Home Medications ?Medication ?Instructions ?Recorded ?Confirmed ?Last Taken ?Type amlodipine 2.5 mg tablet 2.5 mg PO DAILY 06/12/21 Unknown History cyclobenzaprine 10 mg tablet 10 mg PO TID 06/12/21 Unknown History duloxetine 60 mg capsule,delayed 60 mg PO DAILY 07/11/21 Unknown History release gabapentin 300 mg capsule 300 mg PO DAILY 06/12/21 Unknown History hydrocodone 5 mg-acetaminophen 325 1 tablet PO Q8H PRN 06/12/21 07/11/21 Unknown History mg tablet linaclotide 145 mcg capsule 145 mcg PO DAILY 06/12/21 07/11/21 Unknown History (Linzess) montelukast 10 mg tablet 10 mg PO DAILY 06/12/2106/14 Unknown History <Heather Geller PA-C - Last Filed: 02/28/25 09:25> Allergies/Adverse Reactions: Allergies Allergy/AdvReac Type Severity Reaction Status Date / Time lisinopril Allergy Hives Verified 02/27/25 11:53 acetaminophen AdvReac Unknown Nausea and Verified 02/27/25 11:53 Vomiting codeine AdvReac Unknown Nausea and Verified 02/27/25 11:53 Vomiting Iodinated Contrast Media AdvReac Unknown Unknown Verified 02/27/25 11:53 Contrast Media Allergy Unknown Hives / Uncoded 02/27/25 11:53 Red Face <Heather Geller PA-C - Last Filed: 02/28/25 09:25> Review of Systems 2 Review of Systems: All systems reviewed & are unremarkable except as noted in HPI and below <Heather Geller PA-C - Last Filed: 02/28/25 09:25> [facility] Past Medical History Medical History: Medical History Allergies Anxiety Chronic headaches GERD (gastroesophageal reflux disease) HTN (hypertension) <Heather Gelelr PA-C - Last Filed: 02/28/25 09:25> Surgical History Surgical History: Surgical History Hx of spinal fusion neck x2 <Heather Geller PA-C - Last Filed: 02/28/25 09:25> Family History Family History: Family History Mother Hypertension Father Hypertension Family history of heart disease in male family member before age 55 DANYELLE (obstructive sleep apnea) Sibling DANYELLE (obstructive sleep apnea) <Heather Geller PA-C - Last Filed: 02/28/25 09:25> Social History Social History: Social History Smoking status: Never smoker Alcohol intake: current Alcohol use details: 2 glasses of wine nightly Substance use: never Living arrangements: with family Occupation/Education: occupation <Heather Geller PA-C - Last Filed: 02/28/25 09:25> Exam 2 Const: General: no acute distress and alert <Feli Bailey MD - Last Filed: 02/27/25 15:04> Nutritional Appearance: well nourished <Feli Bailey MD - Last Filed: 02/27/25 15:04> Orientation/consciousness: patient oriented x3 <Feli Bailey MD - Last Filed: 02/27/25 15:04> Limitations: no limitations <Feli Bailey MD - Last Filed: 02/27/25 15:04> HENMT: Head: normal to inspection <Feli Bailey MD - Last Filed: 02/27/25 15:04> Mouth: Yes Normal oral and palatal mucosa present, Yes lip normal and Yes moist mucous membranes <Feli Bailey MD - Last Filed: 02/27/25 15:04> Teeth and gingiva: dentition normal <Feli Bailey MD - Last Filed: 02/27/25 15:04> Throat: posterior oropharynx normal and uvula midline <Feli Bailey MD - Last Filed: 02/27/25 15:04> Eyes: Pupils: Equal, round and reactive pupils present <Feli Bailey MD - Last Filed: 02/27/25 15:04> EOM: EOMs intact bilaterally <Feli Bailey MD - Last Filed: 02/27/25 15:04> Neck: Neck: normal visual inspection, no lymphadenopathy and no meningeal signs <Feli Bailey MD - Last Filed: 02/27/25 15:04> Chest: Chest palpation & inspection: normal inspection of the chest < Feli Bailey MD - Last Filed: 02/27/25 15:04> Resp: Effort & Inspection: normal respiratory effort <Feli Bailey MD - Last Filed: 02/27/25 15:04> Auscultation: clear to auscultation bilaterally <Feli Bailey MD - Last Filed: 02/27/25 15:04> Cardio: Rate: regular rate <Feli Bailey MD - Last Filed: 02/27/25 15:04> Rhythm: regular rhythm <Feli Bailey MD - Last Filed: 02/27/25 15:04> Heart sounds: no murmurs <Feli Bailey MD - Last Filed: 02/27/25 15:04> GI: GI Palp: Yes Soft to palpation, No Tenderness to palpation present (GI), No Guarding due to palpation present (GI) and No Rigid due to palpation < Feli Bailey MD - Last Filed: 02/27/25 15:04> Auscultation: normal bowel sounds <Feli Bailey MD - Last Filed: 02/27/25 15:04> Skin: General skin exam: normal color <Feli Bailey MD - Last Filed: 02/27/25 15:04> Rashes: no rashes <Feli Bailey MD - Last Filed: 02/27/25 15:04> Neuro: General: patient oriented x3, moves all extremities and CN's II-XI intact bilaterally <Feli Bailey MD - Last Filed: 02/27/25 15:04> Extrem: General: normal to inspection <Feli Bailey MD - Last Filed: 02/27/25 15:04> Psych: Mental Status: mental status grossly normal <Feli Bailey MD - Last Filed: 02/27/25 15:04> Affect: normal affect <Feli Bailey MD - Last Filed: 02/27/25 15:04> Attitude: cooperative <Feli Bailey MD - Last Filed: 02/27/25 15:04> Course Reevaluation(s) Reevaluation #1: Patient does not want to have 3 hour troponin. I discussed importance of repeat test. She still declines. She states she has had this pain for decades . She states she will follow up with PCP. Her pain does seem atypical for angina and she does not have exertional symptoms. <Feli Bailey MD - Last Filed: 02/27/25 15:04> Date: 02/27/25 <Feli Bailey MD - Last Filed: 02/27/25 15:04> Time: 14:53 <Feli Bailey MD - Last Filed: 02/27/25 15:04> Vital Signs Vital signs: Vital Signs Temperature 97.6 F 02/27/25 11:51 Pulse Rate 75 02/27/25 11:51 Respiratory Rate 16 02/27/25 11:51 Blood Pressure 136/45 L 02/27/25 11:51 Pulse Oximetry 98 02/27/25 11:51 Temperature 97.6 F 02/27/25 11:51 Pulse Rate 76 02/27/25 15:05 Respiratory Rate 14 02/27/25 15:05 Blood Pressure 138/86 02/27/25 15:05 Pulse Oximetry 98 02/27/25 15:05 Oxygen Delivery Room Air 02/27/25 13:37 <Heather Geller PA-C - Last Filed: 02/28/25 09:25> Vital Signs Temperature 97.6 F 02/27/25 11:51 Pulse Rate 75 02/27/25 11:51 Respiratory Rate 16 02/27/25 11:51 Blood Pressure 136/45 L 02/27/25 11:51 Pulse Oximetry 98 02/27/25 11:51 Temperature 97.6 F 02/27/25 11:51 Pulse Rate 76 02/27/25 15:05 Respiratory Rate 14 02/27/25 15:05 Blood Pressure 138/86 02/27/25 15:05 Pulse Oximetry 98 02/27/25 15:05 Oxygen Delivery Room Air 02/27/25 13:37 <Feli Bailey MD - Last Filed: 02/27/25 15:04> MDM - Chest Pain Differential Diagnosis Differential diagnosis: Likely unstable angina pectoris, atypical chest pain, costochondritis, chest pain and biliary colic <Feli Bailey MD - Last Filed: 02/27/25 15:04> Medical Records Data Attestation: I reviewed the patient's medical records. <Feli Bailey MD - Last Filed: 02/27/25 15:04> Lab Data Attestation: I reviewed the patient's lab results. <Feli Bailey MD - Last Filed: 02/27/25 15:04> Result diagrams: 02/27/25 11:37 02/27/25 11:36 <Heather Geller PA-C - Last Filed: 02/28/25 09:25> Labs: Lab Results 02/27/25 02/27/25 Range/Units 11:36 11:37 WBC 8.5 (4.5-10.0) K/mm3 RBC 4.21 (4.2-5.4) M/mm3 Hgb 13.3 (12.0-15.0) g/dL Hct 40.1 (37.0-47.0) % MCV 95.2 (80-100) fl MCH 31.6 (26-34) pg MCHC 33.2 (32-36) g/dl RDW 11.9 (11.5-14.5) % Plt Count 289 (150-375) k/mm3 MPV 8.9 (7.4-10.4) fl Immature Gran % (Auto) 0.4 (0-0.5) % Neut % (Auto) 67.6 (45.5-73.1) % Lymph % (Auto) 23.3 (18.3-44.2) % [place] % (Auto) 6.7 (2.6-8.5) % Eos % (Auto) 1.5 (0-4.4) % Baso % (Auto) 0.5 (0.2-1.2) % Lymph # (Auto) 1.99 (0.9-3.2) K/mm3 [place] # (Auto) 0.6 (0.1-0.6) K/mm3 Eos # (Auto) 0.1 (0-0.3) K/mm3 Baso # (Auto) 0.0 (0.0-0.1) K/mm3 Abs Immat Gran (auto) 0.03 (0.00-0.031) K/mm3 Absolute Neuts (auto) 5.8 (1.3-6.7) K/mm3 Absolute Nucleated RBC 0.000 (0.0-0.012) K/mm3 Nucleated RBC % 0.0 (0.0-0.2) % PT 13.2 (11.1-14.7) Seconds INR 1.0 APTT 26.0 (22.3-36.8) Seconds D-Dimer 0.31 (<0.48) ug/mL Sodium 137 (137-145) mmol/L Potassium 3.6 (3.4-5.0) mmol/L Chloride 100 (98-107) mmol/L Carbon Dioxide 27 (22-30) mmol/L Anion Gap 10 (4-12) mmol/L BUN 8 (7-17) mg/dL Creatinine 0.55 L (0.7-1.0) mg/dL Estim Creat Clear Calc Not Reportable Estimated GFR > 60 (59 - ) Glucose 111 H (65-110) mg/dL Calcium 9.4 (8.4-10.2) mg/dL Total Bilirubin 0.6 (0.2-1.3) mg/dL AST 54 H (14-36) U/L ALT 59 H (6-35) U/L Alkaline Phosphatase 111 (38-126) U/L Troponin I < 0.012 (0.000-0.034) ng/mL Total Protein 7.9 (6.3-8.2) g/dL Albumin 4.4 (3.5-5.1) g/dL Lipase 146 (23-300) U/L <Heather Geller PA-C - Last Filed: 02/28/25 09:25> Lab Results 02/27/25 02/27/25 Range/Units 11:36 11:37 WBC 8.5 (4.5-10.0) K/mm3 RBC 4.21 (4.2-5.4) M/mm3 Hgb 13.3 (12.0-15.0) g/dL Hct 40.1 (37.0-47.0) % MCV 95.2 (80-100) fl MCH 31.6 (26-34) pg MCHC 33.2 (32-36) g/dl RDW 11.9 (11.5-14.5) % Plt Count 289 (150-375) k/mm3 MPV 8.9 (7.4-10.4) fl Immature Gran % (Auto) 0.4 (0-0.5) % Neut % (Auto) 67.6 (45.5-73.1) % Lymph % (Auto) 23.3 (18.3-44.2) % [place] % (Auto) 6.7 (2.6-8.5) % Eos % (Auto) 1.5 (0-4.4) % Baso % (Auto) 0.5 (0.2-1.2) % Lymph # (Auto) 1.99 (0.9-3.2) K/mm3 [place] # (Auto) 0.6 (0.1-0.6) K/mm3 Eos # (Auto) 0.1 (0-0.3) K/mm3 Baso # (Auto) 0.0 (0.0-0.1) K/mm3 Abs Immat Gran (auto) 0.03 (0.00-0.031) K/mm3 Absolute Neuts (auto) 5.8 (1.3-6.7) K/mm3 Absolute Nucleated RBC 0.000 (0.0-0.012) K/mm3 Nucleated RBC % 0.0 (0.0-0.2) % PT 13.2 (11.1-14.7) Seconds INR 1.0 APTT 26.0 (22.3-36.8) Seconds D-Dimer 0.31 (<0.48) ug/mL Sodium 137 (137-145) mmol/L Potassium 3.6 (3.4-5.0) mmol/L Chloride 100 (98-107) mmol/L Carbon Dioxide 27 (22-30) mmol/L Anion Gap 10 (4-12) mmol/L BUN 8 (7-17) mg/dL Creatinine 0.55 L (0.7-1.0) mg/dL Estim Creat Clear Calc Not Reportable Estimated GFR > 60 (59 - ) Glucose 111 H (65-110) mg/dL Calcium 9.4 (8.4-10.2) mg/dL Total Bilirubin 0.6 (0.2-1.3) mg/dL AST 54 H (14-36) U/L ALT 59 H (6-35) U/L Alkaline Phosphatase 111 (38-126) U/L Troponin I < 0.012 (0.000-0.034) ng/mL Total Protein 7.9 (6.3-8.2) g/dL Albumin 4.4 (3.5-5.1) g/dL Lipase 146 (23-300) U/L <Feli Bailey MD - Last Filed: 02/27/25 15:04> Imaging Data Radiologist's impression: ITS Impressions Chest X-Ray 02/27/25 12:48 IMPRESSION: No acute process. <Feli Bailey MD - Last Filed: 02/27/25 15:04> ECG Data EKG #1: Attestation: I personally reviewed and interpreted this ECG as follows: <Feli Bailey MD - Last Filed: 02/27/25 15:04> ECG completion date: 02/27/25 <Feli Bailey MD - Last Filed: 02/27/25 15:04> ECG completion time: 11:18 <Feli Bailey MD - Last Filed: 02/27/25 15:04> EKG Interpretation: normal rate (73), sinus rhythm, no ST changes and NL axis <Feli Bailey MD - Last Filed: 02/27/25 15:04> Critical Care Time Critical Care Time Critical Care Time: No <Heather Geller PA-C - Last Filed: 02/28/25 09:25> Discharge Plan Discharge Clinical Impression: Atypical chest pain <Heather Geller PA-C - Last Filed: 02/28/25 09:25> Patient Disposition: Home <Heather Geller PA-C - Last Filed: 02/28/25 09:25> Condition: Stable <Heather Geller PA-C - Last Filed: 02/28/25 09:25> Instructions: Antibiotic Form, Chest Pain (ED) <Heather Geller PA-C - Last Filed: 02/28/25 09:25> Additional Instructions: Please follow up with your primary care provider. Return to ER if your symptoms worsen. <Heather Geller PA-C - Last Filed: 02/28/25 09:25> Patient Language: Swedish <Heather Geller PA-C - Last Filed: 02/28/25 09:25> Prescriptions: No Action gabapentin 300 mg capsule 300 mg PO DAILY cyclobenzaprine 10 mg tablet 10 mg PO TID hydrocodone-acetaminophen 5-325 mg tablet 1 tablet PO Q8H PRN amlodipine 2.5 mg tablet 2.5 mg PO DAILY montelukast 10 mg tablet 10 mg PO DAILY duloxetine 60 mg capsule,delayed release(DR/EC) 60 mg PO DAILY Linzess 145 mcg capsule 145 mcg PO DAILY eszopiclone 2 mg tablet 2 mg PO QHS Qty: 1 0RF Rx Instructions: Take tablet with you to sleep center for sleep study. <Heather Geller PA-C - Last Filed: 02/28/25 09:25> Follow-up/Referrals: Honoriodan,Aaron Mathis MD [Non-Staff] <Heather Geller PA-C - Last Filed: 02/28/25 09:25> Quality HEART score for chest pain patients History: slightly suspicious <Feli Bailey MD - Last Filed: 02/27/25 15:04> ECG: normal <Feli Bailey MD - Last Filed: 02/27/25 15:04> Age: > 45 and < 65 years <Feli Bailey MD - Last Filed: 02/27/25 15:04> Risk factors: 1 or 2 risk factors <Feli Bailey MD - Last Filed: 02/27/25 15:04> Troponin: < or = to 1x normal limit <Feli Bailey MD - Last Filed: 02/27/25 15:04> Heart score: 2 <Heather Geller PA-C - Last Filed: 02/28/25 09:25> 2 <Feli Bailey MD - Last Filed: 02/27/25 15:04>
[2025-02-27] MEDS: ASPIRIN 81 MG CHEWABLE TABLET 324 MG PO (13:24)
--- OUTSIDE RECORDS SUMMARY | 2025-02-27 15:25 | XMS_ITS | Clinical Summary ---
Author Organization [facility] Address [address] [place] [address] Care Team Providers Care Sap Pp Consultant Name Role Phone Froilan Villeda MD Unavailable Froilan Villeda MD Primary Care Provider [phone] Source Comments [facility],non-owned Affiliates and Associated Physician Practices is amultiple site organization consisting of ambulatory clinics and hospital sitesin [place], [place], [place] and [place]. This disclosure is being madepursuant to the Care Everywhere program and may not contain all information available regarding this patient. 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 [place] [employer] Association National Center: http://www.americanheart.org 1. In the top header, click C onditions . 2. In the top header, click h igh blood pressure. 3. For a printable blood pressure tracker, scroll toward the bottom of the page to Related Tools, and click H BP Trackers. 8-606-LOR-USA-1 or ( ) National Heart, Lung and Blood [place]: http://www.nhlbi.nih.gov/health/infoctr/index.htm Blood Pressure < 140/90 Blood Pressure [...] Where can I go for more information? [place] [employer] Association National Center: http://www.americanheart.org 1. In the top header, click C onditions . 2. In the top header, click h igh blood pressure. 3. For a printable blood pressure tracker, scroll toward the bottom of the page to Related Tools, and click H BP Trackers. 4-450-SGP-USA-1 or ( ) National Heart, Lung and Blood [place]: http://www.nhlbi.nih.gov/health/infoctr/index.htm Exercise 5X per week (30 min per time) Exercise Gurpreet Patel Note: The [place] College of [employer] recommends all adults [...] to Pro Sol. Resulting Agency Comment [facility] [address] [facility] [id number] us Radha Brewer MD LAB - CHEMISTRY ORDERABLES Fin al Result [facility] ACCOUNT BILL [address] [place] [address] from Last 3 Months or Most Recently Relevant to Health Maintenance Insurance [facility] Care Teams Sap Pp Consultant Relationship Specialty Start Date End Date Froilan Villeda MD [facility]ly [facility] [address] [place] [id number] PCP - Attributed-[facility] 09/11/23 Froilan Villeda MD [address] [facility] [address] [place] [address] PCP - General Internal Medicine 02/12/24
--- OUTSIDE RECORDS SUMMARY | 2025-02-27 15:25 | XMS_ITS | Clinical Summary ---
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 Medical Devices Implanted Type Area Fried Cake Maker Device Identifier Shelf Expiration Date Model / Serial / Lot Cervical Fusion Neck [employer] 700-962 I Factor Allograft Putty Syringe Graft 2.5cc Bone - [id number] Implanted:Qty : 1 on 05/06/2021 by Roque Prado MD at [facility] Right: Spine Cervical Cer[employer] Inc [id number] 01/10/2024 700-025 / / [id number] Hedron Ic Spacer 8x14 7mm Implanted:Qty : 1 on 05/06/2021 by Roque Prado MD at [facility] Right: Spine Cervical [employer] [id number] 05/06/2029 / [id number] / [id number] [employer] 1128.1207 Coalition Agx 14x7mm Spine Plate Bone - [id number] Implanted:Qty : 1 on 05/06/2021 by Roque Prado MD at [facility] Right: Spine Cervical [employer] 1128.1207 / / [employer] 184.154 3.6mm 14mm Variable Angle Self Drill Spine Standard Screw Bone - [id number] Implanted:Qty : 2 on 05/06/2021 by Roque Prado MD at [facility] Right: Spine Cervical [employer] 184.154 / / Depuy Synthes Spine Lock Cap Spine T15 Standard Screw Set Titanium Nonsterile [id number] - [id number] Implanted:Qty : 6 on 06/03/2022 by Roque Prado MD at [facility] N/A: Spine Cervical Depuy Synthes Spine [id number] / / Depuy Synthes Spine Graft Bone Filler Sm Inj Fibergraft Bg Gps 4cc Putty [id number] - [id number] Implanted:Qty : 1 on 06/03/2022 by Roque Prado MD at [facility] N/A: Spine Cervical Depuy Synthes Spine 11/21/2023 [id number] / / [id number] Allosource Crushed Fresh Frozen Cancellous 1-4mm Graft 15ml Bone [id number] - [id number] Implanted:Qty : 1 on 06/03/2022 by Roque Prado MD at [facility] N/A: Spine Cervical [employer]osource 12/31/2022 [id number] / / [id number] Depuy Synthes Spine 3.5mm 14mm Ply Spine Screw Bone Nonsterile 4mm Ronald [id number] - [id number] Implanted:Qty : 6 on 06/03/2022 by Roque Prado MD at [facility] N/A: Spine Cervical Depuy Synthes Spine [id number] / / Depuy Synthes Spine 3.5mm 40mm Lordosis Ronald Spinal Titanium [id number] - [id number] Implanted:Qty : 2 on 06/03/2022 by Roque Prado MD at [facility] N/A: Spine Cervical Depuy Synthes Spine [id number] / / Procedures Procedure Name Priority Date/Time Associated Diagnosis Comments SCREENING MAMMOGRAM BILATERAL W HARDIK Schedule Routine, Read Routine (OP Routine) 09/02/2019 1:38 PM OUTPATIENT PHLEBOTOMIST Encounter for screening mammogram for malignant neoplasm of breast from Last 3 Months or Most Recently Relevant to Health Maintenance Results * Screening Mammogram Bilateral W Hardik (09/02/2019 1:38 PM OUTPATIENT PHLEBOTOMIST) Anatomical Region Laterality Modality Breast Bilateral Mammography 09/05/2019 11:1 7 AM OUTPATIENT PHLEBOTOMIST Impressions 09/05/2019 11:20 AM OUTPATIENT PHLEBOTOMIST There is no mammographic evidence of malignancy. A 1 year screening mammogram is recommended. BI-RADS: 1 - Negative. The patient will be entered into a reminder system with a target due date of 1 year for her next mammogram. Electronically signed by: Aaron Garcia M.D. Narrative 09/05/2019 11:20 AM OUTPATIENT PHLEBOTOMIST EXAMINATION: SCREENING MAMMOGRAM BILATERAL W HARDIK ORDERING [...] Most Recently Relevant to Health Maintenance Insurance [facility] GENERIC Advance Directives For more information, please contact: [phone] * Full Code (Latest Code Status on File) Date Activated Date Inactivated Comments 06/03/2022 6:48 PM 06/04/2022 9:23 PM * Full Code Date Activated Date Inactivated Comments 05/06/2021 4:21 PM 05/07/2021 5:27 PM Care Teams Typewriters Functional Tester Relationship Specialty Start Date End Date Froilan Villeda MD [address] [place] [address] PCP - General Internal Medicine 09/28/23
--- OUTSIDE RECORDS SUMMARY | 2025-02-27 15:25 | XMS_ITS | Encounter Summary ---
Author Organization [facility] Health Address [address] [place] [address] Care Team Providers Care Biofuels Technology Development Manager Name Role Phone Radha Brewer MD Primary Care Provider [phone] Aaron Prakash MD Primary Care Provider Froilan Villeda MD Unavailable Froilan Villeda MD Primary Care Provider [phone] Radha Brewer MD Unavailable [phone] Encounter Details Date Type Department Care Team (Late st Contact Info) Description 02/04/2016 Lab Requisition [facility] [address] [place] [address] Unknown, Provider Social History Tobacco Use Types [...] (Late Contact Info) Description 06/16/2025 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 Office Visit [facility] - Dermatology [address] [place] [phone] Sharri Metzger MD [address] [facility] [address] [place] [phone] documented as of this encounter Procedures Procedure [...] >165 index 02/06/2016 1:14 PM CDT [facility] ([facility]) Comment: Negative <135 Equivocal 135 - 165 Positive >165 A positive result generally indicates exposure to the pathogen or administration of specific immunoglobulins, but it is not indication of active infection or stage of disease. Blood specimen (specimen) BLOOD SPECIMEN / Unknown Venipuncture / Unknown 02/04/2016 8:50 AM CDT 02/04/2016 7:32 PM CDT Narrative [facility] ([facility]) - 02/06/2016 1:14 PM CDT Performed at: [facility] [address] [place] [address] [id number] Evaluator: Antonio Blanco PhD, Phone: [phone] us Provider Unknown LAB - CHEMISTRY ORDERABLES Lfor l Result [facility] ([facility]) [address] [place] [address] * RUBEOLA ANTIBODY IGG (02/04/2016 8:50 AM CDT) [facility] Measles (Rubeola) Antibody IgG 101.0 Immune >29.9 AU/mL 02/06/2016 1:14 PM CDT [facility] ([facility]) Comment: Negative <25.0 Equivocal 25.0 - 29.9 Positive >29.9 Presence of antibodies to Rubeola is presumptive evidence of immunity except when acute infection is suspected. Blood specimen (specimen) BLOOD SPECIMEN / Unknown Venipuncture / Unknown 02/04/2016 8:50 AM CDT 02/04/2016 7:32 PM CDT [facility]ative [facility] - 02/06/2016 1:14 PM CDT Performed at: [address] [place] [id number] Evaluator: Antonio Blanco PhD, Phone: [phone] Provider Unknown LAB - CHEMISTRY ORDERABLES Flro l Result Performing Organization Address [facility] de Phone Number [facility] [address] [place] [address] * MUMPS ANTIBODY IGG (02/04/2016 8:50 AM CDT) [facility] Mumps Virus Antibody IgG Index 29.8 Immune >10.9 AU/mL 02/06/2016 1:14 PM CDT [facility] Comment: Negative <9.0 Equivocal 9.0 - 10.9 Positive >10.9 A positive result generally indicates past exposure to Mumps virus or previous vaccination. Blood specimen (specimen) BLOOD SPECIMEN / Unknown Venipuncture / Unknown 02/04/2016 8:50 AM CDT 02/04/2016 7:32 PM CDT [facility]ative [facility] - 02/06/2016 1:14 PM CDT Performed at: [address] [place] [address] [id number] Evaluator: Antonio Blanco PhD, Phone: [phone] us Provider Unknown LAB - CHEMISTRY ORDERABLES Flor l Result Performing Organization Address [facility] de Phone Number [facility] [address] [facility] [address] * RUBELLA ANTIBODY IGG (02/04/2016 8:50 AM CDT) Rubella Antibody IgG Positive - Immune 02/04/2016 8:42 PM CDT [facility] Blood BLOOD SPECIMEN / Unknown Venipuncture / Unknown 02/04/2016 8:50 AM CDT 02/04/2016 7:32 PM CDT Provider Unknown LAB - SEROLOGY ORDERABLES Final Result Performing Organization Address [facility] Co de Phone Number [facility] [address] [place] [address] * (ABNORMAL) HEPATITIS B SURFACE ANTIBODY (02/04/2016 8:50 AM CDT) HBsAb REACTIVE(A ) Non Reactive 02/04/2016 8:42 PM CDT [facility] Blood BLOOD SPECIMEN / Unknown Venipuncture / Unknown 02/04/2016 8:50 AM CDT 02/04/2016 7:32 PM CDT us Provider Unknown LAB - CHEMISTRY ORDERABLES Flor l Result Performing Organization Address [facility] Co de Phone Number [facility] [address] [place] [address] documented in this encounter Visit Diagnoses Not on filedocumented in this encounter Care Teams Biofuels Technology Development Manager Relationship Specialty Start Date End Date Radha Brewer MD PCP - General Family Medicine 04/30/16 02/08/19 Aaron Prakash MD [address] [place] [phone] PCP - General 01/20/22 02/11/24 Froilan Villeda MD [address] [place] [address] [place] [address] PCP - Attributed-[facility] 09/11/23 Froilan Villeda MD [address] [facility] [address] [place], [place] [id number] PCP - General Internal Medicine 02/12/24 Radha Brewer MD [address] [facility] [address] [place] [phone] PCP - Attributed-[facility] 12/26/16 05/02/17 documented as of this encounter
--- OUTSIDE RECORDS SUMMARY | 2025-02-27 15:25 | XMS_ITS | Encounter Summary ---
Author Organization [facility] Healthcare Address [address] [place] [address] Care Team Providers Care Count Team Clerk Name Role Phone Aaron Prakash MD Primary Care Provider + Froilan Villeda MD Primary Care Provider [phone] Encounter Details Date Type Department Care Team (Late st Contact Info) Description 09/10/2020 Telephone [facility] [address] [place], [place] [phone] Kayla Blevins, RT Social History Tobacco Use Types Packs/Day Years Used Date Smoking Tobacco: Never Smokeless Tobacco: Never Alcohol Use Standard Drinks/Week Comments Yes 0 (1 standard drink = 0.6 oz pur e alcohol) Comments No Sex and Gender Information Value Date Recorded Sex Assigned at Not on file 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
--- OUTSIDE RECORDS SUMMARY | 2025-02-27 15:25 | XMS_ITS | Clinical Summary ---
Author Organization [employer] 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 Gender Identity Not on file Sexual Orientation [...] 12/31/2018, 12/11/2001 Medical Devices Implanted Type Area Weather Clerk Device Identifier Shelf Expiration Date Model / Serial / Lot Hemostatic Surgiflo 8ml W/Thrombin 2994 - [id number] Implanted:Qty: 1 on 01/23/2020 by Srinath Matos MD at [facility] Hemostatic N/A: Spine Cervical Anterior [employer]- [employer] 11/09/2020 2994 / / [id number] Plate Uniplate I Lvl 16mm - Sload Number [id number] Implanted:Qty: 1 on 01/23/2020 by Srinath Matos MD at [facility] Plate N/A: Spine Cervical Anterior [employer]- [employer] / LOAD NUMBER 411 / [facility] ED ON 01/18/20 20 Description:All Depuy spinal hardware was processed on requisition [id number]. Screw Uniplate Sd 14mm - Sload Number [id number] Implanted:Qty: 2 on 01/23/2020 by Srinath Matos MD at [facility] Screw N/A: Spine Cervical Anterior [employer] / LOAD NUMBER 411 / [facility] ED ON 01/18/20 20 Allograft Spacer Acf 7mm [id number] - [id number] Implanted:Qty: 1 on 01/23/2020 by Srinath Matos MD at [facility] Tissue N/A: Spine Cervical Anterior [employer]CULOSKELETAL TRANSPLANT FOU 03/15/2024 [id number] / [id number] / Procedures Procedure Name Priority Date/Time Associated [...] Advance Directives For more information, please contact: [phone] * Full Code (Latest Code Status on File) Date Activated Date Inactivated Comments 01/23/2020 9:34 AM 01/23/2020 4:28 PM Care Teams Composite Technician Relationship Specialty Start Date End Date Aaron Prakash MD PCP - General Internal Medicine 01/27/18
--- OUTSIDE RECORDS SUMMARY | 2025-02-27 15:25 | XMS_ITS | Encounter Summary ---
Author Organization [facility] Address [address] [place] [address] Care Team Providers Care Driver Helper Name Role Phone Aaron Prakash MD Primary Care Provider [phone] Reason for Visit * Reason Onset Date Comments Medication Refill 02/09/2015 Encounter Details Date Type Department Care Team (Late st Contact Info) Description 02/09/2015 Refill [facility] [id number] [place] [address] [address] [place] [address] Danni Piña NP NO ADDRESS ON FILE Social History Tobacco Use Types Packs/Day Years Used Date Smoking Tobacco: Never Smokeless Tobacco: Never Alcohol Use Standard Drinks/Week Comments Yes 5.8 (1 standard drink = 0.6 oz p ure alcohol) Comments No Sex and Gender Information Value Date Recorded Sex Assigned at Not on file 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
== END 2025-02-27 15:07 | disposition home or self-care (01) ==
PROVIDERS: Emergency Provider General Practice; PCP Internal Medicine
DX: R07.89 Other chest pain (principal); F41.9 Anxiety disorder, unspecified; K21.9 Gastro-esophageal reflux disease without esophagitis; I10 Essential (primary) hypertension
CPT/HCPCS: 36415; 71046; 80053; 83690; 84484; 85025; 85380; 85610; 85730; 93005; 99284; A9270